=== PATIENT | female | born 1995 | race African-American/Black ===

== ENCOUNTER 2017-10-26 17:52 | Inpatient (IN) ==
[2017-10-26 19:39] LABS: Apearance,Urine CLOUDY (Clear); Bacteria,Urine Occasional /HPF (Few); Bilirubin,Urine Negative (Negative); Blood, Urine Small mg/dL (Negative); Glucose,Urine (UA) >=500 mg/dL (Negative); Granular Casts,Urine 2 /LPF (0-1); Hyaline Casts,Urine 5 /LPF (0-3); Ketones,Urine 20 mg/dL (Negative); Mucus,Urine Few /LPF (Occasional); Nitrite,Urine Negative (Negative); Protein,Urine 100 MG/DL; RBC,Urine 7 /HPF (0-4); Squamous Epithelial Cell,Urine Occasional /HPF (0-10); Urine Color Amber (Yellow); Urine Specific Gravity 1.022 (1.001-1.035); WBC,Urine 20 /HPF (0-6)
[2017-10-26] MEDS ORDERED: ONDANSETRON 4 MG/2 ML VIAL IV STA (20:12)
[2017-10-26] MEDS ORDERED: SODIUM CHLORIDE 0.9% 1,000 ML IV STA (20:12)
[2017-10-26] MEDS ORDERED: INSULIN REGULAR 100 UNIT/ML IV STA (20:13)
[2017-10-26] MEDS ORDERED: cefTRIAXone 1,000 MG in SODIUM CHLORIDE 0.9% 100 ML IV STA (20:13)
[2017-10-26] MEDS ORDERED: cefTRIAXone 1,000 MG VIAL ONE (20:15)
[2017-10-26 20:19] LABS: Basophils % 0.4 % (0.0-0.8); Eosinophils % 0.5 % (0.00-10.9); Hematocrit 30.7 VOL% (35.7-47.0); Hemoglobin 9.8 GM/DL (12.0-16.0); Immature Granulocytes % 0.5 %; Immature Granulocytes Absolute 0.04 #; Lymphocytes # 1.3 10*3/uL (1.4-4.0); Lymphocytes % 15.6 % (21.3-54.2); Mean Corpuscular HGB Conc 31.9 GM/DL (32-36); Mean Corpuscular Hemoglobin 25 PG (27-34); Mean Corpuscular Volume 79.3 FL (87-102); Mean Platelet Volume 10.2 FL (9.6-12.0); Monocytes # 0.6 10*3/uL (0.11-0.8); Monocytes % 6.8 % (1.7-12.7); Neutrophils # 6.1 10*3/uL (1.4-7.4); Neutrophils % 76.2 % (38.7-73.9); Platelet Count 351 T/CUMM (130-400); Red Blood Count 3.87 MC/CUMM (3.8-5.5); Red Cell Distribution Width 13.2 % (9.3-17.3); White Blood Count 8.1 T/CUMM (4-12)
[2017-10-26] MEDS ORDERED: ONDANSETRON 4 MG/2 ML VIAL ONE (20:40)
[2017-10-26] MEDS ORDERED: INSULIN REGULAR 100 UNIT/ML ONE (20:42)
[2017-10-26 20:46] LABS: Alanine Aminotransferase 13 U/L (13-56); Albumin 2.1 G/DL (3.4-5.0); Alkaline Phosphatase 949 U/L (45-117); Amylase 42 U/L (25-115); Aspartate Amino Transferase 12 U/L (0-37); Bilirubin,Total < 0.39 MG/DL (0.2-1.0); Blood Urea Nitrogen 9 MG/DL (7-18); Glucose 349 MG/DL (74-106); Osmolality,Calculated 270.9 MOS/KG (273-304); Potassium 3.9 MMOL/L (3.5-5.1); Sodium 129 MMOL/L (136-145); Total Protein 8.5 G/DL (6.4-8.3)
[2017-10-26 23:59] LABS: Apearance,Urine Slightly Hazy (Clear); Bilirubin,Urine Negative (Negative); Blood, Urine Small mg/dL (Negative); Glucose,Urine (UA) >=500 mg/dL (Negative); Hyaline Casts,Urine 1 /LPF (0-3); Ketones,Urine 80 mg/dL (Negative); Mucus,Urine Occasional /LPF (Occasional); Nitrite,Urine Negative (Negative); Protein,Urine 100 MG/DL; RBC,Urine 13 /HPF (0-4); Squamous Epithelial Cell,Urine Occasional /HPF (0-10); Urine Color Yellow (Yellow); Urine Specific Gravity 1.027 (1.001-1.035); WBC,Urine 44 /HPF (0-6)
[2017-10-26] MEDS ORDERED: DEXTROSE 50% 25 GM/50 ML VIAL IV PRN (23:59)
[2017-10-26] MEDS ORDERED: GLUCAGON 1 MG VIAL IM PRN (23:59)
[2017-10-27] MEDS: ACETAMINOPHEN 325 MG TABLET PO PRN ×2 (00:59→11:19)
[2017-10-27] MEDS: AMPICILLIN INJ 2,000 MG in SODIUM CHLORIDE 0.9% 100 ML IV SCH ×4 (01:02→17:28)
[2017-10-27] MEDS: LACTATED RINGERS 1,000 ML IV SCH ×3 (01:05→22:06)
[2017-10-27] MEDS ORDERED: INSULIN LISPRO 100 UNIT/ML SUBCUT SCH (02:00)
[2017-10-27] MEDS ORDERED: GLUCAGON 1 MG VIAL IM PRN (02:12)
[2017-10-27] MEDS ORDERED: DEXTROSE 50% 25 GM/50 ML VIAL IV PRN (02:12)
[2017-10-27] MEDS: INSULIN REGULAR 100 UNIT/ML SUBCUT SCH ×4 (02:42→19:58)
[2017-10-27 04:31] LABS: Basophils % 0.3 % (0.0-0.8); Eosinophils % 0.5 % (0.00-10.9); Hematocrit 27.3 VOL% (35.7-47.0); Hemoglobin 8.9 GM/DL (12.0-16.0); Immature Granulocytes % 0.7 %; Immature Granulocytes Absolute 0.05 #; Lymphocytes # 1.4 10*3/uL (1.4-4.0); Lymphocytes % 18.7 % (21.3-54.2); Mean Corpuscular HGB Conc 32.6 GM/DL (32-36); Mean Corpuscular Hemoglobin 26 PG (27-34); Mean Corpuscular Volume 78.2 FL (87-102); Mean Platelet Volume 10.5 FL (9.6-12.0); Monocytes # 0.5 10*3/uL (0.11-0.8); Monocytes % 6.9 % (1.7-12.7); Neutrophils # 5.5 10*3/uL (1.4-7.4); Neutrophils % 72.9 % (38.7-73.9); Platelet Count 339 T/CUMM (130-400); Red Blood Count 3.49 MC/CUMM (3.8-5.5); White Blood Count 7.5 T/CUMM (4-12)
[2017-10-27 04:56] LABS: Albumin 1.8 G/DL (3.4-5.0); Bilirubin,Total 0.4 MG/DL (0.2-1.0); Calcium 8.2 MG/DL (8.5-10.1); Osmolality,Calculated 275.5 MOS/KG (273-304); Potassium 3.8 MMOL/L (3.5-5.1); Total Protein 6.6 G/DL (6.4-8.3)
[2017-10-27] MEDS: ONDANSETRON 4 MG/2 ML VIAL IV PRN (11:24)
[2017-10-27] MEDS: DOCUSATE SODIUM 100 MG CAPSULE PO SCH (22:06)
[2017-10-28] MEDS: AMPICILLIN INJ 2,000 MG in SODIUM CHLORIDE 0.9% 100 ML IV SCH ×2 (00:23→06:19)
[2017-10-28] MEDS: INSULIN REGULAR 100 UNIT/ML SUBCUT SCH ×2 (01:53→07:42)
[2017-10-28] MEDS: ACETAMINOPHEN 325 MG TABLET PO PRN (07:01)
[2017-10-28] MEDS: ONDANSETRON 4 MG/2 ML VIAL IV PRN (07:06)
[2017-10-28 07:21] VITALS: BP 114/70
[2017-10-28] MEDS: LACTATED RINGERS 1,000 ML IV SCH ×2 (09:58)
[2017-10-28] MEDS: DOCUSATE SODIUM 100 MG CAPSULE PO SCH (09:59)
== END 2017-10-28 12:45 | disposition home or self-care (01) | DRG 566 ==
LOC: N.ED 17:52 → N.EDINP 22:04 → N.OB 22:29
PROVIDERS: ADMIT Obstetrics & Gynecology; ATTEND Obstetrics & Gynecology

== ENCOUNTER 2017-10-28 14:33 | Inpatient (IN) ==
[2017-10-28 16:15] LABS: Basophils % 0.4 % (0.0-0.8); Eosinophils # 0.1 10*3/uL (0.0-0.87); Eosinophils % 1.3 % (0.00-10.9); Hematocrit 29.3 VOL% (35.7-47.0); Hemoglobin 9.5 GM/DL (12.0-16.0); Immature Granulocytes % 0.4 %; Immature Granulocytes Absolute 0.03 #; Lymphocytes # 1.3 10*3/uL (1.4-4.0); Lymphocytes % 16.7 % (21.3-54.2); Mean Corpuscular HGB Conc 32.4 GM/DL (32-36); Mean Corpuscular Hemoglobin 26 PG (27-34); Mean Corpuscular Volume 80.1 FL (87-102); Mean Platelet Volume 10.3 FL (9.6-12.0); Monocytes # 0.5 10*3/uL (0.11-0.8); Monocytes % 7.2 % (1.7-12.7); Neutrophils # 5.6 10*3/uL (1.4-7.4); Platelet Count 339 T/CUMM (130-400); Red Blood Count 3.66 MC/CUMM (3.8-5.5); Red Cell Distribution Width 13.3 % (9.3-17.3); White Blood Count 7.5 T/CUMM (4-12)
[2017-10-28 16:31] LABS: Calcium 8.7 MG/DL (8.5-10.1); Osmolality,Calculated 273.4 MOS/KG (273-304); Potassium 4.2 MMOL/L (3.5-5.1)
[2017-10-28] MEDS ORDERED: ceFAZolin 1,000 MG in SYRINGE 1 EACH IV SCH (17:00)
[2017-10-28] MEDS ORDERED: ceFAZolin 1,000 MG VIAL ONE (17:07)
[2017-10-28 17:34] LABS: Apearance,Urine CLEAR (Clear); Bacteria,Urine Occasional /HPF (Few); Bilirubin,Urine Negative (Negative); Blood, Urine Negative (Negative); Glucose,Urine (UA) >=500 mg/dL (Negative); Ketones,Urine 5 mg/dL (Negative); Mucus,Urine Occasional /LPF (Occasional); Nitrite,Urine Negative (Negative); Protein,Urine 30 MG/DL; RBC,Urine 2 /HPF (0-4); Squamous Epithelial Cell,Urine Occasional /HPF (0-10); Urine Color Yellow (Yellow); Urine Specific Gravity 1.015 (1.001-1.035); WBC,Urine 3 /HPF (0-6)
[2017-10-28] MEDS ORDERED: BISACODYL 10 MG SUPP RECTAL PRN (17:57)
[2017-10-28] MEDS ORDERED: ACETAMINOPHEN 325 MG TABLET PO PRN (17:57)
[2017-10-28] MEDS ORDERED: GLUCAGON 1 MG VIAL IM PRN ×2 (17:57→18:16)
[2017-10-28] MEDS ORDERED: MAGNESIUM HYDROXIDE SUSP 30 ML UDCUP PO PRN (17:57)
[2017-10-28] MEDS ORDERED: LACTATED RINGERS 1,000 ML IV SCH (17:57)
[2017-10-28] MEDS ORDERED: DEXTROSE 50% 25 GM/50 ML VIAL IV PRN ×3 (17:57→18:18)
[2017-10-28] MEDS ORDERED: INSULIN NPH 100 UNIT/ML SUBCUT ONE (18:30)
[2017-10-28] MEDS ORDERED: INSULIN REGULAR 100 UNIT/ML SUBCUT ONE (18:30)
[2017-10-28] MEDS: DOCUSATE SODIUM 100 MG CAPSULE PO SCH (23:35)
[2017-10-29 06:34] LABS: Basophils % 0.5 % (0.0-0.8); Eosinophils # 0.1 10*3/uL (0.0-0.87); Eosinophils % 1.4 % (0.00-10.9); Hematocrit 26.6 VOL% (35.7-47.0); Hemoglobin 8.6 GM/DL (12.0-16.0); Immature Granulocytes % 0.5 %; Immature Granulocytes Absolute 0.03 #; Lymphocytes # 1.4 10*3/uL (1.4-4.0); Lymphocytes % 21.2 % (21.3-54.2); Mean Corpuscular HGB Conc 32.3 GM/DL (32-36); Mean Corpuscular Hemoglobin 26 PG (27-34); Mean Corpuscular Volume 79.4 FL (87-102); Mean Platelet Volume 10.3 FL (9.6-12.0); Monocytes # 0.6 10*3/uL (0.11-0.8); Monocytes % 9.7 % (1.7-12.7); Neutrophils # 4.3 10*3/uL (1.4-7.4); Neutrophils % 66.7 % (38.7-73.9); Platelet Count 315 T/CUMM (130-400); Red Blood Count 3.35 MC/CUMM (3.8-5.5); Red Cell Distribution Width 13.2 % (9.3-17.3); White Blood Count 6.4 T/CUMM (4-12)
[2017-10-29] MEDS: DOCUSATE SODIUM 100 MG CAPSULE PO SCH ×2 (08:16→22:06)
[2017-10-29] MEDS ORDERED: DEXTROSE 50% 25 GM/50 ML VIAL IV PRN ×5 (08:28→17:12)
[2017-10-29] MEDS ORDERED: GLUCAGON 1 MG VIAL IM PRN ×5 (08:28→17:12)
[2017-10-29] MEDS ORDERED: LIDOCAINE 1% 5 ML VIAL ONE (08:42)
[2017-10-29] MEDS: INSULIN REGULAR 100 UNIT/ML SUBCUT SCH ×5 (09:13→21:53)
[2017-10-29] MEDS ORDERED: PROPOFOL 200 MG/20 ML VIAL IV ONE (10:12)
[2017-10-29] MEDS ORDERED: fentaNYL 100 MCG/2 ML VIAL ONE (10:12)
[2017-10-29] MEDS ORDERED: ONDANSETRON 4 MG/2 ML VIAL ONE (10:12)
[2017-10-29] MEDS ORDERED: ACETAMINOPHEN 1,000 MG/100 ML VIAL IV ONE (10:17)
[2017-10-29] MEDS ORDERED: ACETAMINOPHEN INJ 1,000 MG in PREMIX 1 EACH IV ONE (10:19)
[2017-10-29] MEDS ORDERED: INSULIN NPH 100 UNIT/ML SUBCUT ONE (22:00)
[2017-10-30] MEDS: ONDANSETRON 4 MG/2 ML VIAL IV PRN ×2 (00:11→11:40)
[2017-10-30] MEDS ORDERED: ACETAMINOPHEN 325 MG TABLET PO PRN (00:18)
[2017-10-30] MEDS ORDERED: ACETAMINOPHEN 325 MG TABLET ONE (00:26)
[2017-10-30 06:35] LABS: Basophils % 0.3 % (0.0-0.8); Eosinophils # 0.1 10*3/uL (0.0-0.87); Eosinophils % 1.4 % (0.00-10.9); Hematocrit 24.4 VOL% (35.7-47.0); Hemoglobin 8.1 GM/DL (12.0-16.0); Immature Granulocytes % 0.5 %; Immature Granulocytes Absolute 0.03 #; Lymphocytes # 1.4 10*3/uL (1.4-4.0); Lymphocytes % 22.5 % (21.3-54.2); Mean Corpuscular HGB Conc 33.2 GM/DL (32-36); Mean Corpuscular Hemoglobin 26 PG (27-34); Mean Corpuscular Volume 78.5 FL (87-102); Mean Platelet Volume 10.4 FL (9.6-12.0); Monocytes # 0.5 10*3/uL (0.11-0.8); Monocytes % 8.2 % (1.7-12.7); Neutrophils # 4.2 10*3/uL (1.4-7.4); Neutrophils % 67.1 % (38.7-73.9); Platelet Count 321 T/CUMM (130-400); Red Blood Count 3.11 MC/CUMM (3.8-5.5); Red Cell Distribution Width 13.4 % (9.3-17.3); White Blood Count 6.2 T/CUMM (4-12)
[2017-10-30] MEDS: ACETAMINOPHEN 500 MG TABLET PO PRN (07:00)
[2017-10-30] MEDS ORDERED: INSULIN NPH 100 UNIT/ML SUBCUT SCH ×3 (07:30→18:52)
[2017-10-30] MEDS: INSULIN REGULAR 100 UNIT/ML SUBCUT SCH ×7 (07:49→20:57)
[2017-10-30] MEDS ORDERED: FERROUS SULFATE ER 140 MG TABLET PO SCH (09:00)
[2017-10-30] MEDS: DOCUSATE SODIUM 100 MG CAPSULE PO SCH ×2 (10:09→22:19)
[2017-10-30] MEDS: CALCIUM CARBONATE CHEW 500 MG TABLET PO PRN (16:04)
[2017-10-30] MEDS ORDERED: INSULIN REGULAR 100 UNIT/ML SUBCUT SCH (18:52)
[2017-10-30] MEDS: CLINDAMYCIN INJ 600 MG in PREMIX 1 EACH IV SCH (19:35)
[2017-10-30] MEDS: ENOXAPARIN 40 MG/0.4 ML SYRINGE SUBCUT SCH (19:36)
[2017-10-31] MEDS: CLINDAMYCIN INJ 600 MG in PREMIX 1 EACH IV SCH ×3 (03:31→18:07)
[2017-10-31] MEDS: CALCIUM CARBONATE CHEW 500 MG TABLET PO PRN (03:36)
[2017-10-31] MEDS: ACETAMINOPHEN 500 MG TABLET PO PRN (03:36)
[2017-10-31 04:07] LABS: Basophils % 0.3 % (0.0-0.8); Eosinophils # 0.1 10*3/uL (0.0-0.87); Eosinophils % 1.4 % (0.00-10.9); Hemoglobin 8.2 GM/DL (12.0-16.0); Immature Granulocytes % 0.5 %; Immature Granulocytes Absolute 0.03 #; Lymphocytes # 1.5 10*3/uL (1.4-4.0); Lymphocytes % 24.2 % (21.3-54.2); Mean Corpuscular HGB Conc 31.5 GM/DL (32-36); Mean Corpuscular Hemoglobin 26 PG (27-34); Mean Corpuscular Volume 80.7 FL (87-102); Mean Platelet Volume 10.8 FL (9.6-12.0); Monocytes # 0.6 10*3/uL (0.11-0.8); Neutrophils # 4.1 10*3/uL (1.4-7.4); Neutrophils % 64.6 % (38.7-73.9); Platelet Count 324 T/CUMM (130-400); Red Blood Count 3.22 MC/CUMM (3.8-5.5); Red Cell Distribution Width 13.5 % (9.3-17.3); White Blood Count 6.3 T/CUMM (4-12)
[2017-10-31] MEDS ORDERED: INSULIN REGULAR 100 UNIT/ML SUBCUT SCH ×2 (07:30→16:30)
[2017-10-31] MEDS: DOCUSATE SODIUM 100 MG CAPSULE PO SCH ×2 (08:07→21:31)
[2017-10-31] MEDS: FERROUS SULFATE ER 140 MG TABLET PO SCH ×2 (08:07→21:31)
[2017-10-31] MEDS: INSULIN REGULAR 100 UNIT/ML SUBCUT SCH ×3 (09:49→20:15)
[2017-10-31] MEDS: INSULIN NPH 100 UNIT/ML SUBCUT SCH (16:27)
[2017-10-31] MEDS: ENOXAPARIN 40 MG/0.4 ML SYRINGE SUBCUT SCH (18:07)
[2017-10-31] MEDS ORDERED: INSULIN NPH 100 UNIT/ML SUBCUT SCH (21:16)
[2017-11-01] MEDS: INSULIN REGULAR 100 UNIT/ML SUBCUT SCH ×6 (02:35→20:35)
[2017-11-01] MEDS: CLINDAMYCIN INJ 600 MG in PREMIX 1 EACH IV SCH ×3 (02:38→18:08)
[2017-11-01] MEDS: DOCUSATE SODIUM 100 MG CAPSULE PO SCH ×2 (09:03→22:31)
[2017-11-01] MEDS: FERROUS SULFATE ER 140 MG TABLET PO SCH ×2 (09:04→22:33)
[2017-11-01] MEDS: MULTIVITAMIN (PRENATAL) TABLET PO SCH (10:00)
[2017-11-01] MEDS: INSULIN NPH 100 UNIT/ML SUBCUT SCH (16:35)
[2017-11-01] MEDS: ENOXAPARIN 40 MG/0.4 ML SYRINGE SUBCUT SCH (18:12)
[2017-11-01] MEDS: ceFAZolin 1,000 MG in SYRINGE 1 EACH IV SCH (22:33)
[2017-11-02] MEDS: ceFAZolin 1,000 MG in SYRINGE 1 EACH IV SCH ×3 (06:09→21:39)
[2017-11-02] MEDS: INSULIN REGULAR 100 UNIT/ML SUBCUT SCH ×7 (06:15→20:45)
[2017-11-02] MEDS: INSULIN NPH 100 UNIT/ML SUBCUT SCH ×2 (08:45→17:30)
[2017-11-02] MEDS: MULTIVITAMIN (PRENATAL) TABLET PO SCH (08:51)
[2017-11-02] MEDS: DOCUSATE SODIUM 100 MG CAPSULE PO SCH ×2 (08:51→21:37)
[2017-11-02] MEDS: FERROUS SULFATE ER 140 MG TABLET PO SCH ×2 (08:51→21:37)
[2017-11-02] MEDS: ENOXAPARIN 40 MG/0.4 ML SYRINGE SUBCUT SCH (17:55)
[2017-11-03] MEDS: ACETAMINOPHEN 500 MG TABLET PO PRN (00:33)
[2017-11-03] MEDS: ceFAZolin 1,000 MG in SYRINGE 1 EACH IV SCH ×2 (05:47→13:31)
[2017-11-03] MEDS: INSULIN REGULAR 100 UNIT/ML SUBCUT SCH ×6 (07:26→20:19)
[2017-11-03] MEDS: INSULIN NPH 100 UNIT/ML SUBCUT SCH ×2 (09:03→17:37)
[2017-11-03] MEDS: FERROUS SULFATE ER 140 MG TABLET PO SCH ×2 (09:08→20:19)
[2017-11-03] MEDS: DOCUSATE SODIUM 100 MG CAPSULE PO SCH ×2 (09:08→20:19)
[2017-11-03] MEDS: MULTIVITAMIN (PRENATAL) TABLET PO SCH (09:08)
[2017-11-03] MEDS: ENOXAPARIN 40 MG/0.4 ML SYRINGE SUBCUT SCH (17:38)
[2017-11-03] MEDS: AMOXICILLIN/CLAV 500 MG TABLET PO SCH (20:19)
[2017-11-04 07:06] VITALS: BP 129/77
[2017-11-04] MEDS: INSULIN REGULAR 100 UNIT/ML SUBCUT SCH ×2 (07:22→08:17)
[2017-11-04] MEDS: DOCUSATE SODIUM 100 MG CAPSULE PO SCH (08:14)
[2017-11-04] MEDS: FERROUS SULFATE ER 140 MG TABLET PO SCH (08:14)
[2017-11-04] MEDS: AMOXICILLIN/CLAV 500 MG TABLET PO SCH (08:14)
[2017-11-04] MEDS: MULTIVITAMIN (PRENATAL) TABLET PO SCH (08:14)
[2017-11-04] MEDS: INSULIN NPH 100 UNIT/ML SUBCUT SCH (08:16)
== END 2017-11-04 10:50 | disposition home or self-care (01) | DRG 952 ==
LOC: N.ED 14:33 → N.EDINP 14:33 → N.OB 17:30
PROVIDERS: ADMIT Obstetrics & Gynecology; ATTEND Obstetrics & Gynecology

== ENCOUNTER 2017-12-22 11:16 | Observation (INO) ==
[2017-12-22 12:09] LABS: Apearance,Urine CLEAR (Clear); Bilirubin,Urine Negative (Negative); Blood, Urine Small mg/dL (Negative); Glucose,Urine (UA) >=500 mg/dL (Negative); Ketones,Urine 20 mg/dL (Negative); Nitrite,Urine Negative (Negative); Protein,Urine Negative; RBC,Urine <1 /HPF (0-4); Urine Color Straw (Yellow); Urine Specific Gravity 1.027 (1.001-1.035); Urine Urobilinogen < 2.0 EU/DL (0.2-1.0)
[2017-12-22] MEDS ORDERED: DEXTROSE 50% 25 GM/50 ML VIAL IV PRN (12:18)
[2017-12-22] MEDS ORDERED: GLUCAGON 1 MG VIAL IM PRN (12:18)
[2017-12-22] MEDS ORDERED: INSULIN REGULAR 100 UNIT/ML SUBCUT SCH (12:20)
[2017-12-22 13:06] LABS: Basophils % 0.4 % (0.0-0.8); Eosinophils # 0.1 10*3/uL (0.0-0.87); Eosinophils % 1.2 % (0.00-10.9); Hemoglobin 10.8 GM/DL (12.0-16.0); Immature Granulocytes % 0.4 %; Immature Granulocytes Absolute 0.02 #; Lymphocytes # 1.4 10*3/uL (1.4-4.0); Lymphocytes % 27.8 % (21.3-54.2); Mean Corpuscular HGB Conc 33.8 GM/DL (32-36); Mean Corpuscular Hemoglobin 27 PG (27-34); Mean Corpuscular Volume 78.6 FL (87-102); Mean Platelet Volume 12.5 FL (9.6-12.0); Monocytes # 0.4 10*3/uL (0.11-0.8); Monocytes % 7.3 % (1.7-12.7); Neutrophils # 3.1 10*3/uL (1.4-7.4); Neutrophils % 62.9 % (38.7-73.9); Platelet Count 198 T/CUMM (130-400); Red Blood Count 4.07 MC/CUMM (3.8-5.5); Red Cell Distribution Width 15.1 % (9.3-17.3)
== END 2017-12-22 14:20 | disposition home or self-care (01) ==
LOC: N.LDOUT 11:16 → N.LD 11:16
PROVIDERS: ADMIT Obstetrics & Gynecology; ATTEND Obstetrics & Gynecology

== ENCOUNTER 2018-01-25 23:27 | Inpatient (IN) ==
[2018-01-26] MEDS ORDERED: MEPERIDINE 50 MG/1 ML VIAL IM PRN (00:10)
[2018-01-26] MEDS ORDERED: ONDANSETRON 4 MG/2 ML VIAL IV PRN ×2 (00:10→21:50)
[2018-01-26] MEDS ORDERED: BUTORPHANOL 1 MG/ML VIAL IV PRN (00:10)
[2018-01-26] MEDS ORDERED: LACTATED RINGERS 250 ML IV ONE (00:10)
[2018-01-26] MEDS: LACTATED RINGERS 1,000 ML IV SCH ×2 (01:00→07:30)
[2018-01-26] MEDS: BETAMETH SODIUM PHOS/ACETATE 30 MG/5 ML VIAL IM SCH ×2 (01:06→12:55)
[2018-01-26] MEDS: AMPICILLIN INJ 2,000 MG in SODIUM CHLORIDE 0.9% 100 ML IV SCH ×2 (01:25→12:56)
[2018-01-26 01:35] LABS: Basophils % 0.4 % (0.0-0.8); Eosinophils # 0.1 10*3/uL (0.0-0.87); Eosinophils % 1.5 % (0.00-10.9); Hematocrit 33.8 VOL% (35.7-47.0); Hemoglobin 10.7 GM/DL (12.0-16.0); Immature Granulocytes % 0.4 %; Immature Granulocytes Absolute 0.02 #; Lymphocytes # 1.8 10*3/uL (1.4-4.0); Lymphocytes % 32.8 % (21.3-54.2); Mean Corpuscular HGB Conc 31.7 GM/DL (32-36); Mean Corpuscular Hemoglobin 25 PG (27-34); Mean Platelet Volume 12.7 FL (9.6-12.0); Monocytes # 0.4 10*3/uL (0.11-0.8); Neutrophils # 3.1 10*3/uL (1.4-7.4); Neutrophils % 56.9 % (38.7-73.9); Platelet Count 173 T/CUMM (130-400); Red Blood Count 4.28 MC/CUMM (3.8-5.5); Red Cell Distribution Width 13.2 % (9.3-17.3); White Blood Count 5.5 T/CUMM (4-12)
[2018-01-26 02:02] LABS: Alanine Aminotransferase 17 U/L (13-56); Albumin 2.2 G/DL (3.4-5.0); Alkaline Phosphatase 293 U/L (45-117); Aspartate Amino Transferase 19 U/L (0-37); Bilirubin,Total < 0.39 MG/DL (0.2-1.0); Blood Urea Nitrogen 10 MG/DL (7-18); Calcium 8.6 MG/DL (8.5-10.1); Glucose 356 MG/DL (74-106); Osmolality,Calculated 278.4 MOS/KG (273-304); Potassium 4.5 MMOL/L (3.5-5.1); Sodium 133 MMOL/L (136-145); Total Protein 6.8 G/DL (6.4-8.3)
[2018-01-26 03:18] LABS: HIV Antigen/Antibody Result Nonreactive (Nonreactive); Hepatitis B Surface Ag Quant < 0.10 Index; Hepatitis B Surface Ag Result Negative (Negative)
[2018-01-26] MEDS ORDERED: GLUCAGON 1 MG VIAL IM PRN ×3 (06:17→21:50)
[2018-01-26] MEDS ORDERED: DEXTROSE 50% 25 GM/50 ML VIAL IV PRN ×3 (06:17→21:50)
[2018-01-26] MEDS: INSULIN REGULAR 100 UNIT/ML SUBCUT SCH ×3 (07:30→16:09)
[2018-01-26] MEDS ORDERED: MEPERIDINE 50 MG/1 ML VIAL IV PRN (11:42)
[2018-01-26] MEDS ORDERED: INSULIN REGULAR 100 UNIT/ML SUBCUT SCH (12:00)
[2018-01-26] MEDS ORDERED: CITRIC ACID/SODIUM CITRATE 30 ML UDCUP PO ONE (15:36)
[2018-01-26] MEDS ORDERED: FAMOTIDINE 20 MG/2 ML VIAL IV ONE (15:36)
[2018-01-26] MEDS ORDERED: ceFAZolin 2,000 MG in PREMIX 1 EACH IV ONE (15:37)
[2018-01-26] MEDS ORDERED: BUPIVACAINE SPINAL 0.75% 2 ML AMP SPINAL ONE (16:41)
[2018-01-26] MEDS ORDERED: OXYTOCIN/LR 30 UNIT/1,000 ML BAG IV ONE (17:00)
[2018-01-26] MEDS ORDERED: OXYTOCIN 10 UNIT/ML VIAL IM ONE (17:00)
[2018-01-26] MEDS ORDERED: PHENYLEPHRINE 1 MG/10 ML SYRINGE IV ONE (18:11)
[2018-01-26] MEDS ORDERED: MORPHINE 10 MG/10 ML VIAL ONE (18:12)
[2018-01-26 18:24] LABS: Cord Arterial Blood HCO3 25.8 MMOL/L
[2018-01-26 18:30] LABS: Cord Venous Blood HCO3 24.9 MMOL/L; Cord Venous Blood PCO2 42.9 MMHG; Cord Venous Blood PO2 36.6 MMHG
[2018-01-26 18:39] LABS: Cord Arterial Blood HCO3 24.5 MMOL/L
[2018-01-26 18:41] LABS: Cord Venous Blood HCO3 23.8 MMOL/L; Cord Venous Blood PCO2 44.4 MMHG
[2018-01-26 18:49] LABS: Apearance,Urine CLEAR (Clear); Bilirubin,Urine Negative (Negative); Blood, Urine Negative (Negative); Glucose,Urine (UA) >=500 mg/dL (Negative); Ketones,Urine 20 mg/dL (Negative); Nitrite,Urine Negative (Negative); Protein,Urine Negative; RBC,Urine 3 /HPF (0-4); Urine Color Yellow (Yellow); Urine Specific Gravity 1.014 (1.001-1.035); Urine Urobilinogen < 2.0 EU/DL (0.2-1.0); WBC,Urine 1 /HPF (0-6)
[2018-01-26] MEDS ORDERED: PROMETHAZINE 25 MG/1 ML VIAL IM ONE (20:19)
[2018-01-26] MEDS ORDERED: SIMETHICONE CHEW 80 MG TABLET PO PRN (21:50)
[2018-01-26] MEDS ORDERED: OXYTOCIN/LR 20 UNIT/1,000 ML BAG IV ONE (21:50)
[2018-01-26] MEDS ORDERED: RHO(D) IMMUNE GLOBULIN 300 MCG SYRINGE IM ONE (21:50)
[2018-01-26] MEDS ORDERED: LACTATED RINGERS 1,000 ML IV SCH (21:50)
[2018-01-26] MEDS ORDERED: ACETAMINOPHEN 325 MG TABLET PO PRN (21:50)
[2018-01-27] MEDS: DOCUSATE SODIUM 100 MG CAPSULE PO SCH ×3 (01:26→21:11)
[2018-01-27 02:16] LABS: Basophils % 0.1 % (0.0-0.8); Hematocrit 35.4 VOL% (35.7-47.0); Hemoglobin 11.4 GM/DL (12.0-16.0); Immature Granulocytes % 0.4 %; Immature Granulocytes Absolute 0.06 #; Lymphocytes # 1.5 10*3/uL (1.4-4.0); Lymphocytes % 10.1 % (21.3-54.2); Mean Corpuscular HGB Conc 32.2 GM/DL (32-36); Mean Corpuscular Hemoglobin 25 PG (27-34); Mean Corpuscular Volume 77.5 FL (87-102); Monocytes # 1.2 10*3/uL (0.11-0.8); Monocytes % 8.2 % (1.7-12.7); Neutrophils # 11.9 10*3/uL (1.4-7.4); Neutrophils % 81.2 % (38.7-73.9); Platelet Count 158 T/CUMM (130-400); Red Blood Count 4.57 MC/CUMM (3.8-5.5); Red Cell Distribution Width 13.1 % (9.3-17.3); White Blood Count 14.7 T/CUMM (4-12)
[2018-01-27] MEDS ORDERED: GLUCAGON 1 MG VIAL IM PRN ×2 (03:35→21:20)
[2018-01-27] MEDS ORDERED: DEXTROSE 50% 25 GM/50 ML VIAL IV PRN ×2 (03:35→21:20)
[2018-01-27] MEDS ORDERED: diphenhydrAMINE CAP 25 MG CAPSULE PO PRN (06:59)
[2018-01-27] MEDS ORDERED: diphenhydrAMINE 50 MG/1 ML VIAL IV PRN (07:02)
[2018-01-27] MEDS ORDERED: INSULIN LISPRO 100 UNIT/ML SUBCUT SCH (08:00)
[2018-01-27] MEDS: MULTIVITAMIN (PRENATAL) TABLET PO SCH (08:10)
[2018-01-27] MEDS: INSULIN LISPRO 100 UNIT/ML SUBCUT SCH ×3 (08:13→17:03)
[2018-01-27] MEDS: INSULIN GLARGINE 100 UNIT/ML SUBCUT SCH ×2 (08:13→17:03)
[2018-01-27] MEDS ORDERED: INSULIN GLARGINE 100 UNIT/ML SUBCUT SCH (09:00)
[2018-01-27 10:39] LABS: Basophils % 0.1 % (0.0-0.8); Eosinophils % 0.1 % (0.00-10.9); Hematocrit 32.1 VOL% (35.7-47.0); Hemoglobin 10.6 GM/DL (12.0-16.0); Immature Granulocytes % 0.9 %; Immature Granulocytes Absolute 0.13 #; Lymphocytes # 1.6 10*3/uL (1.4-4.0); Mean Corpuscular Hemoglobin 25 PG (27-34); Mean Corpuscular Volume 76.2 FL (87-102); Monocytes % 7.1 % (1.7-12.7); Neutrophils # 11.7 10*3/uL (1.4-7.4); Neutrophils % 80.8 % (38.7-73.9); Platelet Count 146 T/CUMM (130-400); Red Blood Count 4.21 MC/CUMM (3.8-5.5); Red Cell Distribution Width 13.3 % (9.3-17.3); White Blood Count 14.4 T/CUMM (4-12)
[2018-01-27] MEDS: IBUPROFEN 800 MG TABLET PO PRN (15:40)
[2018-01-27] MEDS ORDERED: INSULIN REGULAR 100 UNIT/ML ONE (21:31)
[2018-01-27] MEDS: INSULIN REGULAR 100 UNIT/ML SUBCUT SCH (21:38)
[2018-01-28] MEDS: DOCUSATE SODIUM 100 MG CAPSULE PO SCH ×2 (08:26→21:31)
[2018-01-28] MEDS: INSULIN REGULAR 100 UNIT/ML SUBCUT SCH ×4 (08:26→21:41)
[2018-01-28] MEDS: MULTIVITAMIN (PRENATAL) TABLET PO SCH (08:26)
[2018-01-28] MEDS: INSULIN LISPRO 100 UNIT/ML SUBCUT SCH ×3 (08:26→21:40)
[2018-01-28] MEDS: INSULIN GLARGINE 100 UNIT/ML SUBCUT SCH ×2 (08:27→17:14)
[2018-01-28] MEDS: IBUPROFEN 800 MG TABLET PO PRN ×2 (09:55→18:15)
[2018-01-28] MEDS: MAGNESIUM HYDROXIDE SUSP 30 ML UDCUP PO PRN ×2 (10:16→21:31)
[2018-01-29] MEDS: INSULIN REGULAR 100 UNIT/ML SUBCUT SCH (07:37)
[2018-01-29 07:42] VITALS: BP 137/73
[2018-01-29] MEDS: IBUPROFEN 800 MG TABLET PO PRN (08:00)
[2018-01-29] MEDS: INSULIN GLARGINE 100 UNIT/ML SUBCUT SCH (08:49)
[2018-01-29] MEDS: INSULIN LISPRO 100 UNIT/ML SUBCUT SCH (08:50)
[2018-01-29] MEDS: DOCUSATE SODIUM 100 MG CAPSULE PO SCH (08:51)
[2018-01-29] MEDS: MULTIVITAMIN (PRENATAL) TABLET PO SCH (09:13)
== END 2018-01-29 12:30 | disposition home or self-care (01) | DRG 540 ==
LOC: N.LDOUT 23:27 → N.LD 23:28 → N.OB 01-26 21:51
PROVIDERS: ADMIT Obstetrics & Gynecology; ATTEND Obstetrics & Gynecology

== ENCOUNTER 2018-11-30 20:23 | Inpatient (IN) ==
[2018-11-30] MEDS ORDERED: MAGNESIUM SULF RIDER 4 GM in PREMIX 1 EACH IV PRN (20:50)
[2018-11-30] MEDS ORDERED: MAGNESIUM SULF RIDER 2 GM in PREMIX 1 EACH IV PRN (20:50)
[2018-11-30] MEDS ORDERED: CEFTAROLINE 600 MG in SODIUM CHLORIDE 0.9% 100 ML IV STA (21:20)
[2018-11-30 21:41] LABS: Basophils # 0.1 10*3/uL (0.0-0.2); Basophils % 0.4 % (0.0-0.8); Eosinophils % 0.2 % (0.00-10.9); Hematocrit 39.3 VOL% (35.7-47.0); Hemoglobin 12.5 GM/DL (12.0-16.0); Immature Granulocytes % 0.4 %; Immature Granulocytes Absolute 0.05 #; Mean Corpuscular HGB Conc 31.8 GM/DL (32-36); Mean Corpuscular Hemoglobin 26 PG (27-34); Mean Corpuscular Volume 81.5 FL (87-102); Monocytes # 0.9 10*3/uL (0.11-0.8); Monocytes % 6.4 % (1.7-12.7); Neutrophils # 10.3 10*3/uL (1.4-7.4); Neutrophils % 77.6 % (38.7-73.9); Platelet Count 285 T/CUMM (130-400); Red Blood Count 4.82 MC/CUMM (3.8-5.5); Red Cell Distribution Width 11.6 % (9.3-17.3); White Blood Count 13.3 T/CUMM (4-12)
[2018-11-30 21:57] LABS: Calcium 8.6 MG/DL (8.5-10.1); Osmolality,Calculated 286.4 MOS/KG (273-304); Potassium 3.9 MMOL/L (3.5-5.1)
[2018-11-30] MEDS ORDERED: INSULIN REGULAR 100 UNIT/ML IV STA (22:13)
[2018-11-30] MEDS ORDERED: SODIUM CHLORIDE 0.9% 1,000 ML IV STA (22:24)
[2018-11-30] MEDS ORDERED: DEXTROSE 50% 25 GM/50 ML VIAL IV PRN ×2 (23:09→23:15)
[2018-11-30] MEDS ORDERED: ACETAMINOPHEN 325 MG TABLET PO PRN (23:09)
[2018-11-30] MEDS ORDERED: GLUCAGON 1 MG VIAL IM PRN ×3 (23:09→23:18)
[2018-11-30] MEDS ORDERED: DEXTROSE 50% 25 GM/50 ML SYRINGE IV PRN (23:18)
[2018-11-30] MEDS: INSULIN GLARGINE 100 UNIT/ML SUBCUT SCH (23:46)
[2018-12-01] LABS: Apearance,Urine CLEAR (Clear); Bacteria,Urine Occasional /HPF (Few); Bilirubin,Urine Negative (Negative); Blood, Urine Moderate mg/dL (Negative); Glucose,Urine (UA) >=500 mg/dL (Negative); Ketones,Urine Negative (Negative); Nitrite,Urine Negative (Negative); Protein,Urine 100 MG/DL; RBC,Urine 3 /HPF (0-4); Urine Color Straw (Yellow); Urine Specific Gravity 1.031 (1.001-1.035); Urine Urobilinogen < 2.0 EU/DL (0.2-1.0); WBC,Urine 1 /HPF (0-6)
[2018-12-01] MEDS: SODIUM CHLORIDE 0.9% 1,000 ML IV SCH ×4 (01:21→22:11)
[2018-12-01] MEDS: MORPHINE 4 MG/1 ML VIAL IV PRN ×4 (01:22→23:33)
[2018-12-01] MEDS ORDERED: SODIUM CHLORIDE 0.9% 1,000 ML IV SCH (01:50)
[2018-12-01 05:39] LABS: Basophils % 0.3 % (0.0-0.8); Eosinophils # 0.1 10*3/uL (0.0-0.87); Eosinophils % 0.5 % (0.00-10.9); Hematocrit 32.7 VOL% (35.7-47.0); Hemoglobin 10.4 GM/DL (12.0-16.0); Immature Granulocytes % 0.5 %; Immature Granulocytes Absolute 0.07 #; Lymphocytes # 2.5 10*3/uL (1.4-4.0); Lymphocytes % 18.8 % (21.3-54.2); Mean Corpuscular HGB Conc 31.8 GM/DL (32-36); Mean Corpuscular Hemoglobin 26 PG (27-34); Mean Corpuscular Volume 81.1 FL (87-102); Mean Platelet Volume 11.8 FL (9.6-12.0); Monocytes # 1.2 10*3/uL (0.11-0.8); Neutrophils # 9.4 10*3/uL (1.4-7.4); Neutrophils % 70.9 % (38.7-73.9); Platelet Count 235 T/CUMM (130-400); Red Blood Count 4.03 MC/CUMM (3.8-5.5); Red Cell Distribution Width 11.5 % (9.3-17.3); White Blood Count 13.3 T/CUMM (4-12)
[2018-12-01 06:10] LABS: Calcium 7.6 MG/DL (8.5-10.1); Osmolality,Calculated 280.2 MOS/KG (273-304); Potassium 3.8 MMOL/L (3.5-5.1)
[2018-12-01] MEDS ORDERED: INSULIN LISPRO 100 UNIT/ML SUBCUT SCH ×2 (07:30)
[2018-12-01] MEDS: INSULIN LISPRO 100 UNIT/ML SUBCUT SCH ×6 (08:12→21:57)
[2018-12-01] MEDS: PANTOPRAZOLE 40 MG TABLET PO SCH (08:13)
[2018-12-01] MEDS: CEFTAROLINE 600 MG in SODIUM CHLORIDE 0.9% 100 ML IV SCH ×2 (09:14→21:50)
[2018-12-01] MEDS: ONDANSETRON 4 MG/2 ML VIAL IV PRN ×2 (11:51→17:17)
[2018-12-01] MEDS ORDERED: LIDOCAINE 1% 20 ML VIAL ONE (12:53)
[2018-12-01] MEDS ORDERED: KETAMINE 500 MG/10 ML VIAL ONE (13:45)
[2018-12-01] MEDS ORDERED: fentaNYL 100 MCG/2 ML VIAL ONE (13:45)
[2018-12-01] MEDS ORDERED: MIDAZOLAM 2 MG/2 ML VIAL ONE (13:45)
[2018-12-01] MEDS: INSULIN GLARGINE 100 UNIT/ML SUBCUT SCH (21:56)
[2018-12-02] MEDS: SODIUM CHLORIDE 0.9% 1,000 ML IV SCH ×6 (00:40→23:17)
[2018-12-02] MEDS: INSULIN LISPRO 100 UNIT/ML SUBCUT SCH ×6 (08:19→21:12)
[2018-12-02] MEDS: PANTOPRAZOLE 40 MG TABLET PO SCH (08:20)
[2018-12-02] MEDS ORDERED: ALBUTEROL 2.5 MG/3 ML NEB RESP TX PRN (09:09)
[2018-12-02] MEDS: CEFTAROLINE 600 MG in SODIUM CHLORIDE 0.9% 100 ML IV SCH ×2 (10:55→21:07)
[2018-12-02] MEDS: MORPHINE 4 MG/1 ML VIAL IV PRN ×2 (13:22→21:25)
[2018-12-02] MEDS: ONDANSETRON 4 MG/2 ML VIAL IV PRN ×2 (13:26→21:23)
[2018-12-02] MEDS: INSULIN NPH 100 UNIT/ML SUBCUT SCH (17:01)
[2018-12-03] MEDS: SODIUM CHLORIDE 0.9% 1,000 ML IV SCH ×2 (04:51→13:33)
[2018-12-03 05:05] LABS: Basophils % 0.3 % (0.0-0.8); Eosinophils # 0.2 10*3/uL (0.0-0.87); Hematocrit 27.7 VOL% (35.7-47.0); Hemoglobin 8.7 GM/DL (12.0-16.0); Immature Granulocytes % 0.3 %; Immature Granulocytes Absolute 0.03 #; Lymphocytes # 2.2 10*3/uL (1.4-4.0); Lymphocytes % 25.6 % (21.3-54.2); Mean Corpuscular HGB Conc 31.4 GM/DL (32-36); Mean Corpuscular Hemoglobin 25 PG (27-34); Mean Corpuscular Volume 80.8 FL (87-102); Mean Platelet Volume 11.7 FL (9.6-12.0); Monocytes # 0.6 10*3/uL (0.11-0.8); Monocytes % 7.3 % (1.7-12.7); Neutrophils # 5.6 10*3/uL (1.4-7.4); Neutrophils % 64.5 % (38.7-73.9); Platelet Count 222 T/CUMM (130-400); Red Blood Count 3.43 MC/CUMM (3.8-5.5); Red Cell Distribution Width 11.9 % (9.3-17.3); White Blood Count 8.7 T/CUMM (4-12)
[2018-12-03 05:17] LABS: Calcium 7.1 MG/DL (8.5-10.1); Osmolality,Calculated 283.4 MOS/KG (273-304); Potassium 3.5 MMOL/L (3.5-5.1)
[2018-12-03 05:46] LABS: Eosinophils 2 % (0-10); Hypochromasia Slight; Lymphocytes 17 % (20-55); Platelet Estimate Adequate; Polychromasia Few; Segmented Neutrophils 80 % (50-85); Total Cells Counted 100
[2018-12-03] MEDS: PANTOPRAZOLE 40 MG TABLET PO SCH (09:12)
[2018-12-03] MEDS: INSULIN NPH 100 UNIT/ML SUBCUT SCH ×2 (09:13→18:40)
[2018-12-03] MEDS: INSULIN LISPRO 100 UNIT/ML SUBCUT SCH ×6 (09:13→21:37)
[2018-12-03] MEDS: MORPHINE 4 MG/1 ML VIAL IV PRN ×2 (09:53→22:41)
[2018-12-03] MEDS: CEFTAROLINE 600 MG in SODIUM CHLORIDE 0.9% 100 ML IV SCH (10:00)
[2018-12-03] MEDS ORDERED: VANCOMYCIN INJ 1,000 MG in SODIUM CHLORIDE 0.9% 250 ML IV ONE ×2 (11:15→11:30)
[2018-12-03] MEDS: ONDANSETRON 4 MG/2 ML VIAL IV PRN (13:26)
[2018-12-03] MEDS: SODIUM HYPOCHLORITE 0.25% IRRIG 473 ML BOTTLE TOP SCH (13:29)
[2018-12-03] MEDS: CHLORHEXIDINE 4% SOLN 118 ML BOTTLE TOP SCH (13:29)
[2018-12-03] MEDS: VANCOMYCIN INJ 1,000 MG in SODIUM CHLORIDE 0.9% 250 ML IV SCH ×2 (13:36→21:14)
[2018-12-04] MEDS: VANCOMYCIN INJ 1,000 MG in SODIUM CHLORIDE 0.9% 250 ML IV SCH ×3 (05:22→22:16)
[2018-12-04] MEDS ORDERED: VANCOMYCIN INJ 1,000 MG in SODIUM CHLORIDE 0.9% 250 ML IV ONE (06:00)
[2018-12-04] MEDS: SODIUM CHLORIDE 0.9% 1,000 ML IV SCH (07:30)
[2018-12-04] MEDS: INSULIN NPH 100 UNIT/ML SUBCUT SCH ×2 (07:30→19:00)
[2018-12-04] MEDS: INSULIN LISPRO 100 UNIT/ML SUBCUT SCH ×6 (08:00→21:21)
[2018-12-04] MEDS ORDERED: LIDOCAINE 1% 20 ML VIAL ONE (08:45)
[2018-12-04] MEDS: CHLORHEXIDINE 4% SOLN 118 ML BOTTLE TOP SCH (09:00)
[2018-12-04] MEDS: SODIUM HYPOCHLORITE 0.25% IRRIG 473 ML BOTTLE TOP SCH (09:00)
[2018-12-04] MEDS ORDERED: fentaNYL 100 MCG/2 ML VIAL ONE (09:16)
[2018-12-04] MEDS ORDERED: MIDAZOLAM 2 MG/2 ML VIAL ONE (09:16)
[2018-12-04] MEDS: ONDANSETRON 4 MG/2 ML VIAL IV PRN (13:45)
[2018-12-04] MEDS: PANTOPRAZOLE 40 MG TABLET PO SCH (17:29)
[2018-12-05] MEDS: MORPHINE 4 MG/1 ML VIAL IV PRN (01:47)
[2018-12-05] MEDS: SODIUM CHLORIDE 0.9% 1,000 ML IV SCH (04:53)
[2018-12-05] MEDS: VANCOMYCIN INJ 1,000 MG in SODIUM CHLORIDE 0.9% 250 ML IV SCH (05:03)
[2018-12-05 05:42] LABS: Basophils % 0.5 % (0.0-0.8); Eosinophils # 0.2 10*3/uL (0.0-0.87); Eosinophils % 2.6 % (0.00-10.9); Hemoglobin 9.1 GM/DL (12.0-16.0); Immature Granulocytes % 0.4 %; Immature Granulocytes Absolute 0.03 #; Lymphocytes # 2.6 10*3/uL (1.4-4.0); Lymphocytes % 31.7 % (21.3-54.2); Mean Corpuscular HGB Conc 31.4 GM/DL (32-36); Mean Corpuscular Hemoglobin 26 PG (27-34); Mean Corpuscular Volume 81.7 FL (87-102); Mean Platelet Volume 11.1 FL (9.6-12.0); Monocytes # 0.6 10*3/uL (0.11-0.8); Monocytes % 7.3 % (1.7-12.7); Neutrophils # 4.7 10*3/uL (1.4-7.4); Neutrophils % 57.5 % (38.7-73.9); Platelet Count 304 T/CUMM (130-400); Red Blood Count 3.55 MC/CUMM (3.8-5.5); Red Cell Distribution Width 12.1 % (9.3-17.3); White Blood Count 8.2 T/CUMM (4-12)
[2018-12-05 06:06] LABS: Calcium 7.4 MG/DL (8.5-10.1); Osmolality,Calculated 281.3 MOS/KG (273-304); Potassium 3.8 MMOL/L (3.5-5.1)
[2018-12-05 06:10] LABS: Eosinophils 3 % (0-10); Lymphocytes 38 % (20-55); Platelet Estimate Normal; Segmented Neutrophils 58 % (50-85); Total Cells Counted 100
[2018-12-05 06:11] LABS: Hypochromasia 1+; Microcytosis 1+; Polychromasia Few
[2018-12-05] MEDS: PANTOPRAZOLE 40 MG TABLET PO SCH (10:09)
[2018-12-05] MEDS: INSULIN NPH 100 UNIT/ML SUBCUT SCH ×2 (10:09→15:17)
[2018-12-05] MEDS: INSULIN LISPRO 100 UNIT/ML SUBCUT SCH ×6 (10:10→21:29)
[2018-12-05] MEDS: AMPICILLIN/SULBACTAM 1,500 MG in SODIUM CHLORIDE 0.9% 100 ML IV SCH ×3 (10:14→20:31)
[2018-12-05] MEDS: SODIUM HYPOCHLORITE 0.25% IRRIG 473 ML BOTTLE TOP SCH (11:50)
[2018-12-05] MEDS: CHLORHEXIDINE 4% SOLN 118 ML BOTTLE TOP SCH (11:50)
[2018-12-06] MEDS: AMPICILLIN/SULBACTAM 1,500 MG in SODIUM CHLORIDE 0.9% 100 ML IV SCH ×2 (03:29→08:25)
[2018-12-06] MEDS: INSULIN LISPRO 100 UNIT/ML SUBCUT SCH ×3 (08:24→12:07)
[2018-12-06] MEDS: INSULIN NPH 100 UNIT/ML SUBCUT SCH (08:24)
[2018-12-06] MEDS: PANTOPRAZOLE 40 MG TABLET PO SCH (08:26)
[2018-12-06] MEDS: CHLORHEXIDINE 4% SOLN 118 ML BOTTLE TOP SCH (08:26)
[2018-12-06] MEDS: SODIUM HYPOCHLORITE 0.25% IRRIG 473 ML BOTTLE TOP SCH (08:26)
[2018-12-06 12:02] VITALS: BP 140/94
== END 2018-12-06 13:25 | disposition home health service (06) | DRG 571 ==
LOC: N.ED 20:23 → SUATTDRO 23:09 → N.EDINP 23:09 → N.3E 12-01 00:09
PROVIDERS: ADMIT Internal Medicine; ATTEND Internal Medicine

== ENCOUNTER 2018-12-22 12:52 | Inpatient (IN) ==
[2018-12-22] MEDS ORDERED: INSULIN REGULAR 100 UNIT/ML SUBCUT STA (14:26)
[2018-12-22] MEDS ORDERED: SODIUM CHLORIDE 0.9% 1,000 ML IV STA (14:26)
[2018-12-22 15:05] LABS: Basophils # 0.1 10*3/uL (0.0-0.2); Basophils % 0.4 % (0.0-0.8); Eosinophils # 0.2 10*3/uL (0.0-0.87); Eosinophils % 1.2 % (0.00-10.9); Hematocrit 35.1 VOL% (35.7-47.0); Hemoglobin 11.1 GM/DL (12.0-16.0); Immature Granulocytes % 0.8 %; Immature Granulocytes Absolute 0.11 #; Lymphocytes # 2.1 10*3/uL (1.4-4.0); Lymphocytes % 14.5 % (21.3-54.2); Mean Corpuscular HGB Conc 31.6 GM/DL (32-36); Mean Corpuscular Hemoglobin 26 PG (27-34); Mean Corpuscular Volume 80.7 FL (87-102); Mean Platelet Volume 11.1 FL (9.6-12.0); Monocytes # 0.9 10*3/uL (0.11-0.8); Monocytes % 6.5 % (1.7-12.7); Neutrophils % 76.6 % (38.7-73.9); Platelet Count 316 T/CUMM (130-400); Red Blood Count 4.35 MC/CUMM (3.8-5.5); Red Cell Distribution Width 11.9 % (9.3-17.3); White Blood Count 14.4 T/CUMM (4-12)
[2018-12-22 15:26] LABS: Alanine Aminotransferase 11 U/L (13-56); Albumin 2.1 G/DL (3.4-5.0); Alkaline Phosphatase 282 U/L (45-117); Aspartate Amino Transferase 8 U/L (0-37); Bilirubin,Total < 0.39 MG/DL (0.2-1.0); Blood Urea Nitrogen 10 MG/DL (7-18); Calcium 8.8 MG/DL (8.5-10.1); Osmolality,Calculated 283.9 MOS/KG (273-304); Potassium 4.1 MMOL/L (3.5-5.1); Sodium 129 MMOL/L (136-145); Total Protein 8.8 G/DL (6.4-8.3)
[2018-12-22 15:27] LABS: Glucose 586 MG/DL (74-106)
[2018-12-22 15:41] LABS: Apearance,Urine CLEAR (Clear); Bilirubin,Urine Negative (Negative); Blood, Urine Moderate mg/dL (Negative); Glucose,Urine (UA) >=500 mg/dL (Negative); Ketones,Urine 20 mg/dL (Negative); Nitrite,Urine Negative (Negative); Protein,Urine 100 MG/DL; RBC,Urine 5 /HPF (0-4); Squamous Epithelial Cell,Urine Occasional /HPF (0-10); Urine Color Yellow (Yellow); Urine Specific Gravity 1.033 (1.001-1.035); Urine Urobilinogen < 2.0 EU/DL (0.2-1.0); WBC,Urine 3 /HPF (0-6)
[2018-12-22] MEDS ORDERED: VANCOMYCIN INJ 1,000 MG in SODIUM CHLORIDE 0.9% 250 ML IV ONE ×2 (15:41→16:00)
[2018-12-22] MEDS ORDERED: ACETAMINOPHEN 325 MG TABLET PO PRN (15:56)
[2018-12-22] MEDS ORDERED: LACTULOSE 20 GM/30 ML UDCUP PO PRN (15:56)
[2018-12-22] MEDS ORDERED: DEXTROSE 50% 25 GM/50 ML SYRINGE IV PRN (15:56)
[2018-12-22] MEDS ORDERED: GLUCAGON 1 MG VIAL IM PRN (15:56)
[2018-12-22] MEDS: SODIUM CHLORIDE 0.9% 1,000 ML IV SCH (16:30)
[2018-12-22] MEDS ORDERED: cefTRIAXone 1,000 MG in SYRINGE 1 EACH IV SCH (18:00)
[2018-12-22] MEDS: INSULIN LISPRO 100 UNIT/ML SUBCUT SCH ×2 (18:28→20:49)
[2018-12-22] MEDS ORDERED: INSULIN GLARGINE 100 UNIT/ML SUBCUT SCH (19:00)
[2018-12-22] MEDS ORDERED: VANCOMYCIN INJ 1,000 MG in SODIUM CHLORIDE 0.9% 250 ML IV SCH (19:00)
[2018-12-22] MEDS ORDERED: INSULIN NPH 100 UNIT/ML SUBCUT SCH (21:00)
[2018-12-23] MEDS: SODIUM CHLORIDE 0.9% 1,000 ML IV SCH ×3 (03:25→22:00)
[2018-12-23 05:12] LABS: Basophils # 0.1 10*3/uL (0.0-0.2); Basophils % 0.4 % (0.0-0.8); Eosinophils # 0.2 10*3/uL (0.0-0.87); Eosinophils % 1.8 % (0.00-10.9); Hemoglobin 9.5 GM/DL (12.0-16.0); Immature Granulocytes % 0.6 %; Immature Granulocytes Absolute 0.08 #; Lymphocytes # 1.7 10*3/uL (1.4-4.0); Lymphocytes % 12.4 % (21.3-54.2); Mean Corpuscular HGB Conc 31.7 GM/DL (32-36); Mean Corpuscular Hemoglobin 25 PG (27-34); Mean Platelet Volume 11.2 FL (9.6-12.0); Monocytes # 1.1 10*3/uL (0.11-0.8); Monocytes % 7.9 % (1.7-12.7); Neutrophils # 10.3 10*3/uL (1.4-7.4); Neutrophils % 76.9 % (38.7-73.9); Platelet Count 275 T/CUMM (130-400); Red Blood Count 3.75 MC/CUMM (3.8-5.5); Red Cell Distribution Width 12.2 % (9.3-17.3); White Blood Count 13.4 T/CUMM (4-12)
[2018-12-23 05:38] LABS: Albumin 1.6 G/DL (3.4-5.0); Bilirubin,Total 0.6 MG/DL (0.2-1.0); Calcium 7.8 MG/DL (8.5-10.1); Potassium 3.8 MMOL/L (3.5-5.1); Total Protein 7.1 G/DL (6.4-8.3)
[2018-12-23] MEDS ORDERED: LIDOCAINE 1% 20 ML VIAL ONE (06:59)
[2018-12-23] MEDS ORDERED: INSULIN REGULAR 100 UNIT/ML SUBCUT SCH (07:30)
[2018-12-23] MEDS ORDERED: PROPOFOL 200 MG/20 ML VIAL IV ONE (08:14)
[2018-12-23] MEDS ORDERED: ONDANSETRON 4 MG/2 ML VIAL ONE (08:15)
[2018-12-23] MEDS ORDERED: SCOPOLAMINE 1.5 MG PATCH TRANSDERM ONE (08:15)
[2018-12-23] MEDS ORDERED: MIDAZOLAM 2 MG/2 ML VIAL ONE (08:15)
[2018-12-23] MEDS ORDERED: SEVOFLURANE 1 UNIT/15 MINUTE INH ONE (08:15)
[2018-12-23] MEDS ORDERED: PHENYLEPHRINE 1 MG/10 ML SYRINGE IV ONE (08:15)
[2018-12-23] MEDS ORDERED: fentaNYL 100 MCG/2 ML VIAL ONE (08:15)
[2018-12-23] MEDS: INSULIN NPH 100 UNIT/ML SUBCUT SCH ×3 (08:34→17:07)
[2018-12-23] MEDS: INSULIN LISPRO 100 UNIT/ML SUBCUT SCH ×5 (08:34→21:29)
[2018-12-23] MEDS ORDERED: INSULIN GLARGINE 100 UNIT/ML SUBCUT SCH ×3 (09:00→21:00)
[2018-12-23] MEDS ORDERED: MAGNESIUM SULF RIDER 4 GM in PREMIX 1 EACH IV ONE (10:00)
[2018-12-23] MEDS: PIPERACILLIN/TAZOBACTAM 3,375 MG in SODIUM CHLORIDE 0.9% 100 ML IV SCH ×2 (10:20→21:30)
[2018-12-23] MEDS: HYDROmorphone 2 MG/1 ML VIAL IV PRN ×2 (10:28→21:28)
[2018-12-23] MEDS: ONDANSETRON 4 MG/2 ML VIAL IV PRN (10:28)
[2018-12-23] MEDS: VANCOMYCIN INJ 1,000 MG in SODIUM CHLORIDE 0.9% 250 ML IV SCH (14:52)
[2018-12-23] MEDS: LEVOFLOXACIN INJ 750 MG in PREMIX 1 EACH IV SCH (16:51)
[2018-12-23] MEDS: ASCORBIC ACID 500 MG TABLET PO SCH (21:29)
[2018-12-24] MEDS: VANCOMYCIN INJ 1,000 MG in SODIUM CHLORIDE 0.9% 250 ML IV SCH ×2 (01:25→15:52)
[2018-12-24 04:34] LABS: Basophils % 0.3 % (0.0-0.8); Eosinophils # 0.3 10*3/uL (0.0-0.87); Eosinophils % 2.7 % (0.00-10.9); Hematocrit 26.6 VOL% (35.7-47.0); Hemoglobin 7.9 GM/DL (12.0-16.0); Immature Granulocytes % 0.8 %; Immature Granulocytes Absolute 0.09 #; Lymphocytes # 2.2 10*3/uL (1.4-4.0); Lymphocytes % 18.5 % (21.3-54.2); Mean Corpuscular HGB Conc 29.7 GM/DL (32-36); Mean Corpuscular Hemoglobin 25 PG (27-34); Mean Corpuscular Volume 82.6 FL (87-102); Mean Platelet Volume 11.3 FL (9.6-12.0); Monocytes # 0.8 10*3/uL (0.11-0.8); Neutrophils # 8.3 10*3/uL (1.4-7.4); Neutrophils % 70.7 % (38.7-73.9); Platelet Count 237 T/CUMM (130-400); Red Blood Count 3.22 MC/CUMM (3.8-5.5); Red Cell Distribution Width 12.2 % (9.3-17.3); White Blood Count 11.8 T/CUMM (4-12)
[2018-12-24] MEDS: PIPERACILLIN/TAZOBACTAM 3,375 MG in SODIUM CHLORIDE 0.9% 100 ML IV SCH ×3 (04:43→20:20)
[2018-12-24 04:55] LABS: Alanine Aminotransferase < 9 U/L (13-56); Albumin 1.4 G/DL (3.4-5.0); Alkaline Phosphatase 170 U/L (45-117); Aspartate Amino Transferase 11 U/L (0-37); Bilirubin,Total < 0.39 MG/DL (0.2-1.0); Blood Urea Nitrogen 6 MG/DL (7-18); Calcium 7.2 MG/DL (8.5-10.1); Glucose 149 MG/DL (74-106); Osmolality,Calculated 273.8 MOS/KG (273-304); Potassium 3.6 MMOL/L (3.5-5.1); Sodium 137 MMOL/L (136-145); Total Protein 6.3 G/DL (6.4-8.3)
[2018-12-24] MEDS ORDERED: SODIUM CHLORIDE 0.9% 1,000 ML IV PRN (07:26)
[2018-12-24] MEDS: ONDANSETRON 4 MG/2 ML VIAL IV PRN ×2 (08:02→15:32)
[2018-12-24] MEDS: INSULIN NPH 100 UNIT/ML SUBCUT SCH ×2 (08:25→17:57)
[2018-12-24] MEDS: HYDROmorphone 2 MG/1 ML VIAL IV PRN ×2 (08:25→15:32)
[2018-12-24] MEDS: ZINC SULFATE 220 MG CAPSULE PO SCH (08:26)
[2018-12-24] MEDS: ASCORBIC ACID 500 MG TABLET PO SCH ×2 (08:27→20:21)
[2018-12-24] MEDS: MULTIVITAMIN (BEROCCA) TABLET PO SCH (08:27)
[2018-12-24] MEDS: INSULIN LISPRO 100 UNIT/ML SUBCUT SCH ×7 (08:34→21:18)
[2018-12-24] MEDS ORDERED: ACETAMINOPHEN 325 MG TABLET PO ONE (09:00)
[2018-12-24] MEDS ORDERED: diphenhydrAMINE CAP 25 MG CAPSULE PO ONE (09:00)
[2018-12-24] MEDS ORDERED: ONDANSETRON 4 MG/2 ML VIAL IV ONE (10:00)
[2018-12-24] MEDS: PROMETHAZINE 25 MG/1 ML VIAL IM PRN ×2 (11:36→16:47)
[2018-12-24] MEDS: SODIUM HYPOCHLORITE 0.25% IRRIG 473 ML BOTTLE TOP SCH (11:53)
[2018-12-24] MEDS: SODIUM CHLORIDE 0.9% 1,000 ML IV SCH (12:32)
[2018-12-24] MEDS ORDERED: FUROSEMIDE 20 MG/2 ML VIAL IV ONE (13:00)
[2018-12-24] MEDS: VANCOMYCIN INJ 1,250 MG in SODIUM CHLORIDE 0.9% 250 ML IV SCH (17:24)
[2018-12-24] MEDS: LEVOFLOXACIN INJ 750 MG in PREMIX 1 EACH IV SCH (20:20)
[2018-12-25] MEDS: ONDANSETRON 4 MG/2 ML VIAL IV PRN ×3 (01:02→18:18)
[2018-12-25] MEDS: HYDROmorphone 2 MG/1 ML VIAL IV PRN ×4 (01:03→18:15)
[2018-12-25] MEDS: VANCOMYCIN INJ 1,250 MG in SODIUM CHLORIDE 0.9% 250 ML IV SCH ×2 (02:54→14:56)
[2018-12-25] MEDS: PROMETHAZINE 25 MG/1 ML VIAL IM PRN ×2 (03:59→20:58)
[2018-12-25] MEDS: PIPERACILLIN/TAZOBACTAM 3,375 MG in SODIUM CHLORIDE 0.9% 100 ML IV SCH ×3 (04:01→20:58)
[2018-12-25 05:30] LABS: Calcium 7.6 MG/DL (8.5-10.1); Osmolality,Calculated 285.1 MOS/KG (273-304); Potassium 3.5 MMOL/L (3.5-5.1)
[2018-12-25 07:33] LABS: Basophils % 0.4 % (0.0-0.8); Eosinophils # 0.3 10*3/uL (0.0-0.87); Eosinophils % 2.6 % (0.00-10.9); Hematocrit 33.6 VOL% (35.7-47.0); Hemoglobin 10.4 GM/DL (12.0-16.0); Immature Granulocytes % 0.3 %; Immature Granulocytes Absolute 0.03 #; Lymphocytes # 2.1 10*3/uL (1.4-4.0); Lymphocytes % 19.2 % (21.3-54.2); Mean Corpuscular Hemoglobin 25 PG (27-34); Mean Platelet Volume 11.6 FL (9.6-12.0); Monocytes # 0.9 10*3/uL (0.11-0.8); Monocytes % 7.7 % (1.7-12.7); Neutrophils # 7.8 10*3/uL (1.4-7.4); Neutrophils % 69.8 % (38.7-73.9); Platelet Count 280 T/CUMM (130-400); Red Cell Distribution Width 13.6 % (9.3-17.3); White Blood Count 11.1 T/CUMM (4-12)
[2018-12-25] MEDS: MULTIVITAMIN (BEROCCA) TABLET PO SCH (08:57)
[2018-12-25] MEDS: ASCORBIC ACID 500 MG TABLET PO SCH ×2 (08:57→20:59)
[2018-12-25] MEDS: ZINC SULFATE 220 MG CAPSULE PO SCH (08:57)
[2018-12-25] MEDS: INSULIN NPH 100 UNIT/ML SUBCUT SCH ×2 (08:59→16:41)
[2018-12-25] MEDS: INSULIN LISPRO 100 UNIT/ML SUBCUT SCH ×7 (09:00→22:38)
[2018-12-25] MEDS: SODIUM CHLORIDE 0.9% 1,000 ML IV SCH ×3 (09:34→20:33)
[2018-12-25] MEDS: SODIUM HYPOCHLORITE 0.25% IRRIG 473 ML BOTTLE TOP SCH (09:53)
[2018-12-25] MEDS: LEVOFLOXACIN INJ 750 MG in PREMIX 1 EACH IV SCH (16:42)
[2018-12-26] MEDS: ONDANSETRON 4 MG/2 ML VIAL IV PRN ×3 (01:10→23:50)
[2018-12-26] MEDS: VANCOMYCIN INJ 1,250 MG in SODIUM CHLORIDE 0.9% 250 ML IV SCH ×2 (02:40→16:00)
[2018-12-26] MEDS: PIPERACILLIN/TAZOBACTAM 3,375 MG in SODIUM CHLORIDE 0.9% 100 ML IV SCH ×3 (05:18→21:36)
[2018-12-26 08:05] LABS: Basophils % 0.3 % (0.0-0.8); Eosinophils # 0.2 10*3/uL (0.0-0.87); Eosinophils % 2.3 % (0.00-10.9); Hematocrit 33.2 VOL% (35.7-47.0); Hemoglobin 10.4 GM/DL (12.0-16.0); Immature Granulocytes % 0.4 %; Immature Granulocytes Absolute 0.04 #; Lymphocytes # 1.6 10*3/uL (1.4-4.0); Lymphocytes % 15.8 % (21.3-54.2); Mean Corpuscular HGB Conc 31.3 GM/DL (32-36); Mean Corpuscular Hemoglobin 26 PG (27-34); Mean Corpuscular Volume 82.2 FL (87-102); Mean Platelet Volume 10.9 FL (9.6-12.0); Monocytes # 0.7 10*3/uL (0.11-0.8); Neutrophils # 7.7 10*3/uL (1.4-7.4); Neutrophils % 74.2 % (38.7-73.9); Platelet Count 316 T/CUMM (130-400); Red Blood Count 4.04 MC/CUMM (3.8-5.5); Red Cell Distribution Width 13.5 % (9.3-17.3); White Blood Count 10.4 T/CUMM (4-12)
[2018-12-26 08:11] LABS: Albumin 1.5 G/DL (3.4-5.0); Bilirubin,Total 0.4 MG/DL (0.2-1.0); Calcium 7.9 MG/DL (8.5-10.1); Osmolality,Calculated 281.1 MOS/KG (273-304); Potassium 3.4 MMOL/L (3.5-5.1); Total Protein 7.1 G/DL (6.4-8.3)
[2018-12-26] MEDS: INSULIN LISPRO 100 UNIT/ML SUBCUT SCH ×7 (08:31→21:21)
[2018-12-26] MEDS: MULTIVITAMIN (BEROCCA) TABLET PO SCH (08:34)
[2018-12-26] MEDS: ASCORBIC ACID 500 MG TABLET PO SCH ×2 (08:34→21:36)
[2018-12-26] MEDS: ZINC SULFATE 220 MG CAPSULE PO SCH (08:34)
[2018-12-26] MEDS: INSULIN NPH 100 UNIT/ML SUBCUT SCH ×2 (08:35→16:27)
[2018-12-26] MEDS: HYDROmorphone 2 MG/1 ML VIAL IV PRN ×3 (08:36→23:49)
[2018-12-26] MEDS: PROMETHAZINE 25 MG/1 ML VIAL IM PRN ×2 (10:07→17:42)
[2018-12-26] MEDS: SODIUM HYPOCHLORITE 0.25% IRRIG 473 ML BOTTLE TOP SCH (10:09)
[2018-12-26] MEDS: SODIUM CHLORIDE 0.9% 1,000 ML IV SCH ×2 (11:59→21:41)
[2018-12-26] MEDS: LEVOFLOXACIN INJ 750 MG in PREMIX 1 EACH IV SCH (16:27)
[2018-12-27] MEDS: VANCOMYCIN INJ 1,250 MG in SODIUM CHLORIDE 0.9% 250 ML IV SCH ×2 (02:55→16:45)
[2018-12-27] MEDS: PIPERACILLIN/TAZOBACTAM 3,375 MG in SODIUM CHLORIDE 0.9% 100 ML IV SCH (05:50)
[2018-12-27] MEDS: ONDANSETRON 4 MG/2 ML VIAL IV PRN ×2 (05:50→18:37)
[2018-12-27] MEDS: INSULIN LISPRO 100 UNIT/ML SUBCUT SCH ×7 (07:30→20:58)
[2018-12-27] MEDS: SODIUM CHLORIDE 0.9% 1,000 ML IV SCH ×2 (07:30→10:33)
[2018-12-27] MEDS: SODIUM HYPOCHLORITE 0.25% IRRIG 473 ML BOTTLE TOP SCH (08:30)
[2018-12-27] MEDS: MULTIVITAMIN (BEROCCA) TABLET PO SCH (10:36)
[2018-12-27] MEDS: ASCORBIC ACID 500 MG TABLET PO SCH ×2 (10:37→20:52)
[2018-12-27] MEDS: ZINC SULFATE 220 MG CAPSULE PO SCH (10:37)
[2018-12-27] MEDS: INSULIN NPH 100 UNIT/ML SUBCUT SCH ×2 (10:42→17:32)
[2018-12-27 11:44] LABS: Basophils # 0.1 10*3/uL (0.0-0.2); Basophils % 0.6 % (0.0-0.8); Eosinophils # 0.2 10*3/uL (0.0-0.87); Eosinophils % 2.1 % (0.00-10.9); Hematocrit 36.9 VOL% (35.7-47.0); Hemoglobin 11.2 GM/DL (12.0-16.0); Immature Granulocytes % 0.6 %; Immature Granulocytes Absolute 0.06 #; Lymphocytes # 1.5 10*3/uL (1.4-4.0); Mean Corpuscular HGB Conc 30.4 GM/DL (32-36); Mean Corpuscular Hemoglobin 25 PG (27-34); Mean Corpuscular Volume 82.4 FL (87-102); Mean Platelet Volume 9.9 FL (9.6-12.0); Monocytes # 0.7 10*3/uL (0.11-0.8); Monocytes % 6.4 % (1.7-12.7); Neutrophils % 76.3 % (38.7-73.9); Platelet Count 365 T/CUMM (130-400); Red Blood Count 4.48 MC/CUMM (3.8-5.5); Red Cell Distribution Width 13.4 % (9.3-17.3); White Blood Count 10.5 T/CUMM (4-12)
[2018-12-27 12:07] LABS: Alanine Aminotransferase 15 U/L (13-56); Albumin 1.6 G/DL (3.4-5.0); Alkaline Phosphatase 366 U/L (45-117); Aspartate Amino Transferase 23 U/L (0-37); Bilirubin,Total < 0.39 MG/DL (0.2-1.0); Blood Urea Nitrogen 7 MG/DL (7-18); Calcium 8.4 MG/DL (8.5-10.1); Glucose 159 MG/DL (74-106); Osmolality,Calculated 281.3 MOS/KG (273-304); Potassium 3.7 MMOL/L (3.5-5.1); Sodium 141 MMOL/L (136-145); Total Protein 7.5 G/DL (6.4-8.3)
[2018-12-27] MEDS ORDERED: LIDOCAINE 1% 20 ML VIAL ONE (13:41)
[2018-12-27] MEDS ORDERED: SCOPOLAMINE 1.5 MG PATCH TRANSDERM ONE ×2 (14:19→14:21)
[2018-12-27] MEDS ORDERED: ONDANSETRON 4 MG/2 ML VIAL IV PRN (15:23)
[2018-12-27] MEDS ORDERED: MEPERIDINE 25 MG/1 ML VIAL IV PRN (15:23)
[2018-12-27] MEDS ORDERED: PROMETHAZINE INJ 25 MG in SODIUM CHLORIDE 0.9% 50 ML IV PRN (15:23)
[2018-12-27] MEDS ORDERED: HYDROmorphone 2 MG/1 ML VIAL IV PRN (15:23)
[2018-12-27] MEDS ORDERED: diphenhydrAMINE 50 MG/1 ML VIAL IV PRN (15:23)
[2018-12-27] MEDS ORDERED: PROPOFOL 200 MG/20 ML VIAL IV ONE (15:25)
[2018-12-27] MEDS ORDERED: MIDAZOLAM 2 MG/2 ML VIAL ONE (15:25)
[2018-12-27] MEDS ORDERED: fentaNYL 100 MCG/2 ML VIAL ONE (15:26)
[2018-12-27] MEDS: LEVOFLOXACIN 750 MG TABLET PO SCH (16:45)
[2018-12-28] MEDS: VANCOMYCIN INJ 1,250 MG in SODIUM CHLORIDE 0.9% 250 ML IV SCH (03:06)
[2018-12-28] MEDS: ONDANSETRON 4 MG/2 ML VIAL IV PRN ×3 (03:12→17:46)
[2018-12-28] MEDS: SODIUM CHLORIDE 0.9% 1,000 ML IV SCH ×3 (03:16→21:09)
[2018-12-28 07:10] LABS: Basophils % 0.4 % (0.0-0.8); Eosinophils # 0.3 10*3/uL (0.0-0.87); Eosinophils % 2.6 % (0.00-10.9); Hematocrit 33.3 VOL% (35.7-47.0); Hemoglobin 10.2 GM/DL (12.0-16.0); Immature Granulocytes % 0.4 %; Immature Granulocytes Absolute 0.05 #; Lymphocytes # 1.8 10*3/uL (1.4-4.0); Lymphocytes % 16.1 % (21.3-54.2); Mean Corpuscular HGB Conc 30.6 GM/DL (32-36); Mean Corpuscular Hemoglobin 25 PG (27-34); Mean Corpuscular Volume 82.4 FL (87-102); Monocytes # 0.8 10*3/uL (0.11-0.8); Monocytes % 6.7 % (1.7-12.7); Neutrophils # 8.4 10*3/uL (1.4-7.4); Neutrophils % 73.8 % (38.7-73.9); Platelet Count 355 T/CUMM (130-400); Red Blood Count 4.04 MC/CUMM (3.8-5.5); Red Cell Distribution Width 13.4 % (9.3-17.3); White Blood Count 11.4 T/CUMM (4-12)
[2018-12-28 07:24] LABS: Alanine Aminotransferase 14 U/L (13-56); Albumin 1.7 G/DL (3.4-5.0); Alkaline Phosphatase 337 U/L (45-117); Aspartate Amino Transferase 21 U/L (0-37); Bilirubin,Total < 0.39 MG/DL (0.2-1.0); Blood Urea Nitrogen 8 MG/DL (7-18); Calcium 7.8 MG/DL (8.5-10.1); Glucose 121 MG/DL (74-106); Osmolality,Calculated 279.3 MOS/KG (273-304); Potassium 3.2 MMOL/L (3.5-5.1); Sodium 141 MMOL/L (136-145); Total Protein 7.2 G/DL (6.4-8.3)
[2018-12-28] MEDS: MULTIVITAMIN (BEROCCA) TABLET PO SCH (08:22)
[2018-12-28] MEDS: ZINC SULFATE 220 MG CAPSULE PO SCH (08:22)
[2018-12-28] MEDS: LEVOFLOXACIN 750 MG TABLET PO SCH (08:23)
[2018-12-28] MEDS: ASCORBIC ACID 500 MG TABLET PO SCH ×2 (08:23→21:05)
[2018-12-28] MEDS: INSULIN LISPRO 100 UNIT/ML SUBCUT SCH ×7 (08:24→21:09)
[2018-12-28] MEDS: INSULIN NPH 100 UNIT/ML SUBCUT SCH ×3 (08:25→21:06)
[2018-12-28] MEDS: SODIUM HYPOCHLORITE 0.25% IRRIG 473 ML BOTTLE TOP SCH (08:30)
[2018-12-29] MEDS: ONDANSETRON 4 MG/2 ML VIAL IV PRN ×2 (04:45→08:36)
[2018-12-29] MEDS: SODIUM CHLORIDE 0.9% 1,000 ML IV SCH (04:50)
[2018-12-29] MEDS: INSULIN LISPRO 100 UNIT/ML SUBCUT SCH ×4 (08:15→12:06)
[2018-12-29] MEDS: HYDROmorphone 2 MG/1 ML VIAL IV PRN (08:36)
[2018-12-29] MEDS: ZINC SULFATE 220 MG CAPSULE PO SCH (08:37)
[2018-12-29] MEDS: ASCORBIC ACID 500 MG TABLET PO SCH (08:37)
[2018-12-29] MEDS: MULTIVITAMIN (BEROCCA) TABLET PO SCH (08:37)
[2018-12-29] MEDS: INSULIN NPH 100 UNIT/ML SUBCUT SCH (08:37)
[2018-12-29] MEDS: LEVOFLOXACIN 750 MG TABLET PO SCH (08:37)
[2018-12-29] MEDS: SODIUM HYPOCHLORITE 0.25% IRRIG 473 ML BOTTLE TOP SCH (08:38)
[2018-12-29 12:12] VITALS: BP 140/96
[2018-12-29] MEDS ORDERED: CLINDAMYCIN 300 MG CAPSULE PO SCH (14:00)
[2018-12-29] MEDS ORDERED: ENOXAPARIN 40 MG/0.4 ML SYRINGE SUBCUT SCH (21:00)
== END 2018-12-29 16:30 | disposition home or self-care (01) | DRG 240 ==
LOC: N.ED 12:52 → SUATTDRO 15:56 → N.EDINP 15:56 → N.2E 17:03
PROVIDERS: ADMIT Internal Medicine; ATTEND Internal Medicine

== ENCOUNTER 2019-02-03 09:23 | Inpatient (IN) ==
[2019-02-03] MEDS ORDERED: ONDANSETRON 4 MG/2 ML VIAL IV STA (09:52)
[2019-02-03] MEDS ORDERED: SODIUM CHLORIDE 0.9% 2,000 ML IV STA (09:52)
[2019-02-03 10:34] LABS: Basophils # 0.1 10*3/uL (0.0-0.2); Basophils % 0.9 % (0.0-0.8); Eosinophils # 0.1 10*3/uL (0.0-0.87); Eosinophils % 1.6 % (0.00-10.9); Hematocrit 40.5 VOL% (35.7-47.0); Hemoglobin 12.6 GM/DL (12.0-16.0); Immature Granulocytes % 0.3 %; Immature Granulocytes Absolute 0.02 #; Lymphocytes # 1.8 10*3/uL (1.4-4.0); Lymphocytes % 28.5 % (21.3-54.2); Mean Corpuscular HGB Conc 31.1 GM/DL (32-36); Mean Corpuscular Volume 78.9 FL (87-102); Mean Platelet Volume 12.6 FL (9.6-12.0); Monocytes % 5.6 % (1.7-12.7); Neutrophils % 63.1 % (38.7-73.9); Platelet Count 258 T/CUMM (130-400); Red Blood Count 5.13 MC/CUMM (3.8-5.5); Red Cell Distribution Width 13.3 % (9.3-17.3); White Blood Count 6.4 T/CUMM (4-12)
[2019-02-03 10:45] LABS: Pt O2 Delivery Device Room Air
[2019-02-03 10:46] LABS: ABG Base Excess 1.3 MMOL/L (-2.5-2.5); ABG HCO3 25.6 MMOL/L (20-26); ABG Oxygen Saturation 98.4 % (95-100); ABG PCO2 41.4 MM HG (35-48); ABG PH 7.408 (7.35-7.45); ABG TCO2 23.2 MMOL/L (23-27)
[2019-02-03 10:54] LABS: Calcium 9.3 MG/DL (8.5-10.1); Osmolality,Calculated 289.9 MOS/KG (273-304)
[2019-02-03] MEDS ORDERED: INSULIN REGULAR 100 UNIT/ML IV ONE (10:58)
[2019-02-03 11:29] LABS: Apearance,Urine CLEAR (Clear); Bilirubin,Urine Negative (Negative); Blood, Urine Moderate mg/dL (Negative); Glucose,Urine (UA) >=500 mg/dL (Negative); Ketones,Urine 5 mg/dL (Negative); Nitrite,Urine Negative (Negative); Protein,Urine 30 MG/DL; RBC,Urine 5 /HPF (0-4); Urine Color Straw (Yellow); Urine Specific Gravity 1.022 (1.001-1.035); Urine Urobilinogen < 2.0 EU/DL (0.2-1.0); WBC,Urine <1 /HPF (0-6)
[2019-02-03] MEDS ORDERED: ACETAMINOPHEN 500 MG TABLET PO STA ×2 (11:58→12:25)
[2019-02-03] MEDS ORDERED: GLUCAGON 1 MG VIAL IM PRN (15:07)
[2019-02-03] MEDS ORDERED: ACETAMINOPHEN 325 MG TABLET PO PRN (15:07)
[2019-02-03] MEDS ORDERED: DEXTROSE 50% 25 GM/50 ML VIAL IV PRN (15:07)
[2019-02-03] MEDS: SODIUM CHLORIDE 0.9% 1,000 ML IV SCH (17:16)
[2019-02-03] MEDS: INSULIN REGULAR 100 UNIT/ML SUBCUT SCH (17:16)
[2019-02-03] MEDS: ONDANSETRON 4 MG/2 ML VIAL IV PRN (18:15)
[2019-02-03] MEDS: MORPHINE 4 MG/1 ML VIAL IV PRN (18:15)
[2019-02-03] MEDS: PIPERACILLIN/TAZOBACTAM 3,375 MG in SODIUM CHLORIDE 0.9% 100 ML IV SCH (18:15)
[2019-02-03] MEDS: INSULIN LISPRO 100 UNIT/ML SUBCUT SCH (20:55)
[2019-02-03] MEDS: INSULIN NPH 100 UNIT/ML SUBCUT SCH (20:58)
[2019-02-03] MEDS ORDERED: VANCOMYCIN INJ 1,000 MG in SODIUM CHLORIDE 0.9% 250 ML IV SCH (22:00)
[2019-02-04] MEDS: INSULIN LISPRO 100 UNIT/ML SUBCUT SCH ×7 (00:37→23:48)
[2019-02-04] MEDS: PIPERACILLIN/TAZOBACTAM 3,375 MG in SODIUM CHLORIDE 0.9% 100 ML IV SCH (02:53)
[2019-02-04] MEDS: ONDANSETRON 4 MG/2 ML VIAL IV PRN ×4 (05:04→21:58)
[2019-02-04] MEDS: MORPHINE 4 MG/1 ML VIAL IV PRN ×4 (05:06→21:59)
[2019-02-04 05:55] LABS: Basophils # 0.1 10*3/uL (0.0-0.2); Basophils % 0.9 % (0.0-0.8); Eosinophils # 0.2 10*3/uL (0.0-0.87); Eosinophils % 1.9 % (0.00-10.9); Hematocrit 34.5 VOL% (35.7-47.0); Hemoglobin 10.8 GM/DL (12.0-16.0); Immature Granulocytes % 0.1 %; Immature Granulocytes Absolute 0.01 #; Lymphocytes # 3.1 10*3/uL (1.4-4.0); Lymphocytes % 38.9 % (21.3-54.2); Mean Corpuscular HGB Conc 31.3 GM/DL (32-36); Mean Corpuscular Volume 79.9 FL (87-102); Monocytes % 7.9 % (1.7-12.7); Neutrophils % 50.3 % (38.7-73.9); Platelet Count 250 T/CUMM (130-400); Red Blood Count 4.32 MC/CUMM (3.8-5.5); Red Cell Distribution Width 13.3 % (9.3-17.3); White Blood Count 7.9 T/CUMM (4-12)
[2019-02-04 06:15] LABS: Albumin 2.3 G/DL (3.4-5.0); Bilirubin,Total 0.5 MG/DL (0.2-1.0); Calcium 8.4 MG/DL (8.5-10.1); Osmolality,Calculated 276.8 MOS/KG (273-304); Risk Ratio 4.9; Total Protein 7.2 G/DL (6.4-8.3)
[2019-02-04] MEDS ORDERED: DEXTROSE 50% 25 GM/50 ML VIAL IV PRN (08:23)
[2019-02-04] MEDS ORDERED: GLUCAGON 1 MG VIAL IM PRN (08:23)
[2019-02-04] MEDS: SODIUM CHLORIDE 0.9% 1,000 ML IV SCH ×4 (10:23→23:54)
[2019-02-04] MEDS: INSULIN NPH 100 UNIT/ML SUBCUT SCH ×2 (10:25→21:16)
[2019-02-04] MEDS: INSULIN REGULAR 100 UNIT/ML SUBCUT SCH ×2 (10:25→16:28)
[2019-02-04] MEDS: PANTOPRAZOLE 40 MG VIAL IV SCH (10:26)
[2019-02-05] MEDS: ONDANSETRON 4 MG/2 ML VIAL IV PRN ×5 (03:22→23:27)
[2019-02-05] MEDS: MORPHINE 4 MG/1 ML VIAL IV PRN ×4 (03:35→23:28)
[2019-02-05 05:32] LABS: Basophils # 0.1 10*3/uL (0.0-0.2); Basophils % 0.8 % (0.0-0.8); Eosinophils # 0.1 10*3/uL (0.0-0.87); Hematocrit 33.7 VOL% (35.7-47.0); Hemoglobin 10.3 GM/DL (12.0-16.0); Immature Granulocytes % 0.3 %; Immature Granulocytes Absolute 0.02 #; Lymphocytes # 2.6 10*3/uL (1.4-4.0); Lymphocytes % 36.7 % (21.3-54.2); Mean Corpuscular HGB Conc 30.6 GM/DL (32-36); Mean Corpuscular Volume 80.8 FL (87-102); Mean Platelet Volume 12.5 FL (9.6-12.0); Monocytes % 6.5 % (1.7-12.7); Neutrophils % 53.7 % (38.7-73.9); Platelet Count 198 T/CUMM (130-400); Red Blood Count 4.17 MC/CUMM (3.8-5.5); Red Cell Distribution Width 13.5 % (9.3-17.3); White Blood Count 7.1 T/CUMM (4-12)
[2019-02-05] MEDS ORDERED: MINERAL OIL (TOPICAL) 25 ML BOTTLE TOP ONE (06:35)
[2019-02-05] MEDS ORDERED: LIDOCAINE 1%/EPI INJ 20 ML VIAL ONE ×2 (06:35→06:36)
[2019-02-05] MEDS ORDERED: BACITRACIN OINT 0.9 GM PACK TOP ONE (06:35)
[2019-02-05] MEDS ORDERED: ceFAZolin 1,000 MG in SYRINGE 1 EACH IV ONE (07:00)
[2019-02-05] MEDS ORDERED: ONDANSETRON 4 MG/2 ML VIAL ONE ×2 (07:13→08:23)
[2019-02-05] MEDS ORDERED: METOCLOPRAMIDE 10 MG/2 ML VIAL ONE (07:15)
[2019-02-05] MEDS ORDERED: HYDROmorphone 2 MG/1 ML VIAL IV PRN (07:18)
[2019-02-05] MEDS ORDERED: diphenhydrAMINE 50 MG/1 ML VIAL IV PRN (07:18)
[2019-02-05] MEDS ORDERED: MEPERIDINE 25 MG/1 ML VIAL IV PRN (07:18)
[2019-02-05] MEDS ORDERED: PROMETHAZINE INJ 25 MG in SODIUM CHLORIDE 0.9% 50 ML IV PRN (07:18)
[2019-02-05] MEDS: SODIUM CHLORIDE 0.9% 1,000 ML IV SCH (07:57)
[2019-02-05] MEDS: INSULIN LISPRO 100 UNIT/ML SUBCUT SCH ×4 (07:57→20:43)
[2019-02-05] MEDS: INSULIN REGULAR 100 UNIT/ML SUBCUT SCH ×2 (07:58→16:29)
[2019-02-05] MEDS ORDERED: PROPOFOL 200 MG/20 ML VIAL IV ONE (08:22)
[2019-02-05] MEDS ORDERED: MIDAZOLAM 2 MG/2 ML VIAL ONE (08:23)
[2019-02-05] MEDS ORDERED: GLYCOPYRROLATE 0.4 MG/2 ML VIAL ONE (08:23)
[2019-02-05] MEDS ORDERED: fentaNYL 100 MCG/2 ML VIAL ONE (08:23)
[2019-02-05] MEDS: PANTOPRAZOLE 40 MG VIAL IV SCH (12:03)
[2019-02-05] MEDS: INSULIN NPH 100 UNIT/ML SUBCUT SCH ×2 (12:05→20:43)
[2019-02-06] MEDS: INSULIN REGULAR 100 UNIT/ML SUBCUT SCH ×2 (07:16→17:27)
[2019-02-06] MEDS: INSULIN LISPRO 100 UNIT/ML SUBCUT SCH ×3 (10:36→17:27)
[2019-02-06] MEDS ORDERED: FLUCONAZOLE INJ 200 MG in PREMIX 1 EACH IV ONE (12:48)
[2019-02-06] MEDS: INSULIN NPH 100 UNIT/ML SUBCUT SCH (13:44)
[2019-02-06] MEDS: PANTOPRAZOLE 40 MG VIAL IV SCH (13:46)
[2019-02-06 17:56] VITALS: BP 139/79
== END 2019-02-06 17:40 | disposition home or self-care (01) | DRG 26 ==
LOC: N.ED 09:23 → N.EDINP 12:14 → N.5E 15:39
PROVIDERS: ADMIT Internal Medicine; ATTEND Internal Medicine

== ENCOUNTER 2019-02-23 21:15 | Inpatient (IN) ==
[2019-02-23] MEDS ORDERED: VANCOMYCIN INJ 1,000 MG in SODIUM CHLORIDE 0.9% 250 ML IV STA (21:46)
[2019-02-23] MEDS ORDERED: ONDANSETRON 4 MG/2 ML VIAL IV STA (21:46)
[2019-02-23] MEDS ORDERED: SODIUM CHLORIDE 0.9% 1,000 ML IV STA (21:46)
[2019-02-23] MEDS ORDERED: fentaNYL 100 MCG/2 ML VIAL IV STA (21:55)
[2019-02-23 22:17] LABS: Basophils # 0.1 10*3/uL (0.0-0.2); Basophils % 0.6 % (0.0-0.8); Eosinophils # 0.1 10*3/uL (0.0-0.87); Hematocrit 39.3 VOL% (35.7-47.0); Hemoglobin 12.3 GM/DL (12.0-16.0); Immature Granulocytes % 0.4 %; Immature Granulocytes Absolute 0.04 #; Lymphocytes % 29.9 % (21.3-54.2); Mean Corpuscular HGB Conc 31.3 GM/DL (32-36); Mean Corpuscular Volume 79.2 FL (87-102); Mean Platelet Volume 11.6 FL (9.6-12.0); Monocytes % 5.4 % (1.7-12.7); Neutrophils % 62.7 % (38.7-73.9); Platelet Count 336 T/CUMM (130-400); Red Blood Count 4.96 MC/CUMM (3.8-5.5); Red Cell Distribution Width 13.9 % (9.3-17.3); White Blood Count 10.1 T/CUMM (4-12)
[2019-02-23 22:24] LABS: Apearance,Urine CLEAR (Clear); Bilirubin,Urine Negative (Negative); Blood, Urine Negative (Negative); Glucose,Urine (UA) >=500 mg/dL (Negative); Ketones,Urine 5 mg/dL (Negative); Nitrite,Urine Negative (Negative); Protein,Urine 100 MG/DL; RBC,Urine 1 /HPF (0-4); Squamous Epithelial Cell,Urine Occasional /HPF (0-10); Urine Color Straw (Yellow); Urine Specific Gravity 1.025 (1.001-1.035); Urine Urobilinogen < 2.0 EU/DL (0.2-1.0); WBC,Urine 1 /HPF (0-6)
[2019-02-23 22:30] LABS: Barbiturates Screen,Urine Positive (Negative); Benzodiazepines Screen,Urine Negative (Negative); Cannabinoid Screen,Urine Negative (Negative); Opiate Screen,Urine Negative (Negative); Phencyclidine Screen,Urine Negative (Negative)
[2019-02-23 22:41] LABS: Alanine Aminotransferase 22 U/L (13-56); Albumin 3.2 G/DL (3.4-5.0); Alkaline Phosphatase 305 U/L (45-117); Amylase 35 U/L (25-115); Aspartate Amino Transferase 14 U/L (0-37); Bilirubin,Total < 0.39 MG/DL (0.2-1.0); Blood Urea Nitrogen 13 MG/DL (7-18); Calcium 9.8 MG/DL (8.5-10.1); Osmolality,Calculated 280.1 MOS/KG (273-304); Total Protein 9.2 G/DL (6.4-8.3)
[2019-02-23] MEDS ORDERED: INSULIN REGULAR 100 UNIT/ML IV STA (22:48)
[2019-02-23 22:50] LABS: Glucose 526 MG/DL (74-106)
[2019-02-23 23:21] LABS: Sedimentation Rate-Westergren 30 MM/HR (0-20)
[2019-02-23] MEDS ORDERED: DEXTROSE 50% 25 GM/50 ML VIAL IV PRN (23:57)
[2019-02-23] MEDS ORDERED: GLUCAGON 1 MG VIAL IM PRN (23:57)
[2019-02-23] MEDS ORDERED: NICOTINE 21 MG/24 HR PATCH TRANSDERM PRN (23:57)
[2019-02-24] MEDS ORDERED: DEXTROSE 50% 25 GM/50 ML SYRINGE IV PRN ×2 (00:09→13:41)
[2019-02-24] MEDS: MORPHINE 4 MG/1 ML VIAL IV PRN ×3 (01:35→21:32)
[2019-02-24] MEDS ORDERED: ALBUTEROL/IPRATROPIUM 3 ML NEB RESP TX ONE (01:41)
[2019-02-24 01:52] LABS: Basophils # 0.1 10*3/uL (0.0-0.2); Basophils % 0.5 % (0.0-0.8); Eosinophils # 0.1 10*3/uL (0.0-0.87); Eosinophils % 0.5 % (0.00-10.9); Hematocrit 35.7 VOL% (35.7-47.0); Hemoglobin 11.1 GM/DL (12.0-16.0); Immature Granulocytes % 0.4 %; Immature Granulocytes Absolute 0.05 #; Lymphocytes # 4.3 10*3/uL (1.4-4.0); Lymphocytes % 33.5 % (21.3-54.2); Mean Corpuscular HGB Conc 31.1 GM/DL (32-36); Mean Corpuscular Volume 80.2 FL (87-102); Monocytes % 6.4 % (1.7-12.7); Neutrophils % 58.7 % (38.7-73.9); Platelet Count 316 T/CUMM (130-400); Red Blood Count 4.45 MC/CUMM (3.8-5.5); Red Cell Distribution Width 13.8 % (9.3-17.3); White Blood Count 12.8 T/CUMM (4-12)
[2019-02-24] MEDS: SODIUM CHLORIDE 0.9% 1,000 ML IV SCH ×3 (01:57→21:30)
[2019-02-24] MEDS: CLINDAMYCIN INJ 600 MG in PREMIX 1 EACH IV SCH ×2 (01:58→09:11)
[2019-02-24] MEDS ORDERED: INSULIN REGULAR 100 UNIT/ML SUBCUT SCH ×3 (07:30→21:00)
[2019-02-24] MEDS: INSULIN GLARGINE 100 UNIT/ML SUBCUT SCH (08:34)
[2019-02-24] MEDS: INSULIN REGULAR 100 UNIT/ML SUBCUT SCH ×6 (08:34→21:28)
[2019-02-24] MEDS ORDERED: INSULIN NPH 100 UNIT/ML SUBCUT SCH ×2 (09:00→21:00)
[2019-02-24] MEDS: ONDANSETRON 4 MG/2 ML VIAL IV PRN ×2 (11:46→21:35)
[2019-02-24] MEDS: VANCOMYCIN INJ 1,000 MG in SODIUM CHLORIDE 0.9% 250 ML IV SCH ×2 (12:11→21:25)
[2019-02-24] MEDS: CIPROFLOXACIN INJ 400 MG in PREMIX 1 EACH IV SCH ×2 (12:11→23:30)
[2019-02-24] MEDS: ACETAMINOPHEN 325 MG TABLET PO PRN (14:49)
[2019-02-24] MEDS ORDERED: MORPHINE 4 MG/1 ML VIAL IV PRN (15:40)
[2019-02-24] MEDS ORDERED: ASPIRIN CHEW 81 MG TABLET PO ONE (15:40)
[2019-02-24] MEDS ORDERED: ALUM/MAG/SIMETH/LIDO VISC 1:1 30 ML BOTTLE PO ONE (15:44)
[2019-02-24] MEDS ORDERED: KETOROLAC 30 MG/1 ML VIAL IV ONE (15:50)
[2019-02-24] MEDS: INSULIN LISPRO 100 UNIT/ML SUBCUT SCH (17:31)
[2019-02-25] MEDS: ONDANSETRON 4 MG/2 ML VIAL IV PRN ×2 (02:15→08:44)
[2019-02-25] MEDS: MORPHINE 4 MG/1 ML VIAL IV PRN ×2 (02:15→08:44)
[2019-02-25] MEDS: INSULIN REGULAR 100 UNIT/ML SUBCUT SCH ×5 (03:34→14:31)
[2019-02-25] MEDS: SODIUM CHLORIDE 0.9% 1,000 ML IV SCH ×2 (05:31→14:32)
[2019-02-25 05:58] LABS: Basophils % 0.5 % (0.0-0.8); Eosinophils # 0.1 10*3/uL (0.0-0.87); Eosinophils % 1.4 % (0.00-10.9); Hematocrit 33.9 VOL% (35.7-47.0); Hemoglobin 10.3 GM/DL (12.0-16.0); Immature Granulocytes % 0.5 %; Immature Granulocytes Absolute 0.04 #; Lymphocytes # 2.8 10*3/uL (1.4-4.0); Lymphocytes % 31.4 % (21.3-54.2); Mean Corpuscular HGB Conc 30.4 GM/DL (32-36); Mean Corpuscular Volume 82.5 FL (87-102); Mean Platelet Volume 11.7 FL (9.6-12.0); Monocytes % 7.4 % (1.7-12.7); Neutrophils % 58.8 % (38.7-73.9); Platelet Count 283 T/CUMM (130-400); Red Blood Count 4.11 MC/CUMM (3.8-5.5); Red Cell Distribution Width 14.2 % (9.3-17.3); White Blood Count 8.8 T/CUMM (4-12)
[2019-02-25 06:20] LABS: Osmolality,Calculated 277.5 MOS/KG (273-304)
[2019-02-25] MEDS: INSULIN LISPRO 100 UNIT/ML SUBCUT SCH (08:34)
[2019-02-25] MEDS: VANCOMYCIN INJ 1,000 MG in SODIUM CHLORIDE 0.9% 250 ML IV SCH (08:51)
[2019-02-25] MEDS: INSULIN GLARGINE 100 UNIT/ML SUBCUT SCH (08:51)
[2019-02-25] MEDS: CIPROFLOXACIN INJ 400 MG in PREMIX 1 EACH IV SCH (10:40)
[2019-02-25] MEDS ORDERED: PROMETHAZINE 25 MG/1 ML VIAL IM ONE (12:17)
[2019-02-25] MEDS ORDERED: METOCLOPRAMIDE 10 MG TABLET PO ONE (12:17)
[2019-02-25] MEDS ORDERED: LACTATED RINGERS 1,000 ML IV ONE (12:18)
[2019-02-25] MEDS: ACETAMINOPHEN 325 MG TABLET PO PRN (14:15)
[2019-02-25 16:49] VITALS: BP 126/76
== END 2019-02-25 17:38 | disposition home or self-care (01) | DRG 420 ==
LOC: N.ED 21:15 → N.EDINP 23:57 → N.3E 02-24 00:44
PROVIDERS: ADMIT Emergency Medicine; ATTEND Emergency Medicine

== ENCOUNTER 2019-03-02 22:25 | Inpatient (IN) ==
[2019-03-02] MEDS ORDERED: SODIUM CHLORIDE 0.9% 1,000 ML IV STA (23:04)
[2019-03-02] MEDS ORDERED: diphenhydrAMINE 50 MG/1 ML VIAL IV STA (23:14)
[2019-03-02] MEDS ORDERED: METOCLOPRAMIDE 10 MG/2 ML VIAL IV STA (23:14)
[2019-03-02 23:21] LABS: Basophils # 0.1 10*3/uL (0.0-0.2); Basophils % 0.8 % (0.0-0.8); Eosinophils % 0.4 % (0.00-10.9); Hematocrit 41.5 VOL% (35.7-47.0); Immature Granulocytes % 0.4 %; Immature Granulocytes Absolute 0.04 #; Lymphocytes # 3.7 10*3/uL (1.4-4.0); Lymphocytes % 35.1 % (21.3-54.2); Mean Corpuscular HGB Conc 31.3 GM/DL (32-36); Mean Platelet Volume 11.2 FL (9.6-12.0); Monocytes % 7.3 % (1.7-12.7); Platelet Count 366 T/CUMM (130-400); Red Blood Count 5.19 MC/CUMM (3.8-5.5); Red Cell Distribution Width 14.1 % (9.3-17.3); White Blood Count 10.6 T/CUMM (4-12)
[2019-03-02 23:29] LABS: Apearance,Urine CLEAR (Clear); Bilirubin,Urine Negative (Negative); Blood, Urine Negative (Negative); Glucose,Urine (UA) >=500 mg/dL (Negative); Ketones,Urine Negative (Negative); Nitrite,Urine Negative (Negative); Protein,Urine 100 MG/DL; RBC,Urine 1 /HPF (0-4); Urine Color Straw (Yellow); Urine Specific Gravity 1.022 (1.001-1.035); Urine Urobilinogen < 2.0 EU/DL (0.2-1.0)
[2019-03-03] MEDS ORDERED: SODIUM CHLORIDE 0.9% 1,000 ML IV STA (00:38)
[2019-03-03] MEDS ORDERED: INSULIN REGULAR 100 UNIT/ML IV STA (00:38)
[2019-03-03 00:41] LABS: Alanine Aminotransferase 22 U/L (13-56); Alkaline Phosphatase 290 U/L (45-117); Aspartate Amino Transferase 18 U/L (0-37); Calcium 9.4 MG/DL (8.5-10.1); Glucose 487 MG/DL (74-106); Total Protein 9.4 G/DL (6.4-8.3)
[2019-03-03 00:42] LABS: Albumin 3.4 G/DL (3.4-5.0); Bilirubin,Total < 0.39 MG/DL (0.2-1.0); Blood Urea Nitrogen 17 MG/DL (7-18); Osmolality,Calculated 281.9 MOS/KG (273-304)
[2019-03-03] MEDS ORDERED: MORPHINE 4 MG/1 ML VIAL IV STA (00:58)
[2019-03-03] MEDS ORDERED: INSULIN REGULAR DRIP 100 ML IV SCH (01:00)
[2019-03-03] MEDS ORDERED: ONDANSETRON 4 MG/2 ML VIAL IV STA (01:20)
[2019-03-03] MEDS ORDERED: SUMAtriptan 6 MG/0.5 ML VIAL SUBCUT STA (01:56)
[2019-03-03] MEDS ORDERED: ALUM/MAG/SIMETH/LIDO VISC 1:1 30 ML BOTTLE PO STA (01:57)
[2019-03-03] MEDS ORDERED: PROMETHAZINE INJ 25 MG, diphenhydrAMINE INJ 50 MG in SODIUM CHLORIDE 0.9% 1,000 ML IV SCH (02:15)
[2019-03-03] MEDS ORDERED: ZALEPLON 5 MG CAPSULE PO PRN (02:28)
[2019-03-03] MEDS ORDERED: GLUCAGON 1 MG VIAL IM PRN (02:28)
[2019-03-03] MEDS ORDERED: DEXTROSE 50% 25 GM/50 ML VIAL IV PRN (02:28)
[2019-03-03] MEDS ORDERED: ONDANSETRON 4 MG/2 ML VIAL IV PRN (02:28)
[2019-03-03] MEDS: ENOXAPARIN 40 MG/0.4 ML SYRINGE SUBCUT SCH (02:50)
[2019-03-03] MEDS: SODIUM CHLORIDE 0.9% 1,000 ML IV SCH ×4 (04:05→23:00)
[2019-03-03] MEDS: INSULIN LISPRO 100 UNIT/ML SUBCUT SCH ×5 (06:36→22:04)
[2019-03-03 06:54] LABS: Basophils # 0.1 10*3/uL (0.0-0.2); Basophils % 0.7 % (0.0-0.8); Eosinophils # 0.1 10*3/uL (0.0-0.87); Eosinophils % 0.9 % (0.00-10.9); Hematocrit 33.7 VOL% (35.7-47.0); Hemoglobin 10.5 GM/DL (12.0-16.0); Immature Granulocytes % 0.5 %; Immature Granulocytes Absolute 0.04 #; Lymphocytes # 3.4 10*3/uL (1.4-4.0); Lymphocytes % 38.4 % (21.3-54.2); Mean Corpuscular HGB Conc 31.2 GM/DL (32-36); Mean Corpuscular Volume 79.9 FL (87-102); Mean Platelet Volume 10.8 FL (9.6-12.0); Monocytes % 8.4 % (1.7-12.7); Neutrophils % 51.1 % (38.7-73.9); Platelet Count 289 T/CUMM (130-400); Red Blood Count 4.22 MC/CUMM (3.8-5.5); Red Cell Distribution Width 14.1 % (9.3-17.3); White Blood Count 8.8 T/CUMM (4-12)
[2019-03-03 07:05] LABS: Calcium 8.4 MG/DL (8.5-10.1); Osmolality,Calculated 281.2 MOS/KG (273-304)
[2019-03-03] MEDS ORDERED: INSULIN NPH 100 UNIT/ML SUBCUT SCH ×2 (07:30→16:30)
[2019-03-03] MEDS ORDERED: INSULIN REGULAR 100 UNIT/ML SUBCUT SCH (07:30)
[2019-03-03] MEDS ORDERED: PROMETHAZINE 25 MG/1 ML VIAL IM ONE (08:52)
[2019-03-03] MEDS ORDERED: KETOROLAC 30 MG/1 ML VIAL IV ONE (08:52)
[2019-03-03] MEDS ORDERED: MEPERIDINE 25 MG/1 ML VIAL IV ONE (08:52)
[2019-03-03] MEDS ORDERED: MAGNESIUM SULF RIDER 2 GM in PREMIX 1 EACH IV ONE (10:36)
[2019-03-03] MEDS: INSULIN REGULAR 100 UNIT/ML SUBCUT SCH ×2 (11:36→16:55)
[2019-03-03] MEDS: INSULIN NPH 100 UNIT/ML SUBCUT SCH (16:56)
[2019-03-03] MEDS: ACETAMINOPHEN 325 MG TABLET PO PRN (20:06)
[2019-03-03] MEDS ORDERED: MEPERIDINE 25 MG/1 ML VIAL IM ONE (21:17)
[2019-03-03] MEDS ORDERED: KETOROLAC 30 MG/1 ML VIAL IM ONE (21:17)
[2019-03-03] MEDS: PROMETHAZINE 25 MG/1 ML VIAL IM PRN (21:47)
[2019-03-04] MEDS: ENOXAPARIN 40 MG/0.4 ML SYRINGE SUBCUT SCH (02:54)
[2019-03-04] MEDS: INSULIN LISPRO 100 UNIT/ML SUBCUT SCH ×5 (02:54→20:00)
[2019-03-04 05:24] LABS: Basophils % 0.5 % (0.0-0.8); Eosinophils # 0.1 10*3/uL (0.0-0.87); Eosinophils % 1.8 % (0.00-10.9); Hematocrit 29.3 VOL% (35.7-47.0); Immature Granulocytes % 0.5 %; Immature Granulocytes Absolute 0.04 #; Lymphocytes # 2.9 10*3/uL (1.4-4.0); Lymphocytes % 39.4 % (21.3-54.2); Mean Corpuscular HGB Conc 30.7 GM/DL (32-36); Mean Corpuscular Volume 83.2 FL (87-102); Mean Platelet Volume 11.3 FL (9.6-12.0); Monocytes % 8.8 % (1.7-12.7); Platelet Count 257 T/CUMM (130-400); Red Blood Count 3.52 MC/CUMM (3.8-5.5); Red Cell Distribution Width 14.5 % (9.3-17.3); White Blood Count 7.4 T/CUMM (4-12)
[2019-03-04 05:47] LABS: Calcium 7.5 MG/DL (8.5-10.1); Osmolality,Calculated 286.8 MOS/KG (273-304)
[2019-03-04] MEDS: ACETAMINOPHEN 325 MG TABLET PO PRN (07:46)
[2019-03-04] MEDS: INSULIN REGULAR 100 UNIT/ML SUBCUT SCH ×3 (08:58→16:58)
[2019-03-04] MEDS: INSULIN NPH 100 UNIT/ML SUBCUT SCH ×2 (08:58→16:59)
[2019-03-04] MEDS: IBUPROFEN 600 MG TABLET PO PRN (13:04)
[2019-03-04] MEDS: SODIUM CHLORIDE 0.9% 1,000 ML IV SCH ×3 (13:07→20:01)
[2019-03-04] MEDS: PROMETHAZINE 25 MG/1 ML VIAL IM PRN (14:42)
[2019-03-05] MEDS: INSULIN LISPRO 100 UNIT/ML SUBCUT SCH ×4 (00:50→11:27)
[2019-03-05] MEDS: SODIUM CHLORIDE 0.9% 1,000 ML IV SCH (03:05)
[2019-03-05] MEDS: ENOXAPARIN 40 MG/0.4 ML SYRINGE SUBCUT SCH (03:57)
[2019-03-05 04:26] LABS: Basophils % 0.5 % (0.0-0.8); Eosinophils # 0.1 10*3/uL (0.0-0.87); Eosinophils % 1.6 % (0.00-10.9); Hematocrit 29.7 VOL% (35.7-47.0); Hemoglobin 8.8 GM/DL (12.0-16.0); Immature Granulocytes % 0.4 %; Immature Granulocytes Absolute 0.03 #; Lymphocytes % 38.6 % (21.3-54.2); Mean Corpuscular HGB Conc 29.6 GM/DL (32-36); Mean Corpuscular Volume 83.7 FL (87-102); Mean Platelet Volume 11.3 FL (9.6-12.0); Monocytes % 6.7 % (1.7-12.7); Neutrophils % 52.2 % (38.7-73.9); Platelet Count 256 T/CUMM (130-400); Red Blood Count 3.55 MC/CUMM (3.8-5.5); Red Cell Distribution Width 14.5 % (9.3-17.3); White Blood Count 7.6 T/CUMM (4-12)
[2019-03-05 04:54] LABS: Calcium 7.6 MG/DL (8.5-10.1)
[2019-03-05] MEDS: INSULIN REGULAR 100 UNIT/ML SUBCUT SCH ×2 (08:48→12:00)
[2019-03-05] MEDS: INSULIN NPH 100 UNIT/ML SUBCUT SCH (08:49)
[2019-03-05 11:57] VITALS: BP 122/70
[2019-03-05] MEDS ORDERED: DEXTROSE 50% 25 GM/50 ML VIAL IV PRN (12:02)
[2019-03-05] MEDS ORDERED: GLUCAGON 1 MG VIAL IM PRN (12:02)
[2019-03-05] MEDS: IBUPROFEN 600 MG TABLET PO PRN (12:27)
[2019-03-05] MEDS: PROMETHAZINE 25 MG/1 ML VIAL IM PRN (12:27)
== END 2019-03-05 15:02 | disposition home or self-care (01) | DRG 420 ==
LOC: N.ED 22:25 → N.EDINP 22:25 → SUATTDRO 03-03 01:58 → N.2E 03-03 02:15
PROVIDERS: ADMIT Internal Medicine; ATTEND Internal Medicine

== ENCOUNTER 2019-09-22 11:31 | Observation (INO) ==
[2019-09-22] MEDS ORDERED: SODIUM CHLORIDE 0.9% 1,000 ML IV STA (12:01)
[2019-09-22] MEDS ORDERED: ONDANSETRON 4 MG/2 ML VIAL IV STA (12:01)
[2019-09-22 12:18] LABS: Basophils % 0.5 % (0.0-0.8); Eosinophils # 0.1 10*3/uL (0.0-0.87); Eosinophils % 3.7 % (0.00-10.9); Hematocrit 37.9 VOL% (35.7-47.0); Hemoglobin 12.3 GM/DL (12.0-16.0); Immature Granulocytes % 0.3 %; Immature Granulocytes Absolute 0.01 #; Lymphocytes # 2.3 10*3/uL (1.4-4.0); Lymphocytes % 61.3 % (21.3-54.2); Mean Corpuscular HGB Conc 32.5 GM/DL (32-36); Mean Platelet Volume 11.7 FL (9.6-12.0); Monocytes % 8.8 % (1.7-12.7); Neutrophils % 25.4 % (38.7-73.9); Platelet Count 172 T/CUMM (130-400); Red Blood Count 4.74 MC/CUMM (3.8-5.5); Red Cell Distribution Width 11.9 % (9.3-17.3); White Blood Count 3.8 T/CUMM (4-12)
[2019-09-22 12:35] LABS: Albumin 2.7 G/DL (3.4-5.0); Bilirubin,Total 0.4 MG/DL (0.2-1.0); Calcium 8.3 MG/DL (8.5-10.1); Osmolality,Calculated 289.1 MOS/KG (273-304); Total Protein 7.5 G/DL (6.4-8.3)
[2019-09-22 12:42] LABS: Anisocytosis Slight; Band Neutrophils 5 % (0-10); Eosinophils 3 % (0-10); Lymphocytes 62 % (20-55); Platelet Estimate Normal; Segmented Neutrophils 24 % (50-85); Total Cells Counted 100
[2019-09-22] MEDS ORDERED: INSULIN LISPRO 100 UNIT/ML SUBCUT STA (12:44)
[2019-09-22 12:45] LABS: Apearance,Urine CLEAR (Clear); Bacteria,Urine Occasional /HPF (Few); Bilirubin,Urine Negative (Negative); Blood, Urine Small mg/dL (Negative); Glucose,Urine (UA) >=500 mg/dL (Negative); Ketones,Urine 5 mg/dL (Negative); Mucus,Urine Occasional /LPF (Occasional); Nitrite,Urine Negative (Negative); Protein,Urine 100 MG/DL; RBC,Urine 6 /HPF (0-4); Squamous Epithelial Cell,Urine Occasional /HPF (0-10); Urine Color Yellow (Yellow); Urine Specific Gravity 1.026 (1.001-1.035); Urine Urobilinogen < 2.0 EU/DL (0.2-1.0); WBC,Urine 1 /HPF (0-6)
[2019-09-22] MEDS ORDERED: HYDROmorphone 2 MG/1 ML VIAL IV STA (14:07)
[2019-09-22] MEDS ORDERED: ONDANSETRON 4 MG/2 ML VIAL IV PRN (15:23)
[2019-09-22] MEDS ORDERED: BISACODYL 5 MG TABLET PO PRN (15:23)
[2019-09-22] MEDS ORDERED: DOCUSATE SODIUM 100 MG CAPSULE PO PRN (15:23)
[2019-09-22] MEDS ORDERED: GLUCAGON 1 MG VIAL IM PRN (17:02)
[2019-09-22] MEDS ORDERED: DEXTROSE 50% 25 GM/50 ML VIAL IV PRN (17:02)
[2019-09-22] MEDS: INSULIN REGULAR 100 UNIT/ML SUBCUT SCH ×2 (17:21→21:26)
[2019-09-22] MEDS: INSULIN NPH 100 UNIT/ML SUBCUT SCH (17:34)
[2019-09-22] MEDS: SODIUM CHLORIDE 0.9% 1,000 ML IV SCH (17:35)
[2019-09-22] MEDS: ACETAMINOPHEN 325 MG TABLET PO PRN (21:33)
[2019-09-23] MEDS: SODIUM CHLORIDE 0.9% 1,000 ML IV SCH ×3 (02:15→23:01)
[2019-09-23 05:48] LABS: Basophils % 0.3 % (0.0-0.8); Eosinophils # 0.1 10*3/uL (0.0-0.87); Hematocrit 30.6 VOL% (35.7-47.0); Hemoglobin 9.7 GM/DL (12.0-16.0); Lymphocytes # 2.3 10*3/uL (1.4-4.0); Lymphocytes % 56.7 % (21.3-54.2); Mean Corpuscular HGB Conc 31.7 GM/DL (32-36); Mean Platelet Volume 12.1 FL (9.6-12.0); Monocytes % 8.1 % (1.7-12.7); Neutrophils % 31.9 % (38.7-73.9); Platelet Count 155 T/CUMM (130-400); Red Blood Count 3.73 MC/CUMM (3.8-5.5)
[2019-09-23 06:20] LABS: Alanine Aminotransferase 18 U/L (13-56); Albumin 2.1 G/DL (3.4-5.0); Alkaline Phosphatase 175 U/L (45-117); Aspartate Amino Transferase 20 U/L (0-37); Bilirubin,Total < 0.39 MG/DL (0.2-1.0); Blood Urea Nitrogen 15 MG/DL (7-18); Calcium 7.7 MG/DL (8.5-10.1); Estimated Glom Filtration Rate 128 ML/MIN; Glucose 233 MG/DL (74-106); Osmolality,Calculated 286.4 MOS/KG (273-304); Total Protein 5.8 G/DL (6.4-8.3)
[2019-09-23 06:39] LABS: Eosinophils 6 % (0-10); Hypochromasia 1+; Lymphocytes 56 % (20-55); Microcytosis 1+; Platelet Estimate Normal; Segmented Neutrophils 36 % (50-85); Total Cells Counted 100
[2019-09-23] MEDS ORDERED: KETOROLAC 30 MG/1 ML VIAL IV ONE (08:02)
[2019-09-23] MEDS: INSULIN NPH 100 UNIT/ML SUBCUT SCH ×2 (08:24→17:02)
[2019-09-23] MEDS: INSULIN REGULAR 100 UNIT/ML SUBCUT SCH ×4 (08:25→21:25)
[2019-09-23] MEDS: ACETAMINOPHEN 325 MG TABLET PO PRN ×2 (15:32→21:16)
[2019-09-24 05:45] LABS: Basophils % 0.2 % (0.0-0.8); Eosinophils # 0.1 10*3/uL (0.0-0.87); Hematocrit 30.4 VOL% (35.7-47.0); Hemoglobin 9.6 GM/DL (12.0-16.0); Immature Granulocytes % 0.5 %; Immature Granulocytes Absolute 0.02 #; Lymphocytes # 2.2 10*3/uL (1.4-4.0); Lymphocytes % 54.6 % (21.3-54.2); Mean Corpuscular HGB Conc 31.6 GM/DL (32-36); Mean Corpuscular Volume 82.4 FL (87-102); Monocytes % 5.4 % (1.7-12.7); Neutrophils % 36.3 % (38.7-73.9); Platelet Count 148 T/CUMM (130-400); Red Blood Count 3.69 MC/CUMM (3.8-5.5); White Blood Count 4.1 T/CUMM (4-12)
[2019-09-24 06:01] LABS: Alanine Aminotransferase 20 U/L (13-56); Alkaline Phosphatase 176 U/L (45-117); Aspartate Amino Transferase 25 U/L (0-37); Bilirubin,Total < 0.39 MG/DL (0.2-1.0); Blood Urea Nitrogen 7 MG/DL (7-18); Calcium 6.9 MG/DL (8.5-10.1); Estimated Glom Filtration Rate 150 ML/MIN; Glucose 209 MG/DL (74-106); Osmolality,Calculated 289.8 MOS/KG (273-304); Total Protein 5.5 G/DL (6.4-8.3)
[2019-09-24 06:15] LABS: Acanthocytes Few; Band Neutrophils 3 % (0-10); Eosinophils 3 % (0-10); Lymphocytes 55 % (20-55); Platelet Estimate Adequate; Segmented Neutrophils 34 % (50-85); Total Cells Counted 100
[2019-09-24] MEDS: INSULIN NPH 100 UNIT/ML SUBCUT SCH ×2 (09:21→16:08)
[2019-09-24] MEDS: INSULIN REGULAR 100 UNIT/ML SUBCUT SCH ×4 (09:21→21:41)
[2019-09-24] MEDS: SODIUM CHLORIDE 0.45% 1,000 ML IV SCH (12:20)
[2019-09-24] MEDS: METOCLOPRAMIDE 10 MG TABLET PO SCH ×2 (12:28→16:08)
[2019-09-24] MEDS: ACETAMINOPHEN 325 MG TABLET PO PRN (16:31)
[2019-09-25 05:19] LABS: Basophils % 0.4 % (0.0-0.8); Eosinophils # 0.1 10*3/uL (0.0-0.87); Eosinophils % 1.6 % (0.00-10.9); Hematocrit 30.9 VOL% (35.7-47.0); Hemoglobin 9.8 GM/DL (12.0-16.0); Immature Granulocytes % 0.2 %; Immature Granulocytes Absolute 0.01 #; Lymphocytes # 2.2 10*3/uL (1.4-4.0); Lymphocytes % 45.2 % (21.3-54.2); Mean Corpuscular HGB Conc 31.7 GM/DL (32-36); Mean Corpuscular Volume 81.3 FL (87-102); Mean Platelet Volume 11.8 FL (9.6-12.0); Monocytes % 6.3 % (1.7-12.7); Neutrophils % 46.3 % (38.7-73.9); Platelet Count 174 T/CUMM (130-400); White Blood Count 4.9 T/CUMM (4-12)
[2019-09-25 05:43] LABS: Alanine Aminotransferase 21 U/L (13-56); Alkaline Phosphatase 198 U/L (45-117); Aspartate Amino Transferase 24 U/L (0-37); Bilirubin,Total < 0.39 MG/DL (0.2-1.0); Blood Urea Nitrogen 12 MG/DL (7-18); Calcium 7.8 MG/DL (8.5-10.1); Estimated Glom Filtration Rate 150 ML/MIN; Glucose 164 MG/DL (74-106); Osmolality,Calculated 282.4 MOS/KG (273-304); Total Protein 5.7 G/DL (6.4-8.3)
[2019-09-25 07:38] VITALS: BP 148/85
[2019-09-25] MEDS: METOCLOPRAMIDE 10 MG TABLET PO SCH ×2 (08:44→11:46)
[2019-09-25] MEDS: INSULIN REGULAR 100 UNIT/ML SUBCUT SCH ×2 (08:44→11:46)
[2019-09-25] MEDS: INSULIN NPH 100 UNIT/ML SUBCUT SCH (08:44)
[2019-09-25] MEDS: SODIUM CHLORIDE 0.45% 1,000 ML IV SCH (11:14)
[2019-09-25] MEDS ORDERED: INSULIN LISPRO 100 UNIT/ML SUBCUT SCH (12:00)
== END 2019-09-25 12:48 | disposition home or self-care (01) ==
LOC: N.ED 11:31 → INTOOBSV 15:23 → N.EDINP 15:23 → SUATTDRO 15:23 → N.5E 16:15
PROVIDERS: ADMIT Internal Medicine Cardiovascular Disease; ATTEND Internal Medicine Nephrology

== ENCOUNTER 2019-12-02 14:37 | Inpatient (IN) ==
[2019-12-02 16:08] LABS: Basophils # 0.1 10*3/uL (0.0-0.2); Basophils % 0.7 % (0.0-0.8); Eosinophils # 0.1 10*3/uL (0.0-0.87); Eosinophils % 1.2 % (0.00-10.9); Hematocrit 34.7 VOL% (35.7-47.0); Hemoglobin 11.1 GM/DL (12.0-16.0); Immature Granulocytes % 0.3 %; Immature Granulocytes Absolute 0.02 #; Lymphocytes # 2.1 10*3/uL (1.4-4.0); Lymphocytes % 31.4 % (21.3-54.2); Mean Corpuscular Volume 80.5 FL (87-102); Mean Platelet Volume 12.2 FL (9.6-12.0); Monocytes % 5.2 % (1.7-12.7); Neutrophils % 61.2 % (38.7-73.9); Platelet Count 254 T/CUMM (130-400); Red Blood Count 4.31 MC/CUMM (3.8-5.5); Red Cell Distribution Width 11.8 % (9.3-17.3); White Blood Count 6.8 T/CUMM (4-12)
[2019-12-02 16:29] LABS: Albumin 2.5 G/DL (3.4-5.0); Bilirubin,Total 0.4 MG/DL (0.2-1.0); Calcium 8.4 MG/DL (8.5-10.1); Osmolality,Calculated 285.5 MOS/KG (273-304); Total Protein 7.1 G/DL (6.4-8.3)
[2019-12-02] MEDS ORDERED: METOCLOPRAMIDE 10 MG/2 ML VIAL IV STA (17:09)
[2019-12-02] MEDS ORDERED: SODIUM CHLORIDE 0.9% 2,000 ML IV STA (17:09)
[2019-12-02] MEDS ORDERED: INSULIN REGULAR 100 UNIT/ML IV ONE (17:09)
[2019-12-02] MEDS ORDERED: ONDANSETRON 4 MG/2 ML VIAL IV STA (17:09)
[2019-12-02 18:01] LABS: Apearance,Urine CLEAR (Clear); Bilirubin,Urine Negative (Negative); Blood, Urine Moderate mg/dL (Negative); Glucose,Urine (UA) >=500 mg/dL (Negative); Ketones,Urine Negative (Negative); Nitrite,Urine Negative (Negative); Protein,Urine 100 MG/DL; RBC,Urine 77 /HPF (0-4); Squamous Epithelial Cell,Urine Occasional /HPF (0-10); Urine Color Colorless (Yellow); Urine Specific Gravity 1.026 (1.001-1.035); Urine Urobilinogen < 2.0 EU/DL (0.2-1.0); WBC,Urine 1 /HPF (0-6)
[2019-12-02] MEDS ORDERED: DEXTROSE 10% 250 ML BAG IV PRN (18:14)
[2019-12-02] MEDS ORDERED: GLUCAGON 1 MG VIAL IM PRN ×2 (18:14→19:21)
[2019-12-02] MEDS ORDERED: ONDANSETRON 4 MG/2 ML VIAL IV PRN (19:21)
[2019-12-02] MEDS ORDERED: DEXTROSE 50% 25 GM/50 ML VIAL IV PRN (19:21)
[2019-12-02] MEDS: SODIUM CHLORIDE 0.9% 1,000 ML IV SCH (19:56)
[2019-12-02] MEDS ORDERED: ENOXAPARIN 40 MG/0.4 ML SYRINGE SUBCUT SCH (21:00)
[2019-12-02] MEDS: INSULIN REGULAR 100 UNIT/ML SUBCUT SCH (22:33)
[2019-12-03] MEDS: SODIUM CHLORIDE 0.9% 1,000 ML IV SCH ×2 (04:03→11:48)
[2019-12-03 06:25] LABS: Basophils # 0.1 10*3/uL (0.0-0.2); Basophils % 0.7 % (0.0-0.8); Eosinophils # 0.2 10*3/uL (0.0-0.87); Eosinophils % 2.1 % (0.00-10.9); Hematocrit 31.7 VOL% (35.7-47.0); Hemoglobin 10.2 GM/DL (12.0-16.0); Immature Granulocytes % 0.1 %; Immature Granulocytes Absolute 0.01 #; Lymphocytes # 2.9 10*3/uL (1.4-4.0); Lymphocytes % 41.1 % (21.3-54.2); Mean Corpuscular HGB Conc 32.2 GM/DL (32-36); Mean Corpuscular Volume 80.9 FL (87-102); Mean Platelet Volume 11.9 FL (9.6-12.0); Monocytes % 7.9 % (1.7-12.7); Neutrophils % 48.1 % (38.7-73.9); Platelet Count 235 T/CUMM (130-400); Red Blood Count 3.92 MC/CUMM (3.8-5.5); Red Cell Distribution Width 11.9 % (9.3-17.3)
[2019-12-03 07:06] LABS: Bilirubin,Total 0.4 MG/DL (0.2-1.0); Calcium 7.9 MG/DL (8.5-10.1); Osmolality,Calculated 280.5 MOS/KG (273-304)
[2019-12-03 07:53] VITALS: BP 134/87
[2019-12-03] MEDS ORDERED: ACETAMINOPHEN 325 MG TABLET PO PRN (09:24)
[2019-12-03] MEDS: INSULIN REGULAR 100 UNIT/ML SUBCUT SCH ×2 (09:24→12:00)
== END 2019-12-03 12:38 | disposition home or self-care (01) | DRG 638 ==
LOC: N.ED 14:37 → N.EDINP 18:14 → N.5E 18:36
PROVIDERS: ADMIT Internal Medicine; ATTEND Internal Medicine

== ENCOUNTER 2020-03-04 16:20 | Observation (INO) ==
[2020-03-04] MEDS ORDERED: SODIUM CHLORIDE 0.9% 500 ML IV STA (16:46)
[2020-03-04 17:28] LABS: Basophils # 0.1 10*3/uL (0.0-0.2); Basophils % 0.8 % (0.0-0.8); Eosinophils # 0.1 10*3/uL (0.0-0.87); Eosinophils % 1.3 % (0.00-10.9); Hematocrit 34.7 VOL% (35.7-47.0); Hemoglobin 10.9 GM/DL (12.0-16.0); Immature Granulocytes % 0.3 %; Immature Granulocytes Absolute 0.02 #; Lymphocytes # 2.1 10*3/uL (1.4-4.0); Lymphocytes % 27.7 % (21.3-54.2); Mean Corpuscular HGB Conc 31.4 GM/DL (32-36); Mean Corpuscular Volume 81.5 FL (87-102); Mean Platelet Volume 12.3 FL (9.6-12.0); Monocytes % 5.6 % (1.7-12.7); Neutrophils % 64.3 % (38.7-73.9); Platelet Count 236 T/CUMM (130-400); Red Blood Count 4.26 MC/CUMM (3.8-5.5); Red Cell Distribution Width 12.3 % (9.3-17.3); White Blood Count 7.7 T/CUMM (4-12)
[2020-03-04] MEDS ORDERED: INSULIN REGULAR 100 UNIT/ML IV STA (17:37)
[2020-03-04 17:49] LABS: Apearance,Urine CLEAR (Clear); Bilirubin,Urine Negative (Negative); Blood, Urine Small mg/dL (Negative); Glucose,Urine (UA) >=500 mg/dL (Negative); Ketones,Urine Negative (Negative); Nitrite,Urine Negative (Negative); Protein,Urine 100 MG/DL; RBC,Urine 3 /HPF (0-4); Squamous Epithelial Cell,Urine Occasional /HPF (0-10); Urine Color Straw (Yellow); Urine Specific Gravity 1.023 (1.001-1.035); Urine Urobilinogen < 2.0 EU/DL (0.2-1.0); WBC,Urine 1 /HPF (0-6)
[2020-03-04 18:40] LABS: Eosinophils 1 % (0-10); Lymphocytes 30 % (20-55); Platelet Estimate Adequate; Segmented Neutrophils 62 % (50-85); Total Cells Counted 100
[2020-03-04 18:42] LABS: Alanine Aminotransferase 30 U/L (13-56); Albumin 2.2 G/DL (3.4-5.0); Alkaline Phosphatase 311 U/L (45-117); Aspartate Amino Transferase 33 U/L (0-37); Bilirubin,Direct < 0.100 MG/DL (0.0-0.20); Bilirubin,Indirect 0.3 MG/DL (0.0-1.0); Bilirubin,Total < 0.39 MG/DL (0.2-1.0); Blood Urea Nitrogen 26 MG/DL (7-18); Calcium 8.4 MG/DL (8.5-10.1); Estimated Glom Filtration Rate 68 ML/MIN; Osmolality,Calculated 289.5 MOS/KG (273-304); Total Protein 7.1 G/DL (6.4-8.3)
[2020-03-04 18:44] LABS: Glucose 718 MG/DL (74-106)
[2020-03-04] MEDS ORDERED: SODIUM CHLORIDE 0.9% 1,000 ML IV STA (19:45)
[2020-03-04] MEDS ORDERED: hydrALAZINE 20 MG/1 ML VIAL IV STA (20:14)
[2020-03-04] MEDS ORDERED: INSULIN REGULAR 100 UNIT/ML SUBCUT STA (21:17)
[2020-03-04 23:03] LABS: Calcium 8.2 MG/DL (8.5-10.1); Osmolality,Calculated 281.5 MOS/KG (273-304)
[2020-03-04] MEDS ORDERED: DEXTROSE 10% 250 ML BAG IV PRN (23:56)
[2020-03-04] MEDS ORDERED: DEXTROSE 50% 25 GM/50 ML SYRINGE IV PRN (23:56)
[2020-03-04] MEDS ORDERED: GLUCAGON 1 MG VIAL IM PRN (23:56)
[2020-03-04] MEDS ORDERED: ONDANSETRON 4 MG/2 ML VIAL IV PRN (23:56)
[2020-03-05] MEDS ORDERED: ENOXAPARIN 40 MG/0.4 ML SYRINGE SUBCUT SCH
[2020-03-05] MEDS: SODIUM CHLORIDE 0.9% 1,000 ML IV SCH ×2 (00:47→08:19)
[2020-03-05] MEDS ORDERED: INSULIN GLARGINE 100 UNIT/ML SUBCUT SCH (00:53)
[2020-03-05] MEDS ORDERED: hydrALAZINE 25 MG TABLET PO PRN (00:55)
[2020-03-05 05:26] LABS: Basophils # 0.1 10*3/uL (0.0-0.2); Basophils % 0.7 % (0.0-0.8); Eosinophils # 0.1 10*3/uL (0.0-0.87); Eosinophils % 1.9 % (0.00-10.9); Hematocrit 31.6 VOL% (35.7-47.0); Hemoglobin 9.7 GM/DL (12.0-16.0); Immature Granulocytes % 0.3 %; Immature Granulocytes Absolute 0.02 #; Lymphocytes # 2.8 10*3/uL (1.4-4.0); Lymphocytes % 41.2 % (21.3-54.2); Mean Corpuscular HGB Conc 30.7 GM/DL (32-36); Mean Corpuscular Volume 82.7 FL (87-102); Mean Platelet Volume 11.9 FL (9.6-12.0); Monocytes % 6.7 % (1.7-12.7); Neutrophils % 49.2 % (38.7-73.9); Platelet Count 198 T/CUMM (130-400); Red Blood Count 3.82 MC/CUMM (3.8-5.5); Red Cell Distribution Width 12.2 % (9.3-17.3); White Blood Count 6.8 T/CUMM (4-12)
[2020-03-05 05:44] LABS: Albumin 1.6 G/DL (3.4-5.0); Bilirubin,Total 0.6 MG/DL (0.2-1.0); Calcium 7.8 MG/DL (8.5-10.1); Osmolality,Calculated 277.1 MOS/KG (273-304); Total Protein 5.7 G/DL (6.4-8.3)
[2020-03-05] MEDS: INSULIN REGULAR 100 UNIT/ML SUBCUT SCH ×2 (08:18→11:44)
[2020-03-05 09:32] LABS: Folate 6.5 NG/ML (5.4-24.0); Vitamin B12 763 PG/ML (211-911)
[2020-03-05 11:19] LABS: Basophils # 0.1 10*3/uL (0.0-0.2); Basophils % 0.9 % (0.0-0.8); Eosinophils # 0.2 10*3/uL (0.0-0.87); Eosinophils % 2.7 % (0.00-10.9); Hematocrit 32.3 VOL% (35.7-47.0); Hemoglobin 10.1 GM/DL (12.0-16.0); Immature Granulocytes % 0.4 %; Immature Granulocytes Absolute 0.02 #; Lymphocytes # 2.3 10*3/uL (1.4-4.0); Lymphocytes % 40.6 % (21.3-54.2); Mean Corpuscular HGB Conc 31.3 GM/DL (32-36); Mean Corpuscular Volume 82.6 FL (87-102); Mean Platelet Volume 11.1 FL (9.6-12.0); Monocytes % 6.3 % (1.7-12.7); Neutrophils % 49.1 % (38.7-73.9); Platelet Count 204 T/CUMM (130-400); Red Blood Count 3.91 MC/CUMM (3.8-5.5); Red Cell Distribution Width 12.4 % (9.3-17.3); White Blood Count 5.6 T/CUMM (4-12)
[2020-03-05 11:43] VITALS: BP 111/73
[2020-03-05 12:22] LABS: Sedimentation Rate-Westergren 115 MM/HR (0-20)
[2020-03-06 09:11] LABS: Hemoglobin A1 (Alkaline) 97.8 % (96.5-98.5); Hemoglobin A2 (Alkaline) 2.2 % (1.5-3.5)
== END 2020-03-05 12:30 | disposition home or self-care (01) ==
LOC: N.EDINP 16:20 → N.ED 16:20 → N.EDINP 23:35 → N.3E 03-05 00:09
PROVIDERS: ADMIT Internal Medicine; ATTEND Internal Medicine

== ENCOUNTER 2020-08-26 19:26 | Inpatient (IN) ==
[2020-08-26] MEDS ORDERED: SODIUM CHLORIDE 0.9% 1,000 ML IV STA (19:48)
[2020-08-26] MEDS ORDERED: ONDANSETRON 4 MG/2 ML VIAL IV STA (19:48)
[2020-08-26 19:51] LABS: Basophils # 0.1 10*3/uL (0.0-0.2); Basophils % 0.8 % (0.0-0.8); Eosinophils # 0.1 10*3/uL (0.0-0.87); Eosinophils % 2.3 % (0.00-10.9); Hemoglobin 9.1 GM/DL (12.0-16.0); Immature Granulocytes % 0.2 %; Immature Granulocytes Absolute 0.01 #; Lymphocytes % 33.1 % (21.3-54.2); Mean Corpuscular HGB Conc 33.7 GM/DL (32-36); Mean Corpuscular Volume 76.9 FL (87-102); Mean Platelet Volume 11.2 FL (9.6-12.0); Monocytes % 7.2 % (1.7-12.7); Neutrophils % 56.4 % (38.7-73.9); Platelet Count 256 T/CUMM (130-400); Red Blood Count 3.51 MC/CUMM (3.8-5.5); Red Cell Distribution Width 13.3 % (9.3-17.3); White Blood Count 6.1 T/CUMM (4-12)
[2020-08-26] MEDS ORDERED: INSULIN REGULAR 100 UNIT/ML SUBCUT STA ×2 (19:53→21:33)
[2020-08-26] MEDS ORDERED: METOCLOPRAMIDE 10 MG/2 ML VIAL IV STA (19:53)
[2020-08-26] MEDS ORDERED: hydrALAZINE 20 MG/1 ML VIAL IV STA (19:53)
[2020-08-26 20:10] LABS: Alanine Aminotransferase 16 U/L (13-56); Albumin 1.5 G/DL (3.4-5.0); Alkaline Phosphatase 197 U/L (45-117); Aspartate Amino Transferase 24 U/L (0-37); Bilirubin,Total < 0.39 MG/DL (0.2-1.0); Blood Urea Nitrogen 18 MG/DL (7-18); Calcium 7.6 MG/DL (8.5-10.1); Estimated Glom Filtration Rate 51 ML/MIN; Osmolality,Calculated 296.2 MOS/KG (273-304); Total Protein 6.2 G/DL (6.4-8.3)
[2020-08-26 20:11] LABS: Glucose 583 MG/DL (74-106)
[2020-08-26 20:13] LABS: Bilirubin,Urine Negative (Negative); Blood, Urine Small mg/dL (Negative); Glucose,Urine (UA) >=500 mg/dL (Negative); Hyaline Casts,Urine 1 /LPF (0-3); Ketones,Urine Negative (Negative); Mucus,Urine Occasional /LPF (Occasional); Nitrite,Urine Negative (Negative); Protein,Urine 100 MG/DL; RBC,Urine 3 /HPF (0-4); Squamous Epithelial Cell,Urine Occasional /HPF (0-10); Urine Appearance CLEAR (Clear); Urine Color Straw (Yellow); Urine Specific Gravity 1.015 (1.001-1.035); Urine Urobilinogen < 2.0 EU/DL (0.2-1.0); WBC,Urine 2 /HPF (0-6)
[2020-08-26] MEDS ORDERED: POTASSIUM CHLORIDE RIDER 20 MEQ in PREMIX 1 EACH IV STA (20:18)
[2020-08-26] MEDS ORDERED: KETOROLAC 30 MG/1 ML VIAL IV STA (20:18)
[2020-08-26] MEDS ORDERED: ALUM/MAG/SIMETH/LIDO VISC 1:1 30 ML BOTTLE PO STA (20:18)
[2020-08-26] MEDS ORDERED: POTASSIUM CHLORIDE RIDER 100 ML IV ONE ×2 (20:20→20:52)
[2020-08-26] MEDS ORDERED: HYDROmorphone 2 MG/1 ML VIAL IV ONE (21:11)
[2020-08-26] MEDS ORDERED: HYDROmorphone 2 MG/1 ML VIAL ONE (21:12)
[2020-08-27] MEDS ORDERED: DOCUSATE SODIUM 100 MG CAPSULE PO PRN (00:50)
[2020-08-27] MEDS ORDERED: hydrALAZINE 20 MG/1 ML VIAL IV PRN (00:50)
[2020-08-27] MEDS ORDERED: DEXTROSE 50% 25 GM/50 ML VIAL IV PRN ×2 (00:50→16:57)
[2020-08-27] MEDS ORDERED: GLUCAGON 1 MG VIAL IM PRN ×2 (00:50→16:57)
[2020-08-27] MEDS ORDERED: MAGNESIUM SULF RIDER 4 GM in PREMIX 1 EACH IV PRN (00:54)
[2020-08-27] MEDS ORDERED: MAGNESIUM SULF RIDER 2 GM in PREMIX 1 EACH IV PRN (00:54)
[2020-08-27] MEDS ORDERED: PROMETHAZINE 25 MG/1 ML VIAL IM PRN (00:55)
[2020-08-27] MEDS: ACETAMINOPHEN 325 MG TABLET PO PRN ×2 (01:32→21:53)
[2020-08-27] MEDS: SODIUM CHLORIDE 0.9% 1,000 ML IV SCH ×2 (01:32→12:38)
[2020-08-27] MEDS: ONDANSETRON 4 MG/2 ML VIAL IV PRN (01:33)
[2020-08-27] MEDS: POTASSIUM CHLORIDE RIDER 10 MEQ in PREMIX 1 EACH IV PRN ×5 (03:32→09:43)
[2020-08-27 06:19] LABS: Basophils % 0.6 % (0.0-0.8); Eosinophils # 0.1 10*3/uL (0.0-0.87); Eosinophils % 1.3 % (0.00-10.9); Hemoglobin 8.6 GM/DL (12.0-16.0); Immature Granulocytes % 0.3 %; Immature Granulocytes Absolute 0.02 #; Lymphocytes # 1.8 10*3/uL (1.4-4.0); Lymphocytes % 28.6 % (21.3-54.2); Mean Corpuscular HGB Conc 33.1 GM/DL (32-36); Mean Corpuscular Volume 77.6 FL (87-102); Mean Platelet Volume 11.2 FL (9.6-12.0); Monocytes % 10.3 % (1.7-12.7); Neutrophils % 58.9 % (38.7-73.9); Platelet Count 234 T/CUMM (130-400); Red Blood Count 3.35 MC/CUMM (3.8-5.5); Red Cell Distribution Width 13.2 % (9.3-17.3); White Blood Count 6.3 T/CUMM (4-12)
[2020-08-27 06:44] LABS: % Iron Saturation 14.5 % (18-50); Ferritin 209.7 ng/ml (8-252)
[2020-08-27 06:46] LABS: Albumin 1.3 G/DL (3.4-5.0); Bilirubin,Total 0.4 MG/DL (0.2-1.0); Calcium 7.1 MG/DL (8.5-10.1); Osmolality,Calculated 278.7 MOS/KG (273-304); Total Protein 5.5 G/DL (6.4-8.3)
[2020-08-27] MEDS: ENOXAPARIN 40 MG/0.4 ML SYRINGE SUBCUT SCH (08:55)
[2020-08-27] MEDS: BISACODYL 5 MG TABLET PO SCH (08:55)
[2020-08-27] MEDS: INSULIN REGULAR 100 UNIT/ML SUBCUT SCH ×4 (08:59→20:58)
[2020-08-27] MEDS: amLODIPine 5 MG TABLET PO SCH (12:42)
[2020-08-27] MEDS: SODIUM CHLOR 0.45% KCL 20 MEQ 20 MEQ/1,000 ML BAG IV SCH (15:17)
[2020-08-27] MEDS: METOCLOPRAMIDE 10 MG/2 ML VIAL IV SCH ×2 (15:17→20:59)
[2020-08-27 16:36] LABS: Calcium 6.9 MG/DL (8.5-10.1)
[2020-08-28] MEDS: METOCLOPRAMIDE 10 MG/2 ML VIAL IV SCH ×4 (02:50→21:10)
[2020-08-28 05:20] LABS: Basophils % 0.8 % (0.0-0.8); Eosinophils # 0.1 10*3/uL (0.0-0.87); Eosinophils % 1.5 % (0.00-10.9); Hematocrit 25.2 VOL% (35.7-47.0); Hemoglobin 8.2 GM/DL (12.0-16.0); Immature Granulocytes % 0.2 %; Immature Granulocytes Absolute 0.01 #; Lymphocytes # 1.7 10*3/uL (1.4-4.0); Lymphocytes % 33.3 % (21.3-54.2); Mean Corpuscular HGB Conc 32.5 GM/DL (32-36); Mean Corpuscular Volume 78.8 FL (87-102); Mean Platelet Volume 11.5 FL (9.6-12.0); Monocytes % 7.5 % (1.7-12.7); Neutrophils % 56.7 % (38.7-73.9); Platelet Count 249 T/CUMM (130-400); Red Cell Distribution Width 13.6 % (9.3-17.3); White Blood Count 5.2 T/CUMM (4-12)
[2020-08-28 05:34] LABS: Calcium 6.9 MG/DL (8.5-10.1); Osmolality,Calculated 286.3 MOS/KG (273-304)
[2020-08-28] MEDS: SODIUM CHLOR 0.45% KCL 20 MEQ 20 MEQ/1,000 ML BAG IV SCH ×2 (07:49→09:39)
[2020-08-28] MEDS: amLODIPine 5 MG TABLET PO SCH (08:50)
[2020-08-28] MEDS: ENOXAPARIN 40 MG/0.4 ML SYRINGE SUBCUT SCH (08:50)
[2020-08-28] MEDS: BISACODYL 5 MG TABLET PO SCH (08:50)
[2020-08-28] MEDS: INSULIN REGULAR 100 UNIT/ML SUBCUT SCH ×4 (08:51→21:10)
[2020-08-28] MEDS: INSULIN GLARGINE 100 UNIT/ML SUBCUT SCH (08:51)
[2020-08-28] MEDS ORDERED: GLUCAGON 1 MG VIAL IM PRN (09:29)
[2020-08-28] MEDS ORDERED: DEXTROSE 50% 25 GM/50 ML VIAL IV PRN (09:29)
[2020-08-28] MEDS: ACETAMINOPHEN 325 MG TABLET PO PRN (09:39)
[2020-08-28] MEDS: ONDANSETRON 4 MG/2 ML VIAL IV PRN (09:39)
[2020-08-28] MEDS: PANTOPRAZOLE 40 MG TABLET PO SCH (13:58)
[2020-08-28] MEDS ORDERED: amLODIPine 5 MG TABLET PO ONE (14:12)
[2020-08-28] MEDS: carvediloL 6.25 MG TABLET PO SCH ×2 (14:52→21:10)
[2020-08-28] MEDS: lisinopriL 10 MG TABLET PO SCH (14:52)
[2020-08-28] MEDS: POTASSIUM CHLORIDE 20 MEQ/15 ML UDCUP PO SCH ×3 (15:05→21:10)
[2020-08-28] MEDS ORDERED: METHOCARBAMOL 500 MG TABLET PO PRN (15:17)
[2020-08-28] MEDS: FERROUS SULFATE 325 MG TABLET PO SCH (21:10)
[2020-08-29] MEDS: METOCLOPRAMIDE 10 MG/2 ML VIAL IV SCH ×4 (01:48→21:17)
[2020-08-29] MEDS: SODIUM CHLOR 0.45% KCL 20 MEQ 20 MEQ/1,000 ML BAG IV SCH (03:58)
[2020-08-29 05:42] LABS: Basophils % 0.7 % (0.0-0.8); Eosinophils # 0.1 10*3/uL (0.0-0.87); Eosinophils % 2.2 % (0.00-10.9); Hematocrit 27.9 VOL% (35.7-47.0); Hemoglobin 9.1 GM/DL (12.0-16.0); Immature Granulocytes % 0.4 %; Immature Granulocytes Absolute 0.02 #; Lymphocytes # 1.4 10*3/uL (1.4-4.0); Lymphocytes % 25.6 % (21.3-54.2); Mean Corpuscular HGB Conc 32.6 GM/DL (32-36); Mean Corpuscular Volume 79.9 FL (87-102); Mean Platelet Volume 11.1 FL (9.6-12.0); Monocytes % 5.3 % (1.7-12.7); Neutrophils % 65.8 % (38.7-73.9); Platelet Count 299 T/CUMM (130-400); Red Blood Count 3.49 MC/CUMM (3.8-5.5); Red Cell Distribution Width 13.7 % (9.3-17.3); White Blood Count 5.5 T/CUMM (4-12)
[2020-08-29 06:27] LABS: Parathyroid Hormone Intact 305.6 PG/ML (18.4-80.1)
[2020-08-29 06:28] LABS: Alanine Aminotransferase 17 U/L (13-56); Albumin 1.4 G/DL (3.4-5.0); Alkaline Phosphatase 194 U/L (45-117); Aspartate Amino Transferase 24 U/L (0-37); Bilirubin,Total < 0.39 MG/DL (0.2-1.0); Blood Urea Nitrogen 16 MG/DL (7-18); Calcium 7.1 MG/DL (8.5-10.1); Calcium 7.2 MG/DL (8.5-10.1); Estimated Glom Filtration Rate 54 ML/MIN; Glucose 193 MG/DL (74-106); Osmolality,Calculated 286.4 MOS/KG (273-304); Total Protein 5.9 G/DL (6.4-8.3)
[2020-08-29] MEDS ORDERED: cefOXitin 2,000 MG in SYRINGE 1 EACH IV ONE (07:16)
[2020-08-29] MEDS ORDERED: hydrALAZINE 20 MG/1 ML VIAL ONE (07:36)
[2020-08-29] MEDS ORDERED: LIDOCAINE 2% 5 ML VIAL ONE ×2 (08:16→10:07)
[2020-08-29] MEDS ORDERED: propofoL 200 MG/20 ML VIAL IV ONE ×2 (08:16→10:07)
[2020-08-29] MEDS: LACTATED RINGERS 1,000 ML IV SCH (08:33)
[2020-08-29 09:41] LABS: Hemoglobin A1 (Alkaline) 97.8 % (96.5-98.5); Hemoglobin A2 (Alkaline) 2.2 % (1.5-3.5)
[2020-08-29] MEDS: INSULIN REGULAR 100 UNIT/ML SUBCUT SCH ×4 (09:42→21:53)
[2020-08-29] MEDS ORDERED: fentaNYL 100 MCG/2 ML VIAL ONE (10:04)
[2020-08-29] MEDS ORDERED: MIDAZOLAM 2 MG/2 ML VIAL ONE (10:05)
[2020-08-29] MEDS ORDERED: ROCURONIUM 50 MG/5 ML VIAL IV ONE (10:07)
[2020-08-29] MEDS ORDERED: SUCCINYLCHOLINE 200 MG/10 ML VIAL ONE (10:07)
[2020-08-29] MEDS ORDERED: BUPIVACAINE MPF 0.25% 30 ML VIAL ONE (10:58)
[2020-08-29] MEDS ORDERED: TISSUE ADHESIVE 1 EACH APPLICATOR TOP ONE ×2 (10:59→12:10)
[2020-08-29] MEDS ORDERED: LIDOCAINE 1%/EPI INJ 20 ML VIAL ONE (10:59)
[2020-08-29] MEDS ORDERED: ceFAZolin 1,000 MG VIAL ONE ×2 (11:07)
[2020-08-29] MEDS ORDERED: PHENYLEPHRINE 10 MG/1 ML VIAL IV ONE (11:14)
[2020-08-29] MEDS ORDERED: ePHEDrine 50 MG/ML VIAL ONE (11:27)
[2020-08-29] MEDS ORDERED: DEXAMETHASONE 4 MG/1 ML VIAL ONE (11:39)
[2020-08-29] MEDS ORDERED: ONDANSETRON 4 MG/2 ML VIAL ONE (11:43)
[2020-08-29] MEDS ORDERED: LACTATED RINGERS 1,000 ML IV ONE (12:02)
[2020-08-29] MEDS ORDERED: SEVOFLURANE 1 UNIT/15 MINUTE INH ONE (12:08)
[2020-08-29] MEDS ORDERED: ONDANSETRON 4 MG/2 ML VIAL IV PRN (12:27)
[2020-08-29] MEDS ORDERED: HYDROmorphone 2 MG/1 ML VIAL ONE (12:30)
[2020-08-29] MEDS: HYDROmorphone 2 MG/1 ML VIAL IV PRN ×2 (12:35→12:40)
[2020-08-29] MEDS: INSULIN GLARGINE 100 UNIT/ML SUBCUT SCH ×2 (13:02→14:09)
[2020-08-29] MEDS: carvediloL 6.25 MG TABLET PO SCH (13:50)
[2020-08-29] MEDS: amLODIPine 10 MG TABLET PO SCH (14:08)
[2020-08-29] MEDS: FERROUS SULFATE 325 MG TABLET PO SCH ×2 (14:08→21:18)
[2020-08-29] MEDS: lisinopriL 10 MG TABLET PO SCH (14:08)
[2020-08-29] MEDS: PANTOPRAZOLE 40 MG TABLET PO SCH (14:08)
[2020-08-29] MEDS: BISACODYL 5 MG TABLET PO SCH (14:08)
[2020-08-29] MEDS: POTASSIUM CHLORIDE 20 MEQ TABLET PO SCH (14:09)
[2020-08-29] MEDS: POTASSIUM CHLORIDE 20 MEQ/15 ML UDCUP PO SCH ×3 (14:09→21:18)
[2020-08-29] MEDS: ONDANSETRON 4 MG/2 ML VIAL IV PRN (15:10)
[2020-08-29] MEDS: MORPHINE 4 MG/1 ML VIAL IV PRN (17:22)
[2020-08-29 19:02] LABS: Protein/Creatinine Ratio,Urine 10.9 RATIO
[2020-08-29] MEDS: carvediloL 12.5 MG TABLET PO SCH (21:18)
[2020-08-30] MEDS: METOCLOPRAMIDE 10 MG/2 ML VIAL IV SCH ×3 (02:11→13:01)
[2020-08-30] MEDS: SODIUM CHLOR 0.45% KCL 20 MEQ 20 MEQ/1,000 ML BAG IV SCH ×2 (04:05→04:06)
[2020-08-30] MEDS: MORPHINE 4 MG/1 ML VIAL IV PRN ×2 (05:05→12:56)
[2020-08-30 05:47] LABS: Basophils # 0.1 10*3/uL (0.0-0.2); Basophils % 0.5 % (0.0-0.8); Eosinophils # 0.1 10*3/uL (0.0-0.87); Hematocrit 25.2 VOL% (35.7-47.0); Immature Granulocytes % 0.4 %; Immature Granulocytes Absolute 0.04 #; Lymphocytes % 29.8 % (21.3-54.2); Mean Corpuscular HGB Conc 31.7 GM/DL (32-36); Mean Corpuscular Volume 81.6 FL (87-102); Mean Platelet Volume 10.8 FL (9.6-12.0); Monocytes % 8.8 % (1.7-12.7); Neutrophils % 59.5 % (38.7-73.9); Platelet Count 295 T/CUMM (130-400); Red Blood Count 3.09 MC/CUMM (3.8-5.5); Red Cell Distribution Width 14.2 % (9.3-17.3)
[2020-08-30 06:43] LABS: Calcium 6.9 MG/DL (8.5-10.1); Osmolality,Calculated 278.5 MOS/KG (273-304)
[2020-08-30] MEDS ORDERED: CHOLECALCIFEROL 1,000 UNIT TABLET PO SCH (09:00)
[2020-08-30] MEDS: INSULIN REGULAR 100 UNIT/ML SUBCUT SCH ×2 (09:03→13:01)
[2020-08-30] MEDS: LACTATED RINGERS 1,000 ML IV SCH (09:04)
[2020-08-30] MEDS: carvediloL 12.5 MG TABLET PO SCH (09:05)
[2020-08-30] MEDS: BISACODYL 5 MG TABLET PO SCH (09:05)
[2020-08-30] MEDS: FERROUS SULFATE 325 MG TABLET PO SCH (09:05)
[2020-08-30] MEDS: POTASSIUM CHLORIDE 20 MEQ/15 ML UDCUP PO SCH (09:06)
[2020-08-30] MEDS: PANTOPRAZOLE 40 MG TABLET PO SCH (09:06)
[2020-08-30] MEDS: lisinopriL 10 MG TABLET PO SCH (09:06)
[2020-08-30] MEDS: POTASSIUM CHLORIDE 20 MEQ TABLET PO SCH (09:06)
[2020-08-30] MEDS: amLODIPine 10 MG TABLET PO SCH (09:06)
[2020-08-30] MEDS: ENOXAPARIN 40 MG/0.4 ML SYRINGE SUBCUT SCH (09:12)
[2020-08-30] MEDS: INSULIN GLARGINE 100 UNIT/ML SUBCUT SCH (09:13)
[2020-08-30 12:40] VITALS: BP 131/88
[2020-08-30] MEDS ORDERED: METOCLOPRAMIDE 10 MG TABLET PO SCH (16:30)
[2020-08-31 15:56] LABS: Renin Activity < 0.6 ng/mL/h
== END 2020-08-30 15:21 | DRG 418 ==
LOC: N.EDINP 19:26 → N.ED 19:26 → SUATTDRO 23:08 → N.TELES 23:29
PROVIDERS: ADMIT Hospitalist; ATTEND Family Medicine
PROC: LAPCHOL (2020-08-29 10:53)

== ENCOUNTER 2020-10-19 12:42 | Inpatient (IN) ==
[2020-10-19 13:27] LABS: Basophils % 0.4 % (0.0-0.8); Eosinophils # 0.2 10*3/uL (0.0-0.87); Eosinophils % 1.7 % (0.00-10.9); Hemoglobin 13.1 GM/DL (12.0-16.0); Immature Granulocytes % 0.4 %; Immature Granulocytes Absolute 0.04 #; Lymphocytes # 1.6 10*3/uL (1.4-4.0); Lymphocytes % 17.1 % (21.3-54.2); Mean Corpuscular HGB Conc 31.2 GM/DL (32-36); Mean Corpuscular Volume 82.8 FL (87-102); Mean Platelet Volume 10.2 FL (9.6-12.0); Neutrophils % 74.4 % (38.7-73.9); Platelet Count 356 T/CUMM (130-400); Red Blood Count 5.07 MC/CUMM (3.8-5.5); Red Cell Distribution Width 15.1 % (9.3-17.3); White Blood Count 9.2 T/CUMM (4-12)
[2020-10-19] MEDS ORDERED: LACTATED RINGERS 1,000 ML IV ONE (13:39)
[2020-10-19 13:44] LABS: Bacteria,Urine Occasional /HPF (Few); Bilirubin,Urine Negative (Negative); Blood, Urine Small mg/dL (Negative); Glucose,Urine (UA) >=500 mg/dL (Negative); Hyaline Casts,Urine 2 /LPF (0-3); Ketones,Urine Negative (Negative); Nitrite,Urine Negative (Negative); Protein,Urine >=500 MG/DL; RBC,Urine 2 /HPF (0-4); Squamous Epithelial Cell,Urine Occasional /HPF (0-10); Urine Appearance CLOUDY (Clear); Urine Color Yellow (Yellow); Urine Specific Gravity 1.016 (1.001-1.035); Urine Urobilinogen < 2.0 EU/DL (0.2-1.0); WBC,Urine 4 /HPF (0-6)
[2020-10-19 13:47] LABS: Alanine Aminotransferase 23 U/L (13-56); Albumin 1.6 G/DL (3.4-5.0); Alkaline Phosphatase 368 U/L (45-117); Aspartate Amino Transferase 32 U/L (0-37); Bilirubin,Total < 0.39 MG/DL (0.2-1.0); Blood Urea Nitrogen 52 MG/DL (7-18); Calcium 7.1 MG/DL (8.5-10.1); Carbon Dioxide 17 MMOL/L (21-32); Estimated Glom Filtration Rate 13 ML/MIN; Glucose 199 MG/DL (74-106); Potassium 3.9 MMOL/L (3.5-5.1); Sodium 136 MMOL/L (136-145); Total Protein 7.5 G/DL (6.4-8.3)
[2020-10-19] MEDS ORDERED: hydrALAZINE 20 MG/1 ML VIAL IV STA (13:49)
[2020-10-19] MEDS ORDERED: ONDANSETRON 4 MG/2 ML VIAL IV ONE (13:51)
[2020-10-19] MEDS ORDERED: HYDROmorphone 2 MG/1 ML VIAL IV STA (13:51)
[2020-10-19] MEDS ORDERED: GLUCAGON 1 MG VIAL IM PRN ×2 (15:26)
[2020-10-19] MEDS ORDERED: DEXTROSE 50% 25 GM/50 ML VIAL IV PRN ×2 (15:26)
[2020-10-19] MEDS: PANTOPRAZOLE 40 MG VIAL IV SCH (16:45)
[2020-10-19] MEDS: FUROSEMIDE 40 MG/4 ML VIAL IV SCH (16:57)
[2020-10-19] MEDS: INSULIN REGULAR 100 UNIT/ML SUBCUT SCH (17:00)
[2020-10-19] MEDS: hydrALAZINE 20 MG/1 ML VIAL IV PRN (18:06)
[2020-10-19 18:50] LABS: Microalbum/Creat Ratio Random 9358.7 RATIO (0-30)
[2020-10-19] MEDS: ENOXAPARIN 30 MG/0.3 ML SYRINGE SUBCUT SCH (19:22)
[2020-10-19] MEDS: METOCLOPRAMIDE 10 MG/2 ML VIAL IV SCH (19:22)
[2020-10-19] MEDS ORDERED: KETOROLAC 15 MG/1 ML VIAL IV PRN (19:32)
[2020-10-19] MEDS: ONDANSETRON 4 MG/2 ML VIAL IV PRN (19:48)
[2020-10-19] MEDS ORDERED: PROMETHAZINE INJ 25 MG in SODIUM CHLORIDE 0.9% 50 ML IV PRN (21:45)
[2020-10-19] MEDS: PROMETHAZINE 25 MG/1 ML VIAL IM PRN (22:39)
[2020-10-19] MEDS: MORPHINE 4 MG/1 ML VIAL IV PRN (22:40)
[2020-10-20] MEDS: METOCLOPRAMIDE 10 MG/2 ML VIAL IV SCH ×5 (01:15→23:44)
[2020-10-20 05:57] LABS: Basophils # 0.1 10*3/uL (0.0-0.2); Basophils % 0.7 % (0.0-0.8); Eosinophils # 0.1 10*3/uL (0.0-0.87); Eosinophils % 1.4 % (0.00-10.9); Hematocrit 32.1 VOL% (35.7-47.0); Immature Granulocytes % 0.3 %; Immature Granulocytes Absolute 0.03 #; Lymphocytes # 1.9 10*3/uL (1.4-4.0); Lymphocytes % 21.1 % (21.3-54.2); Mean Corpuscular HGB Conc 30.8 GM/DL (32-36); Mean Corpuscular Volume 83.8 FL (87-102); Mean Platelet Volume 10.7 FL (9.6-12.0); Monocytes % 6.2 % (1.7-12.7); Neutrophils % 70.3 % (38.7-73.9); Platelet Count 366 T/CUMM (130-400); Red Cell Distribution Width 15.1 % (9.3-17.3); White Blood Count 8.8 T/CUMM (4-12)
[2020-10-20 05:58] LABS: Albumin 1.3 G/DL (3.4-5.0); Bilirubin,Total 0.5 MG/DL (0.2-1.0); Calcium 6.9 MG/DL (8.5-10.1); Osmolality,Calculated 295.4 MOS/KG (273-304); Potassium 3.9 MMOL/L (3.5-5.1); Total Protein 5.8 G/DL (6.4-8.3)
[2020-10-20 05:59] LABS: Hemoglobin 9.9 GM/DL (12.0-16.0); Red Blood Count 3.83 MC/CUMM (3.8-5.5)
[2020-10-20] MEDS: INSULIN REGULAR 100 UNIT/ML SUBCUT SCH ×2 (07:24→16:45)
[2020-10-20] MEDS ORDERED: INSULIN GLARGINE 100 UNIT/ML SUBCUT SCH (09:00)
[2020-10-20] MEDS: amLODIPine 5 MG TABLET PO SCH (09:29)
[2020-10-20] MEDS: PANTOPRAZOLE 40 MG VIAL IV SCH (09:29)
[2020-10-20] MEDS: FUROSEMIDE 40 MG/4 ML VIAL IV SCH (09:36)
[2020-10-20] MEDS: MORPHINE 4 MG/1 ML VIAL IV PRN ×2 (10:01→19:35)
[2020-10-20] MEDS: SODIUM CHLORIDE 0.9% 1,000 ML IV SCH ×2 (12:31→19:37)
[2020-10-20] MEDS: ENOXAPARIN 30 MG/0.3 ML SYRINGE SUBCUT SCH (18:15)
[2020-10-20] MEDS: ONDANSETRON 4 MG/2 ML VIAL IV PRN (19:36)
[2020-10-21] MEDS: MORPHINE 4 MG/1 ML VIAL IV PRN ×2 (03:21→11:57)
[2020-10-21] MEDS: SODIUM CHLORIDE 0.9% 1,000 ML IV SCH (03:48)
[2020-10-21] MEDS: METOCLOPRAMIDE 10 MG/2 ML VIAL IV SCH ×4 (06:00→23:50)
[2020-10-21 06:08] LABS: Basophils # 0.1 10*3/uL (0.0-0.2); Basophils % 0.7 % (0.0-0.8); Eosinophils # 0.2 10*3/uL (0.0-0.87); Eosinophils % 2.5 % (0.00-10.9); Hematocrit 30.4 VOL% (35.7-47.0); Hemoglobin 9.6 GM/DL (12.0-16.0); Immature Granulocytes % 0.4 %; Immature Granulocytes Absolute 0.04 #; Lymphocytes # 2.2 10*3/uL (1.4-4.0); Lymphocytes % 24.5 % (21.3-54.2); Mean Corpuscular HGB Conc 31.6 GM/DL (32-36); Neutrophils % 62.9 % (38.7-73.9); Platelet Count 361 T/CUMM (130-400); Red Blood Count 3.62 MC/CUMM (3.8-5.5); Red Cell Distribution Width 15.1 % (9.3-17.3); White Blood Count 9.1 T/CUMM (4-12)
[2020-10-21 06:36] LABS: Calcium 6.6 MG/DL (8.5-10.1); Osmolality,Calculated 293.4 MOS/KG (273-304); Potassium 4.1 MMOL/L (3.5-5.1)
[2020-10-21] MEDS: INSULIN REGULAR 100 UNIT/ML SUBCUT SCH ×2 (07:53→17:18)
[2020-10-21] MEDS: amLODIPine 5 MG TABLET PO SCH (09:24)
[2020-10-21] MEDS: PANTOPRAZOLE 40 MG VIAL IV SCH (09:24)
[2020-10-21] MEDS ORDERED: ALBUMIN 25% 50 GM in PREMIX 1 EACH IV ONE (12:00)
[2020-10-21] MEDS: SODIUM CHLORIDE 0.45% 1,000 ML IV SCH ×2 (12:04→23:10)
[2020-10-21] MEDS: ONDANSETRON 4 MG/2 ML VIAL IV PRN ×2 (17:16→21:37)
[2020-10-21] MEDS: ENOXAPARIN 30 MG/0.3 ML SYRINGE SUBCUT SCH (17:21)
[2020-10-21] MEDS: hydrALAZINE 20 MG/1 ML VIAL IV PRN (21:23)
[2020-10-22] MEDS: ONDANSETRON 4 MG/2 ML VIAL IV PRN ×3 (01:10→10:08)
[2020-10-22] MEDS: PROMETHAZINE 25 MG/1 ML VIAL IM PRN ×4 (02:42→21:21)
[2020-10-22] MEDS: METOCLOPRAMIDE 10 MG/2 ML VIAL IV SCH ×3 (05:30→17:43)
[2020-10-22] MEDS: hydrALAZINE 20 MG/1 ML VIAL IV PRN (05:31)
[2020-10-22 06:22] LABS: Osmolality,Calculated 295.3 MOS/KG (273-304); Potassium 3.8 MMOL/L (3.5-5.1)
[2020-10-22] MEDS: SODIUM CHLORIDE 0.45% 1,000 ML IV SCH (07:42)
[2020-10-22] MEDS: PANTOPRAZOLE 40 MG VIAL IV SCH ×2 (10:07→21:21)
[2020-10-22] MEDS: INSULIN REGULAR 100 UNIT/ML SUBCUT SCH ×2 (10:16→15:36)
[2020-10-22] MEDS: amLODIPine 5 MG TABLET PO SCH ×2 (10:17→10:20)
[2020-10-22] MEDS ORDERED: PROCHLORPERAZINE 5 MG TABLET PO PRN (12:32)
[2020-10-22] MEDS: ENOXAPARIN 30 MG/0.3 ML SYRINGE SUBCUT SCH (17:43)
[2020-10-23] MEDS: METOCLOPRAMIDE 10 MG/2 ML VIAL IV SCH ×4 (00:49→17:50)
[2020-10-23] MEDS: hydrALAZINE 20 MG/1 ML VIAL IV PRN (04:29)
[2020-10-23] MEDS: PROMETHAZINE 25 MG/1 ML VIAL IM PRN ×2 (04:29→23:33)
[2020-10-23] MEDS: SODIUM CHLORIDE 0.45% 1,000 ML IV SCH ×2 (04:33→19:08)
[2020-10-23 05:51] LABS: Osmolality,Calculated 289.5 MOS/KG (273-304); Potassium 3.7 MMOL/L (3.5-5.1)
[2020-10-23 05:53] LABS: Alanine Aminotransferase 13 U/L (13-56); Albumin 1.7 G/DL (3.4-5.0); Alkaline Phosphatase 282 U/L (45-117); Aspartate Amino Transferase 14 U/L (0-37); Bilirubin,Direct < 0.100 MG/DL (0.0-0.20); Bilirubin,Indirect 0.3 MG/DL (0.0-1.0)
[2020-10-23] MEDS ORDERED: FLUCONAZOLE 150 MG TABLET PO ONE (08:00)
[2020-10-23] MEDS: INSULIN REGULAR 100 UNIT/ML SUBCUT SCH ×2 (10:33→16:55)
[2020-10-23] MEDS: amLODIPine 5 MG TABLET PO SCH (10:34)
[2020-10-23] MEDS: PANTOPRAZOLE 40 MG VIAL IV SCH ×2 (10:35→21:02)
[2020-10-23] MEDS: ENOXAPARIN 30 MG/0.3 ML SYRINGE SUBCUT SCH (17:49)
[2020-10-24] MEDS: METOCLOPRAMIDE 10 MG/2 ML VIAL IV SCH ×2 (02:14→05:51)
[2020-10-24 05:39] LABS: Basophils # 0.1 10*3/uL (0.0-0.2); Basophils % 0.7 % (0.0-0.8); Eosinophils # 0.3 10*3/uL (0.0-0.87); Hematocrit 35.1 VOL% (35.7-47.0); Hemoglobin 10.9 GM/DL (12.0-16.0); Immature Granulocytes % 0.3 %; Immature Granulocytes Absolute 0.03 #; Lymphocytes # 2.3 10*3/uL (1.4-4.0); Lymphocytes % 25.1 % (21.3-54.2); Mean Corpuscular HGB Conc 31.1 GM/DL (32-36); Mean Platelet Volume 9.8 FL (9.6-12.0); Monocytes % 8.2 % (1.7-12.7); Neutrophils % 62.7 % (38.7-73.9); Platelet Count 420 T/CUMM (130-400); Red Blood Count 4.23 MC/CUMM (3.8-5.5); Red Cell Distribution Width 14.7 % (9.3-17.3)
[2020-10-24] MEDS: PROMETHAZINE 25 MG/1 ML VIAL IM PRN ×3 (05:50→21:13)
[2020-10-24] MEDS: POLYETHYLENE GLYCOL POWDER 17 GM PACK PO SCH ×3 (10:09→21:12)
[2020-10-24] MEDS: amLODIPine 5 MG TABLET PO SCH (10:10)
[2020-10-24] MEDS: ACETAMINOPHEN 500 MG TABLET PO PRN ×2 (10:10→21:12)
[2020-10-24] MEDS: PANTOPRAZOLE 40 MG TABLET PO SCH ×2 (10:11→17:54)
[2020-10-24] MEDS ORDERED: METOCLOPRAMIDE 10 MG/10 ML UDCUP PO SCH (11:30)
[2020-10-24 13:02] LABS: Calcium 7.5 MG/DL (8.5-10.1); Osmolality,Calculated 286.7 MOS/KG (273-304); Potassium 3.6 MMOL/L (3.5-5.1)
[2020-10-24] MEDS ORDERED: DEXTROSE 50% 25 GM/50 ML VIAL IV PRN (16:15)
[2020-10-24] MEDS: ENOXAPARIN 30 MG/0.3 ML SYRINGE SUBCUT SCH (17:55)
[2020-10-24] MEDS: INSULIN REGULAR 100 UNIT/ML SUBCUT SCH ×2 (17:56→20:26)
[2020-10-24] MEDS: ERYTHROMYCIN INJ 250 MG in SODIUM CHLORIDE 0.9% 100 ML IV SCH ×2 (17:56→21:11)
[2020-10-24] MEDS: hydrALAZINE 20 MG/1 ML VIAL IV PRN (18:01)
[2020-10-25] MEDS: ERYTHROMYCIN INJ 250 MG in SODIUM CHLORIDE 0.9% 100 ML IV SCH ×4 (03:29→21:10)
[2020-10-25] MEDS: PROMETHAZINE 25 MG/1 ML VIAL IM PRN ×3 (04:42→21:09)
[2020-10-25 06:01] LABS: Calcium 7.3 MG/DL (8.5-10.1); Osmolality,Calculated 289.4 MOS/KG (273-304); Potassium 3.5 MMOL/L (3.5-5.1)
[2020-10-25 06:35] LABS: Hepatitis B Core IgM Quant 0.13 Index; Hepatitis B Surface Ag Quant 0.52 Index; Hepatitis B Surface Ag Result Non-Reactive (NonReactive); Hepatitis C Virus Ab Quant < 0.02 Index; Hepatitis C Virus Ab Result Non-Reactive (NonReactive)
[2020-10-25] MEDS: PANTOPRAZOLE 40 MG TABLET PO SCH ×2 (10:06→17:25)
[2020-10-25] MEDS: amLODIPine 5 MG TABLET PO SCH (10:06)
[2020-10-25] MEDS: POLYETHYLENE GLYCOL POWDER 17 GM PACK PO SCH ×3 (10:07→21:10)
[2020-10-25] MEDS: hydrALAZINE 20 MG/1 ML VIAL IV PRN (12:42)
[2020-10-25] MEDS ORDERED: traMADol 50 MG TABLET PO ONE (15:05)
[2020-10-25] MEDS: INSULIN REGULAR 100 UNIT/ML SUBCUT SCH ×2 (16:29→17:24)
[2020-10-25] MEDS: ENOXAPARIN 30 MG/0.3 ML SYRINGE SUBCUT SCH (17:33)
[2020-10-26] MEDS: ACETAMINOPHEN 500 MG TABLET PO PRN ×2 (02:22→16:58)
[2020-10-26] MEDS: ERYTHROMYCIN INJ 250 MG in SODIUM CHLORIDE 0.9% 100 ML IV SCH ×4 (03:52→21:04)
[2020-10-26 05:43] LABS: Basophils # 0.1 10*3/uL (0.0-0.2); Basophils % 0.7 % (0.0-0.8); Eosinophils # 0.2 10*3/uL (0.0-0.87); Eosinophils % 3.3 % (0.00-10.9); Hemoglobin 9.4 GM/DL (12.0-16.0); Immature Granulocytes % 0.3 %; Immature Granulocytes Absolute 0.02 #; Lymphocytes # 1.9 10*3/uL (1.4-4.0); Lymphocytes % 26.7 % (21.3-54.2); Mean Corpuscular HGB Conc 32.4 GM/DL (32-36); Mean Platelet Volume 9.9 FL (9.6-12.0); Monocytes % 8.1 % (1.7-12.7); Neutrophils % 60.9 % (38.7-73.9); Platelet Count 330 T/CUMM (130-400); Red Blood Count 3.58 MC/CUMM (3.8-5.5); Red Cell Distribution Width 14.7 % (9.3-17.3); White Blood Count 7.3 T/CUMM (4-12)
[2020-10-26] MEDS: amLODIPine 5 MG TABLET PO SCH (09:02)
[2020-10-26] MEDS: PROMETHAZINE 25 MG/1 ML VIAL IM PRN (09:02)
[2020-10-26] MEDS: hydrALAZINE 20 MG/1 ML VIAL IV PRN (09:02)
[2020-10-26] MEDS: INSULIN REGULAR 100 UNIT/ML SUBCUT SCH ×2 (09:03→17:02)
[2020-10-26] MEDS: PANTOPRAZOLE 40 MG TABLET PO SCH ×2 (09:03→16:58)
[2020-10-26] MEDS: POLYETHYLENE GLYCOL POWDER 17 GM PACK PO SCH ×2 (09:12→21:07)
[2020-10-26] MEDS: PROMETHAZINE 25 MG TABLET PO PRN ×2 (13:47→21:06)
[2020-10-26] MEDS: carvediloL 6.25 MG TABLET PO SCH ×2 (13:47→21:06)
[2020-10-26] MEDS: ENOXAPARIN 30 MG/0.3 ML SYRINGE SUBCUT SCH (17:01)
[2020-10-26] MEDS: traMADol 50 MG TABLET PO PRN (21:06)
[2020-10-26] MEDS: SODIUM CHLORIDE 0.45% 1,000 ML IV SCH (21:11)
[2020-10-27] MEDS: traMADol 50 MG TABLET PO PRN ×4 (01:15→20:38)
[2020-10-27] MEDS: ERYTHROMYCIN INJ 250 MG in SODIUM CHLORIDE 0.9% 100 ML IV SCH ×4 (04:30→22:56)
[2020-10-27] MEDS: PROMETHAZINE 25 MG TABLET PO PRN ×3 (06:58→20:38)
[2020-10-27 08:36] LABS: Calcium 7.5 MG/DL (8.5-10.1); Osmolality,Calculated 286.7 MOS/KG (273-304); Potassium 3.3 MMOL/L (3.5-5.1)
[2020-10-27] MEDS: PANTOPRAZOLE 40 MG TABLET PO SCH ×2 (09:08→16:45)
[2020-10-27] MEDS: carvediloL 6.25 MG TABLET PO SCH ×2 (09:08→20:38)
[2020-10-27] MEDS: POLYETHYLENE GLYCOL POWDER 17 GM PACK PO SCH ×2 (09:09→20:40)
[2020-10-27] MEDS: amLODIPine 5 MG TABLET PO SCH (09:09)
[2020-10-27 09:15] LABS: Basophils # 0.1 10*3/uL (0.0-0.2); Basophils % 0.6 % (0.0-0.8); Eosinophils # 0.3 10*3/uL (0.0-0.87); Eosinophils % 3.6 % (0.00-10.9); Hematocrit 31.3 VOL% (35.7-47.0); Hemoglobin 9.8 GM/DL (12.0-16.0); Immature Granulocytes % 0.5 %; Immature Granulocytes Absolute 0.04 #; Lymphocytes # 1.7 10*3/uL (1.4-4.0); Lymphocytes % 21.4 % (21.3-54.2); Mean Corpuscular HGB Conc 31.3 GM/DL (32-36); Mean Corpuscular Volume 82.8 FL (87-102); Mean Platelet Volume 9.9 FL (9.6-12.0); Monocytes % 10.1 % (1.7-12.7); Neutrophils % 63.8 % (38.7-73.9); Platelet Count 355 T/CUMM (130-400); Red Blood Count 3.78 MC/CUMM (3.8-5.5); Red Cell Distribution Width 14.7 % (9.3-17.3)
[2020-10-27] MEDS: INSULIN REGULAR 100 UNIT/ML SUBCUT SCH ×2 (10:02→16:44)
[2020-10-27] MEDS: POTASSIUM CHLORIDE RIDER 10 MEQ in PREMIX 1 EACH IV SCH ×3 (16:44→20:44)
[2020-10-27] MEDS: ENOXAPARIN 30 MG/0.3 ML SYRINGE SUBCUT SCH (17:55)
[2020-10-27] MEDS: SODIUM CHLORIDE 0.45% 1,000 ML IV SCH (20:40)
[2020-10-28] MEDS ORDERED: POTASSIUM CHLORIDE RIDER 10 MEQ in PREMIX 1 EACH IV SCH (00:30)
[2020-10-28] MEDS: ERYTHROMYCIN INJ 250 MG in SODIUM CHLORIDE 0.9% 100 ML IV SCH ×4 (04:20→21:51)
[2020-10-28] MEDS: PROMETHAZINE 25 MG TABLET PO PRN ×2 (05:01→19:45)
[2020-10-28] MEDS: hydrALAZINE 20 MG/1 ML VIAL IV PRN (05:02)
[2020-10-28] MEDS: traMADol 50 MG TABLET PO PRN ×3 (05:02→21:52)
[2020-10-28] MEDS: PANTOPRAZOLE 40 MG TABLET PO SCH ×2 (08:25→18:30)
[2020-10-28] MEDS: POLYETHYLENE GLYCOL POWDER 17 GM PACK PO SCH ×2 (08:25→22:41)
[2020-10-28] MEDS: amLODIPine 5 MG TABLET PO SCH (08:30)
[2020-10-28] MEDS: carvediloL 6.25 MG TABLET PO SCH ×2 (08:30→21:52)
[2020-10-28] MEDS: INSULIN REGULAR 100 UNIT/ML SUBCUT SCH ×2 (08:33→16:47)
[2020-10-28] MEDS: amLODIPine 10 MG TABLET PO SCH (16:47)
[2020-10-28] MEDS: FUROSEMIDE 40 MG/4 ML VIAL IV SCH (16:47)
[2020-10-28] MEDS: ENOXAPARIN 30 MG/0.3 ML SYRINGE SUBCUT SCH (18:31)
[2020-10-28] MEDS: POTASSIUM CHLORIDE 20 MEQ TABLET PO SCH (21:52)
[2020-10-29] MEDS: PROMETHAZINE 25 MG TABLET PO PRN ×2 (00:30→04:11)
[2020-10-29] MEDS: SODIUM CHLORIDE 0.45% 1,000 ML IV SCH (00:31)
[2020-10-29] MEDS: traMADol 50 MG TABLET PO PRN ×3 (02:09→20:59)
[2020-10-29 03:50] LABS: ABG Base Excess -8.5 MMOL/L (-2.5-2.5); ABG HCO3 16.5 MMOL/L (20-26); ABG Oxygen Saturation 96.2 % (95-100); ABG PCO2 31.4 MM HG (35-48); ABG PH 7.338 (7.35-7.45); ABG PO2 93.5 MM HG (80-95); ABG TCO2 17.4 MMOL/L (23-27)
[2020-10-29] MEDS: ERYTHROMYCIN INJ 250 MG in SODIUM CHLORIDE 0.9% 100 ML IV SCH ×4 (04:12→23:27)
[2020-10-29 05:24] LABS: Basophils # 0.1 10*3/uL (0.0-0.2); Basophils % 0.9 % (0.0-0.8); Eosinophils # 0.2 10*3/uL (0.0-0.87); Hematocrit 29.5 VOL% (35.7-47.0); Hemoglobin 9.6 GM/DL (12.0-16.0); Immature Granulocytes % 0.6 %; Immature Granulocytes Absolute 0.03 #; Lymphocytes # 0.9 10*3/uL (1.4-4.0); Lymphocytes % 17.1 % (21.3-54.2); Mean Corpuscular HGB Conc 32.5 GM/DL (32-36); Mean Corpuscular Volume 81.5 FL (87-102); Mean Platelet Volume 10.3 FL (9.6-12.0); Neutrophils % 65.4 % (38.7-73.9); Platelet Count 294 T/CUMM (130-400); Red Blood Count 3.62 MC/CUMM (3.8-5.5); Red Cell Distribution Width 14.6 % (9.3-17.3); White Blood Count 5.3 T/CUMM (4-12)
[2020-10-29 05:58] LABS: Calcium 7.3 MG/DL (8.5-10.1); Osmolality,Calculated 284.5 MOS/KG (273-304); Potassium 3.7 MMOL/L (3.5-5.1)
[2020-10-29 06:00] LABS: Uric Acid 3.9 MG/DL (2.6-6.0)
[2020-10-29] MEDS: FUROSEMIDE 40 MG/4 ML VIAL IV SCH (09:32)
[2020-10-29] MEDS: INSULIN REGULAR 100 UNIT/ML SUBCUT SCH ×2 (10:52→18:06)
[2020-10-29] MEDS: amLODIPine 10 MG TABLET PO SCH (13:50)
[2020-10-29] MEDS: PANTOPRAZOLE 40 MG TABLET PO SCH ×2 (13:50→18:08)
[2020-10-29] MEDS: POTASSIUM CHLORIDE 20 MEQ TABLET PO SCH ×2 (13:50→21:00)
[2020-10-29] MEDS: POLYETHYLENE GLYCOL POWDER 17 GM PACK PO SCH (13:50)
[2020-10-29] MEDS: carvediloL 6.25 MG TABLET PO SCH ×2 (13:50→21:00)
[2020-10-29] MEDS: POTASSIUM CHLORIDE RIDER 10 MEQ in PREMIX 1 EACH IV SCH (14:07)
[2020-10-29] MEDS: PROMETHAZINE INJ 25 MG in SODIUM CHLORIDE 0.9% 50 ML IV SCH (18:07)
[2020-10-29] MEDS: hydrALAZINE 20 MG/1 ML VIAL IV PRN (19:29)
[2020-10-30 01:36] LABS: Basophils % 0.6 % (0.0-0.8); Eosinophils # 0.1 10*3/uL (0.0-0.87); Eosinophils % 1.9 % (0.00-10.9); Hematocrit 30.4 VOL% (35.7-47.0); Hemoglobin 9.8 GM/DL (12.0-16.0); Immature Granulocytes % 0.6 %; Immature Granulocytes Absolute 0.03 #; Lymphocytes # 0.8 10*3/uL (1.4-4.0); Lymphocytes % 15.4 % (21.3-54.2); Mean Corpuscular HGB Conc 32.2 GM/DL (32-36); Mean Corpuscular Volume 81.9 FL (87-102); Mean Platelet Volume 10.1 FL (9.6-12.0); Neutrophils % 68.5 % (38.7-73.9); Platelet Count 240 T/CUMM (130-400); Red Blood Count 3.71 MC/CUMM (3.8-5.5); Red Cell Distribution Width 14.7 % (9.3-17.3); White Blood Count 5.4 T/CUMM (4-12)
[2020-10-30 01:37] LABS: PT Patient Result 10.6 SECS (9.8-11.9); Partial Thromboplastin Time 31.3 SECS (23.9-33.8)
[2020-10-30 01:51] LABS: Alanine Aminotransferase 13 U/L (13-56); Albumin 1.2 G/DL (3.4-5.0); Alkaline Phosphatase 328 U/L (45-117); Aspartate Amino Transferase 18 U/L (0-37); Bilirubin,Total < 0.39 MG/DL (0.2-1.0); Blood Urea Nitrogen 27 MG/DL (7-18); Calcium 7.3 MG/DL (8.5-10.1); Carbon Dioxide 16 MMOL/L (21-32); Estimated Glom Filtration Rate 24 ML/MIN; Glucose 115 MG/DL (74-106); Osmolality,Calculated 280.7 MOS/KG (273-304); Potassium 3.9 MMOL/L (3.5-5.1); Sodium 138 MMOL/L (136-145); Total Protein 5.9 G/DL (6.4-8.3)
[2020-10-30 01:53] LABS: Alanine Aminotransferase 13 U/L (13-56); Albumin 1.3 G/DL (3.4-5.0); Alkaline Phosphatase 327 U/L (45-117); Aspartate Amino Transferase 17 U/L (0-37); Bilirubin,Direct < 0.050 MG/DL (0.0-0.20)
[2020-10-30] MEDS: traMADol 50 MG TABLET PO PRN ×3 (02:04→22:56)
[2020-10-30] MEDS: PROMETHAZINE INJ 25 MG in SODIUM CHLORIDE 0.9% 50 ML IV SCH ×3 (02:04→13:23)
[2020-10-30] MEDS: cefTRIAXone 2,000 MG in SYRINGE 1 EACH IV SCH (02:12)
[2020-10-30] MEDS: ACETAMINOPHEN 500 MG TABLET PO PRN ×2 (02:21→21:17)
[2020-10-30] MEDS: POLYETHYLENE GLYCOL POWDER 17 GM PACK PO SCH ×3 (02:31→22:43)
[2020-10-30 03:29] LABS: Protein/Creatinine Ratio,Urine 11.9 RATIO
[2020-10-30 03:37] LABS: Bilirubin,Urine Negative (Negative); Blood, Urine Small mg/dL (Negative); Glucose,Urine (UA) >=500 mg/dL (Negative); Granular Casts,Urine 2 /LPF (0-1); Hyaline Casts,Urine 2 /LPF (0-3); Ketones,Urine 5 mg/dL (Negative); Nitrite,Urine Negative (Negative); Protein,Urine >=500 MG/DL; RBC,Urine 5 /HPF (0-4); Squamous Epithelial Cell,Urine Occasional /HPF (0-10); Urine Appearance Slightly Hazy (Clear); Urine Color Yellow (Yellow); Urine Specific Gravity 1.013 (1.001-1.035); Urine Urobilinogen < 2.0 EU/DL (0.2-1.0); WBC,Urine 2 /HPF (0-6)
[2020-10-30] MEDS: ERYTHROMYCIN INJ 250 MG in SODIUM CHLORIDE 0.9% 100 ML IV SCH ×4 (05:03→22:56)
[2020-10-30] MEDS: INSULIN REGULAR 100 UNIT/ML SUBCUT SCH ×2 (08:58→16:24)
[2020-10-30] MEDS: amLODIPine 10 MG TABLET PO SCH (08:59)
[2020-10-30] MEDS: PANTOPRAZOLE 40 MG TABLET PO SCH ×2 (08:59→17:10)
[2020-10-30] MEDS: carvediloL 6.25 MG TABLET PO SCH ×2 (09:00→21:17)
[2020-10-30] MEDS: FUROSEMIDE 40 MG/4 ML VIAL IV SCH (09:00)
[2020-10-30] MEDS: POTASSIUM CHLORIDE 20 MEQ TABLET PO SCH ×2 (09:00→21:17)
[2020-10-30] MEDS ORDERED: MORPHINE 4 MG/1 ML VIAL IV ONE (13:37)
[2020-10-31] MEDS: traMADol 50 MG TABLET PO PRN ×4 (05:19→21:54)
[2020-10-31] MEDS: ERYTHROMYCIN INJ 250 MG in SODIUM CHLORIDE 0.9% 100 ML IV SCH ×3 (05:20→18:23)
[2020-10-31 05:41] LABS: Basophils % 0.6 % (0.0-0.8); Eosinophils # 0.1 10*3/uL (0.0-0.87); Eosinophils % 1.2 % (0.00-10.9); Hematocrit 33.1 VOL% (35.7-47.0); Hemoglobin 10.2 GM/DL (12.0-16.0); Immature Granulocytes % 0.6 %; Immature Granulocytes Absolute 0.04 #; Lymphocytes # 1.3 10*3/uL (1.4-4.0); Mean Corpuscular HGB Conc 30.8 GM/DL (32-36); Mean Corpuscular Volume 84.9 FL (87-102); Mean Platelet Volume 10.8 FL (9.6-12.0); Monocytes % 9.5 % (1.7-12.7); Neutrophils % 69.1 % (38.7-73.9); Platelet Count 262 T/CUMM (130-400); Red Cell Distribution Width 14.6 % (9.3-17.3); White Blood Count 6.8 T/CUMM (4-12)
[2020-10-31 05:45] LABS: Alanine Aminotransferase 15 U/L (13-56); Albumin 1.3 G/DL (3.4-5.0); Alkaline Phosphatase 374 U/L (45-117); Aspartate Amino Transferase 27 U/L (0-37); Bilirubin,Total < 0.39 MG/DL (0.2-1.0); Blood Urea Nitrogen 28 MG/DL (7-18); Calcium 7.8 MG/DL (8.5-10.1); Carbon Dioxide 12 MMOL/L (21-32); Estimated Glom Filtration Rate 24 ML/MIN; Glucose 108 MG/DL (74-106); Osmolality,Calculated 281.7 MOS/KG (273-304); Sodium 138 MMOL/L (136-145); Total Protein 6.1 G/DL (6.4-8.3)
[2020-10-31] MEDS: cefTRIAXone 2,000 MG in SYRINGE 1 EACH IV SCH (07:11)
[2020-10-31] MEDS: INSULIN REGULAR 100 UNIT/ML SUBCUT SCH ×2 (07:23→16:59)
[2020-10-31] MEDS: carvediloL 6.25 MG TABLET PO SCH ×2 (08:44→21:53)
[2020-10-31] MEDS: metOLazone 5 MG TABLET PO SCH (08:44)
[2020-10-31] MEDS: amLODIPine 10 MG TABLET PO SCH (08:44)
[2020-10-31] MEDS: FUROSEMIDE 40 MG/4 ML VIAL IV SCH ×2 (08:44→17:30)
[2020-10-31] MEDS: POTASSIUM CHLORIDE 20 MEQ TABLET PO SCH ×2 (08:44→21:54)
[2020-10-31] MEDS: PANTOPRAZOLE 40 MG TABLET PO SCH ×2 (08:44→17:34)
[2020-10-31] MEDS: POLYETHYLENE GLYCOL POWDER 17 GM PACK PO SCH ×2 (08:45→23:09)
[2020-10-31] MEDS: SODIUM CHLORIDE 0.45% 1,000 ML IV SCH (10:00)
[2020-10-31] MEDS: BENZONATATE 100 MG CAPSULE PO PRN (14:54)
[2020-10-31] MEDS ORDERED: ALBUMIN 25% 50 GM in PREMIX 1 EACH IV ONE (15:00)
[2020-10-31] MEDS: ENOXAPARIN 30 MG/0.3 ML SYRINGE SUBCUT SCH (17:31)
[2020-10-31] MEDS ORDERED: PROMETHAZINE INJ 25 MG in SODIUM CHLORIDE 0.9% 50 ML IV ONE (21:41)
[2020-11-01] MEDS: cefTRIAXone 2,000 MG in SYRINGE 1 EACH IV SCH (01:14)
[2020-11-01] MEDS: BENZONATATE 100 MG CAPSULE PO PRN ×3 (01:27→20:39)
[2020-11-01] MEDS: ACETAMINOPHEN 500 MG TABLET PO PRN ×2 (01:27→15:35)
[2020-11-01] MEDS: ERYTHROMYCIN INJ 250 MG in SODIUM CHLORIDE 0.9% 100 ML IV SCH ×5 (01:47→22:53)
[2020-11-01] MEDS: traMADol 50 MG TABLET PO PRN ×3 (04:27→23:56)
[2020-11-01 05:42] LABS: Basophils % 0.4 % (0.0-0.8); Eosinophils % 0.3 % (0.00-10.9); Hematocrit 30.6 VOL% (35.7-47.0); Hemoglobin 9.7 GM/DL (12.0-16.0); Immature Granulocytes % 0.4 %; Immature Granulocytes Absolute 0.03 #; Lymphocytes # 1.5 10*3/uL (1.4-4.0); Lymphocytes % 20.1 % (21.3-54.2); Mean Corpuscular HGB Conc 31.7 GM/DL (32-36); Mean Platelet Volume 10.1 FL (9.6-12.0); Monocytes % 6.9 % (1.7-12.7); Neutrophils % 71.9 % (38.7-73.9); Platelet Count 207 T/CUMM (130-400); Red Blood Count 3.73 MC/CUMM (3.8-5.5); Red Cell Distribution Width 14.5 % (9.3-17.3); White Blood Count 7.2 T/CUMM (4-12)
[2020-11-01 06:02] LABS: Albumin 1.6 G/DL (3.4-5.0); Bilirubin,Total 0.4 MG/DL (0.2-1.0); Calcium 7.5 MG/DL (8.5-10.1); Osmolality,Calculated 283.7 MOS/KG (273-304); Potassium 3.7 MMOL/L (3.5-5.1); Total Protein 5.7 G/DL (6.4-8.3)
[2020-11-01] MEDS: metOLazone 5 MG TABLET PO SCH (09:15)
[2020-11-01] MEDS: carvediloL 6.25 MG TABLET PO SCH ×2 (09:15→20:39)
[2020-11-01] MEDS: amLODIPine 10 MG TABLET PO SCH (09:15)
[2020-11-01] MEDS: INSULIN REGULAR 100 UNIT/ML SUBCUT SCH ×2 (09:52→17:04)
[2020-11-01] MEDS: FUROSEMIDE 40 MG/4 ML VIAL IV SCH ×2 (09:52→15:35)
[2020-11-01] MEDS: PHENOL 1.4% THROAT SPRAY 177 ML BOTTLE PO PRN (12:22)
[2020-11-01] MEDS: PROMETHAZINE INJ 25 MG in SODIUM CHLORIDE 0.9% 50 ML IV PRN (12:22)
[2020-11-01] MEDS: POLYETHYLENE GLYCOL POWDER 17 GM PACK PO SCH (13:35)
[2020-11-01] MEDS: POTASSIUM CHLORIDE 20 MEQ TABLET PO SCH ×2 (13:35→20:39)
[2020-11-01] MEDS: PANTOPRAZOLE 40 MG TABLET PO SCH ×2 (13:35→15:35)
[2020-11-01] MEDS ORDERED: HYDROmorphone 2 MG/1 ML VIAL IV ONE ×2 (14:54)
[2020-11-01 17:52] LABS: Bacteria,Urine Few /HPF (Few); Bilirubin,Urine Negative (Negative); Blood, Urine Moderate mg/dL (Negative); Glucose,Urine (UA) 150 mg/dL (Negative); Ketones,Urine 20 mg/dL (Negative); Mucus,Urine Occasional /LPF (Occasional); Nitrite,Urine Negative (Negative); Protein,Urine >=500 MG/DL; RBC,Urine 2 /HPF (0-4); Squamous Epithelial Cell,Urine Occasional /HPF (0-10); Urine Appearance Slightly Hazy (Clear); Urine Color Yellow (Yellow); Urine Specific Gravity 1.009 (1.001-1.035); Urine Urobilinogen < 2.0 EU/DL (0.2-1.0); WBC,Urine 2 /HPF (0-6)
[2020-11-01] MEDS: ALBUTEROL/IPRATROPIUM 3 ML NEB RESP TX PRN (20:27)
[2020-11-02] MEDS: ALBUTEROL/IPRATROPIUM 3 ML NEB RESP TX PRN ×2 (01:00→09:30)
[2020-11-02] MEDS: PROMETHAZINE INJ 25 MG in SODIUM CHLORIDE 0.9% 50 ML IV PRN (01:12)
[2020-11-02] MEDS: cefTRIAXone 2,000 MG in SYRINGE 1 EACH IV SCH (01:12)
[2020-11-02] MEDS: PHENOL 1.4% THROAT SPRAY 177 ML BOTTLE PO PRN (02:00)
[2020-11-02] MEDS: traMADol 50 MG TABLET PO PRN ×4 (03:52→23:17)
[2020-11-02] MEDS: BENZONATATE 100 MG CAPSULE PO PRN ×2 (05:00→21:31)
[2020-11-02] MEDS: ERYTHROMYCIN INJ 250 MG in SODIUM CHLORIDE 0.9% 100 ML IV SCH ×4 (05:00→23:17)
[2020-11-02] MEDS: ACETAMINOPHEN 500 MG TABLET PO PRN (05:11)
[2020-11-02] MEDS ORDERED: ceFAZolin 1,000 MG in SYRINGE 1 EACH IV ONE (06:30)
[2020-11-02 07:01] LABS: Basophils % 0.4 % (0.0-0.8); Eosinophils % 0.4 % (0.00-10.9); Hemoglobin 10.1 GM/DL (12.0-16.0); Immature Granulocytes % 0.4 %; Immature Granulocytes Absolute 0.03 #; Lymphocytes # 1.2 10*3/uL (1.4-4.0); Lymphocytes % 15.9 % (21.3-54.2); Mean Corpuscular HGB Conc 32.6 GM/DL (32-36); Mean Corpuscular Volume 80.9 FL (87-102); Mean Platelet Volume 10.6 FL (9.6-12.0); Monocytes % 3.7 % (1.7-12.7); Neutrophils % 79.2 % (38.7-73.9); Platelet Count 188 T/CUMM (130-400); Red Blood Count 3.83 MC/CUMM (3.8-5.5); Red Cell Distribution Width 14.6 % (9.3-17.3); White Blood Count 7.8 T/CUMM (4-12)
[2020-11-02 07:27] LABS: Alanine Aminotransferase 12 U/L (13-56); Albumin 1.5 G/DL (3.4-5.0); Alkaline Phosphatase 272 U/L (45-117); Aspartate Amino Transferase 30 U/L (0-37); Bilirubin,Total < 0.39 MG/DL (0.2-1.0); Blood Urea Nitrogen 30 MG/DL (7-18); Calcium 7.2 MG/DL (8.5-10.1); Carbon Dioxide 15 MMOL/L (21-32); Estimated Glom Filtration Rate 21 ML/MIN; Glucose 197 MG/DL (74-106); Osmolality,Calculated 289.4 MOS/KG (273-304); Potassium 3.7 MMOL/L (3.5-5.1); Sodium 140 MMOL/L (136-145); Total Protein 5.9 G/DL (6.4-8.3)
[2020-11-02] MEDS: PANTOPRAZOLE 40 MG TABLET PO SCH ×4 (07:30→18:06)
[2020-11-02] MEDS: INSULIN REGULAR 100 UNIT/ML SUBCUT SCH ×2 (07:30→16:24)
[2020-11-02] MEDS: POTASSIUM CHLORIDE 20 MEQ TABLET PO SCH ×2 (09:00→21:31)
[2020-11-02] MEDS: carvediloL 6.25 MG TABLET PO SCH ×2 (10:35→21:31)
[2020-11-02] MEDS: amLODIPine 10 MG TABLET PO SCH (10:35)
[2020-11-02] MEDS: FUROSEMIDE 40 MG/4 ML VIAL IV SCH ×2 (10:37→16:24)
[2020-11-02] MEDS ORDERED: BUPIVACAINE MPF 0.25% 30 ML VIAL ONE (11:29)
[2020-11-02] MEDS ORDERED: LIDOCAINE 1%/EPI INJ 20 ML VIAL ONE (11:30)
[2020-11-02] MEDS ORDERED: HEPARIN 5,000 UNIT/1 ML VIAL ONE (11:30)
[2020-11-02] MEDS ORDERED: MIDAZOLAM 2 MG/2 ML VIAL ONE ×2 (11:48→12:14)
[2020-11-02] MEDS ORDERED: fentaNYL 100 MCG/2 ML VIAL ONE (11:49)
[2020-11-02] MEDS ORDERED: SODIUM CHLORIDE 0.9% 250 ML IV SCH (12:00)
[2020-11-02] MEDS ORDERED: ONDANSETRON 4 MG/2 ML VIAL ONE ×2 (12:29→12:56)
[2020-11-02] MEDS ORDERED: propofoL 200 MG/20 ML VIAL IV ONE (12:29)
[2020-11-02] MEDS ORDERED: LIDOCAINE 2% 5 ML VIAL ONE (12:29)
[2020-11-02] MEDS ORDERED: ACETAMINOPHEN 1,000 MG/100 ML VIAL IV ONE (12:54)
[2020-11-02] MEDS ORDERED: ACETAMINOPHEN INJ 1,000 MG in PREMIX 1 EACH IV ONE (13:00)
[2020-11-02] MEDS ORDERED: ONDANSETRON 4 MG/2 ML VIAL IV ONE (13:01)
[2020-11-02] MEDS: metOLazone 5 MG TABLET PO SCH (15:33)
[2020-11-03] MEDS: cefTRIAXone 2,000 MG in SYRINGE 1 EACH IV SCH (00:28)
[2020-11-03] MEDS: ACETAMINOPHEN 500 MG TABLET PO PRN ×3 (03:59→19:44)
[2020-11-03] MEDS: traMADol 50 MG TABLET PO PRN (03:59)
[2020-11-03] MEDS: ERYTHROMYCIN INJ 250 MG in SODIUM CHLORIDE 0.9% 100 ML IV SCH ×4 (05:16→21:37)
[2020-11-03] MEDS: FUROSEMIDE 40 MG/4 ML VIAL IV SCH ×2 (08:06→16:53)
[2020-11-03] MEDS: metOLazone 5 MG TABLET PO SCH (08:06)
[2020-11-03] MEDS: amLODIPine 10 MG TABLET PO SCH (08:06)
[2020-11-03] MEDS: POTASSIUM CHLORIDE 20 MEQ TABLET PO SCH ×2 (08:06→21:37)
[2020-11-03] MEDS: INSULIN REGULAR 100 UNIT/ML SUBCUT SCH ×2 (08:07→16:54)
[2020-11-03] MEDS: carvediloL 6.25 MG TABLET PO SCH ×2 (08:07→21:37)
[2020-11-03] MEDS: PANTOPRAZOLE 40 MG TABLET PO SCH ×2 (08:07→16:54)
[2020-11-03] MEDS: DEXAMETHASONE 4 MG/1 ML VIAL IV SCH (12:15)
[2020-11-03] MEDS ORDERED: SODIUM CHLORIDE 0.9% 1,000 ML IV PRN (12:32)
[2020-11-03] MEDS: SCOPOLAMINE 1.5 MG PATCH TRANSDERM SCH (17:31)
[2020-11-03] MEDS: guaiFENesin/DM ER 600-30 MG TABLET PO SCH (21:37)
[2020-11-03] MEDS: MICONAZOLE 2% VAG CREAM 45 GM TUBE VAG SCH (21:37)
[2020-11-03] MEDS: BENZONATATE 100 MG CAPSULE PO PRN (21:38)
[2020-11-04] MEDS: DEXAMETHASONE 4 MG/1 ML VIAL IV SCH ×3 (00:43→23:26)
[2020-11-04] MEDS: cefTRIAXone 2,000 MG in SYRINGE 1 EACH IV SCH (00:46)
[2020-11-04] MEDS: ERYTHROMYCIN INJ 250 MG in SODIUM CHLORIDE 0.9% 100 ML IV SCH ×4 (04:38→23:28)
[2020-11-04 05:52] LABS: Basophils % 0.2 % (0.0-0.8); Hematocrit 30.1 VOL% (35.7-47.0); Hemoglobin 9.8 GM/DL (12.0-16.0); Immature Granulocytes % 0.7 %; Immature Granulocytes Absolute 0.06 #; Lymphocytes # 0.8 10*3/uL (1.4-4.0); Lymphocytes % 10.1 % (21.3-54.2); Mean Corpuscular HGB Conc 32.6 GM/DL (32-36); Mean Corpuscular Volume 80.7 FL (87-102); Mean Platelet Volume 12.7 FL (9.6-12.0); Platelet Count 194 T/CUMM (130-400); Red Blood Count 3.73 MC/CUMM (3.8-5.5); Red Cell Distribution Width 14.4 % (9.3-17.3); White Blood Count 8.1 T/CUMM (4-12)
[2020-11-04 06:30] LABS: Band Neutrophils 2 % (0-10); Hypochromasia Slight; Lymphocytes 7 % (20-55); Platelet Estimate Normal; Segmented Neutrophils 91 % (50-85); Total Cells Counted 100
[2020-11-04 06:31] LABS: Alanine Aminotransferase 12 U/L (13-56); Albumin 1.2 G/DL (3.4-5.0); Alkaline Phosphatase 221 U/L (45-117); Aspartate Amino Transferase 41 U/L (0-37); Bilirubin,Total < 0.39 MG/DL (0.2-1.0); Blood Urea Nitrogen 24 MG/DL (7-18); Calcium 7.2 MG/DL (8.5-10.1); Carbon Dioxide 19 MMOL/L (21-32); Estimated Glom Filtration Rate 25 ML/MIN; Glucose 341 MG/DL (74-106); Microcytosis Slight; Sodium 136 MMOL/L (136-145); Total Protein 5.8 G/DL (6.4-8.3)
[2020-11-04] MEDS: INSULIN REGULAR 100 UNIT/ML SUBCUT SCH ×2 (08:14→15:47)
[2020-11-04] MEDS: FUROSEMIDE 40 MG/4 ML VIAL IV SCH ×2 (08:14→15:47)
[2020-11-04] MEDS: metOLazone 5 MG TABLET PO SCH (08:15)
[2020-11-04] MEDS: carvediloL 6.25 MG TABLET PO SCH ×2 (08:15→21:31)
[2020-11-04] MEDS: POTASSIUM CHLORIDE 20 MEQ TABLET PO SCH ×2 (08:15→21:28)
[2020-11-04] MEDS: guaiFENesin/DM ER 600-30 MG TABLET PO SCH ×2 (08:15→21:28)
[2020-11-04] MEDS: PANTOPRAZOLE 40 MG TABLET PO SCH ×2 (08:15→15:48)
[2020-11-04] MEDS: amLODIPine 10 MG TABLET PO SCH (08:15)
[2020-11-04] MEDS: APIXABAN 2.5 MG TABLET PO SCH (21:31)
[2020-11-04] MEDS: MICONAZOLE 2% VAG CREAM 45 GM TUBE VAG SCH (21:33)
[2020-11-04] MEDS: ACETAMINOPHEN 500 MG TABLET PO PRN (21:43)
[2020-11-05] MEDS: cefTRIAXone 2,000 MG in SYRINGE 1 EACH IV SCH (00:37)
[2020-11-05] MEDS ORDERED: traMADol 50 MG TABLET PO ONE (01:02)
[2020-11-05] MEDS: ERYTHROMYCIN INJ 250 MG in SODIUM CHLORIDE 0.9% 100 ML IV SCH (04:38)
[2020-11-05 06:19] LABS: Albumin 1.2 G/DL (3.4-5.0); Bilirubin,Total 0.4 MG/DL (0.2-1.0); Calcium 7.2 MG/DL (8.5-10.1); Ferritin 1144.8 ng/ml (8-252); Osmolality,Calculated 293.4 MOS/KG (273-304); Potassium 3.8 MMOL/L (3.5-5.1); Total Protein 5.8 G/DL (6.4-8.3)
[2020-11-05] MEDS: INSULIN REGULAR 100 UNIT/ML SUBCUT SCH ×2 (08:05→16:46)
[2020-11-05] MEDS: carvediloL 6.25 MG TABLET PO SCH (08:37)
[2020-11-05] MEDS: FUROSEMIDE 40 MG/4 ML VIAL IV SCH ×2 (08:37→15:52)
[2020-11-05] MEDS: POTASSIUM CHLORIDE 20 MEQ TABLET PO SCH (08:37)
[2020-11-05] MEDS: guaiFENesin/DM ER 600-30 MG TABLET PO SCH (08:37)
[2020-11-05] MEDS: APIXABAN 2.5 MG TABLET PO SCH (08:37)
[2020-11-05] MEDS: metOLazone 5 MG TABLET PO SCH (08:37)
[2020-11-05] MEDS: amLODIPine 10 MG TABLET PO SCH (08:37)
[2020-11-05] MEDS: PANTOPRAZOLE 40 MG TABLET PO SCH ×2 (08:37→15:52)
[2020-11-05] MEDS: AZITHROMYCIN 40 MG/ML 15 ML/BOTTLE PO SCH (11:17)
[2020-11-05] MEDS: DEXAMETHASONE 4 MG/1 ML VIAL IV SCH (11:17)
[2020-11-05] MEDS ORDERED: HEPARIN 10,000 UNIT/10 ML VIAL IV PRN (13:10)
[2020-11-05] MEDS: PROMETHAZINE INJ 25 MG in SODIUM CHLORIDE 0.9% 50 ML IV PRN (15:57)
[2020-11-05] MEDS ORDERED: INSULIN GLARGINE 100 UNIT/ML SUBCUT SCH (21:00)
[2020-11-06] MEDS: PROMETHAZINE INJ 25 MG in SODIUM CHLORIDE 0.9% 50 ML IV PRN ×3 (00:38→09:26)
[2020-11-06] MEDS: carvediloL 6.25 MG TABLET PO SCH ×3 (00:42→21:35)
[2020-11-06] MEDS: APIXABAN 2.5 MG TABLET PO SCH ×3 (00:49→21:36)
[2020-11-06] MEDS: POTASSIUM CHLORIDE 20 MEQ TABLET PO SCH ×3 (00:49→21:36)
[2020-11-06] MEDS: MICONAZOLE 2% VAG CREAM 45 GM TUBE VAG SCH ×2 (00:49→22:19)
[2020-11-06] MEDS: DEXAMETHASONE 4 MG/1 ML VIAL IV SCH ×3 (00:50→23:42)
[2020-11-06] MEDS: guaiFENesin/DM ER 600-30 MG TABLET PO SCH ×3 (00:50→21:37)
[2020-11-06] MEDS: cefTRIAXone 2,000 MG in SYRINGE 1 EACH IV SCH (01:08)
[2020-11-06 06:59] LABS: Basophils % 0.1 % (0.0-0.8); Hematocrit 30.7 VOL% (35.7-47.0); Hemoglobin 9.9 GM/DL (12.0-16.0); Immature Granulocytes % 2.2 %; Immature Granulocytes Absolute 0.27 #; Lymphocytes # 0.9 10*3/uL (1.4-4.0); Lymphocytes % 7.1 % (21.3-54.2); Mean Corpuscular HGB Conc 32.2 GM/DL (32-36); Mean Corpuscular Volume 79.7 FL (87-102); Mean Platelet Volume 11.8 FL (9.6-12.0); Monocytes % 4.7 % (1.7-12.7); Neutrophils % 85.9 % (38.7-73.9); Platelet Count 232 T/CUMM (130-400); Red Blood Count 3.85 MC/CUMM (3.8-5.5); Red Cell Distribution Width 14.3 % (9.3-17.3)
[2020-11-06 07:05] LABS: Alanine Aminotransferase 10 U/L (13-56); Albumin 1.1 G/DL (3.4-5.0); Alkaline Phosphatase 195 U/L (45-117); Aspartate Amino Transferase 30 U/L (0-37); Bilirubin,Total < 0.39 MG/DL (0.2-1.0); Blood Urea Nitrogen 26 MG/DL (7-18); Calcium 7.3 MG/DL (8.5-10.1); Carbon Dioxide 24 MMOL/L (21-32); Estimated Glom Filtration Rate 30 ML/MIN; Glucose 384 MG/DL (74-106); Osmolality,Calculated 286.4 MOS/KG (273-304); Potassium 3.4 MMOL/L (3.5-5.1); Sodium 133 MMOL/L (136-145); Total Protein 5.6 G/DL (6.4-8.3)
[2020-11-06] MEDS: FUROSEMIDE 40 MG/4 ML VIAL IV SCH ×2 (09:10→15:48)
[2020-11-06] MEDS: amLODIPine 10 MG TABLET PO SCH (09:10)
[2020-11-06] MEDS: INSULIN REGULAR 100 UNIT/ML SUBCUT SCH ×2 (09:10→15:50)
[2020-11-06] MEDS: metOLazone 5 MG TABLET PO SCH (09:10)
[2020-11-06] MEDS: AZITHROMYCIN 40 MG/ML 15 ML/BOTTLE PO SCH (09:10)
[2020-11-06] MEDS: PANTOPRAZOLE 40 MG TABLET PO SCH ×2 (09:10→15:48)
[2020-11-06] MEDS: SCOPOLAMINE 1.5 MG PATCH TRANSDERM SCH (09:13)
[2020-11-06] MEDS: ACETAMINOPHEN 500 MG TABLET PO PRN ×2 (15:48→21:37)
[2020-11-06] MEDS: INSULIN GLARGINE 100 UNIT/ML SUBCUT SCH (21:36)
[2020-11-07 05:48] LABS: Basophils % 0.2 % (0.0-0.8); Hematocrit 33.9 VOL% (35.7-47.0); Hemoglobin 10.6 GM/DL (12.0-16.0); Immature Granulocytes % 2.6 %; Immature Granulocytes Absolute 0.28 #; Lymphocytes # 0.8 10*3/uL (1.4-4.0); Lymphocytes % 7.1 % (21.3-54.2); Mean Corpuscular HGB Conc 31.3 GM/DL (32-36); Mean Corpuscular Volume 82.9 FL (87-102); Mean Platelet Volume 12.1 FL (9.6-12.0); Monocytes % 3.2 % (1.7-12.7); Neutrophils % 86.9 % (38.7-73.9); Platelet Count 256 T/CUMM (130-400); Red Blood Count 4.09 MC/CUMM (3.8-5.5); Red Cell Distribution Width 14.1 % (9.3-17.3); White Blood Count 10.8 T/CUMM (4-12)
[2020-11-07 06:26] LABS: Alanine Aminotransferase 10 U/L (13-56); Albumin 1.1 G/DL (3.4-5.0); Alkaline Phosphatase 207 U/L (45-117); Aspartate Amino Transferase 25 U/L (0-37); Bilirubin,Total < 0.39 MG/DL (0.2-1.0); Blood Urea Nitrogen 37 MG/DL (7-18); Calcium 7.3 MG/DL (8.5-10.1); Carbon Dioxide 23 MMOL/L (21-32); Estimated Glom Filtration Rate 27 ML/MIN; Ferritin 1256.6 ng/ml (8-252); Glucose 466 MG/DL (74-106); Osmolality,Calculated 288.8 MOS/KG (273-304); Potassium 3.9 MMOL/L (3.5-5.1); Sodium 130 MMOL/L (136-145); Total Protein 6.1 G/DL (6.4-8.3)
[2020-11-07] MEDS: ACETAMINOPHEN 500 MG TABLET PO PRN ×2 (06:47→19:11)
[2020-11-07] MEDS: FUROSEMIDE 40 MG/4 ML VIAL IV SCH ×2 (09:09→16:21)
[2020-11-07] MEDS: INSULIN REGULAR 100 UNIT/ML SUBCUT SCH ×2 (09:09→16:21)
[2020-11-07] MEDS: PANTOPRAZOLE 40 MG TABLET PO SCH ×2 (09:10→16:51)
[2020-11-07] MEDS: carvediloL 6.25 MG TABLET PO SCH ×2 (09:10→20:50)
[2020-11-07] MEDS: guaiFENesin/DM ER 600-30 MG TABLET PO SCH ×2 (09:10→20:50)
[2020-11-07] MEDS: APIXABAN 2.5 MG TABLET PO SCH ×2 (09:11→20:50)
[2020-11-07] MEDS: AZITHROMYCIN 40 MG/ML 15 ML/BOTTLE PO SCH (09:11)
[2020-11-07] MEDS: metOLazone 5 MG TABLET PO SCH (09:11)
[2020-11-07] MEDS: POTASSIUM CHLORIDE 20 MEQ TABLET PO SCH ×2 (09:11→20:50)
[2020-11-07] MEDS: amLODIPine 10 MG TABLET PO SCH (09:11)
[2020-11-07] MEDS: DEXAMETHASONE 4 MG/1 ML VIAL IV SCH ×2 (12:58→22:57)
[2020-11-07] MEDS: MICONAZOLE 2% VAG CREAM 45 GM TUBE VAG SCH (20:50)
[2020-11-07] MEDS: INSULIN GLARGINE 100 UNIT/ML SUBCUT SCH (20:57)
[2020-11-08 05:51] LABS: Basophils % 0.2 % (0.0-0.8); Hematocrit 32.5 VOL% (35.7-47.0); Hemoglobin 10.2 GM/DL (12.0-16.0); Immature Granulocytes % 4.9 %; Immature Granulocytes Absolute 0.58 #; Lymphocytes # 0.9 10*3/uL (1.4-4.0); Lymphocytes % 7.5 % (21.3-54.2); Mean Corpuscular HGB Conc 31.4 GM/DL (32-36); Mean Corpuscular Volume 81.7 FL (87-102); Mean Platelet Volume 10.9 FL (9.6-12.0); Monocytes % 6.1 % (1.7-12.7); Neutrophils % 81.3 % (38.7-73.9); Platelet Count 299 T/CUMM (130-400); Red Blood Count 3.98 MC/CUMM (3.8-5.5); Red Cell Distribution Width 13.8 % (9.3-17.3); White Blood Count 11.7 T/CUMM (4-12)
[2020-11-08 06:25] LABS: Albumin 1.1 G/DL (3.4-5.0); Bilirubin,Total 0.5 MG/DL (0.2-1.0); Osmolality,Calculated 295.4 MOS/KG (273-304); Potassium 3.5 MMOL/L (3.5-5.1); Total Protein 5.7 G/DL (6.4-8.3)
[2020-11-08 06:35] LABS: Band Neutrophils 1 % (0-10); Lymphocytes 6 % (20-55); Myelocytes 3 %; Platelet Estimate Normal; Segmented Neutrophils 83 % (50-85); Smudge Cells Few; Total Cells Counted 100
[2020-11-08 06:36] LABS: Anisocytosis 1+
[2020-11-08] MEDS ORDERED: INSULIN GLARGINE 100 UNIT/ML SUBCUT ONE (08:07)
[2020-11-08] MEDS: FUROSEMIDE 40 MG/4 ML VIAL IV SCH ×2 (08:28→16:26)
[2020-11-08] MEDS: carvediloL 6.25 MG TABLET PO SCH ×2 (08:28→20:52)
[2020-11-08] MEDS: POTASSIUM CHLORIDE 20 MEQ TABLET PO SCH ×2 (08:28→20:52)
[2020-11-08] MEDS: AZITHROMYCIN 40 MG/ML 15 ML/BOTTLE PO SCH (08:28)
[2020-11-08] MEDS: metOLazone 5 MG TABLET PO SCH (08:28)
[2020-11-08] MEDS: amLODIPine 10 MG TABLET PO SCH (08:28)
[2020-11-08] MEDS: PANTOPRAZOLE 40 MG TABLET PO SCH ×2 (08:29→16:26)
[2020-11-08] MEDS: guaiFENesin/DM ER 600-30 MG TABLET PO SCH (08:29)
[2020-11-08] MEDS: APIXABAN 2.5 MG TABLET PO SCH ×2 (08:29→20:52)
[2020-11-08] MEDS: INSULIN REGULAR 100 UNIT/ML SUBCUT SCH ×5 (09:23→21:25)
[2020-11-08] MEDS: ACETAMINOPHEN 500 MG TABLET PO PRN ×2 (09:27→19:26)
[2020-11-08] MEDS: PROMETHAZINE 25 MG TABLET PO PRN (20:52)
[2020-11-08] MEDS ORDERED: INSULIN GLARGINE 100 UNIT/ML SUBCUT SCH ×2 (21:00)
[2020-11-08] MEDS: MICONAZOLE 2% VAG CREAM 45 GM TUBE VAG SCH (21:03)
[2020-11-09] MEDS: INSULIN REGULAR 100 UNIT/ML SUBCUT SCH ×4 (02:01→13:54)
[2020-11-09] MEDS: PROMETHAZINE 25 MG TABLET PO PRN (04:58)
[2020-11-09] MEDS: ACETAMINOPHEN 500 MG TABLET PO PRN ×2 (04:58→10:58)
[2020-11-09 06:41] LABS: Osmolality,Calculated 280.2 MOS/KG (273-304); Potassium 3.2 MMOL/L (3.5-5.1)
[2020-11-09] MEDS: PANTOPRAZOLE 40 MG TABLET PO SCH (08:30)
[2020-11-09] MEDS: carvediloL 6.25 MG TABLET PO SCH (08:30)
[2020-11-09] MEDS: metOLazone 5 MG TABLET PO SCH (08:30)
[2020-11-09] MEDS: POTASSIUM CHLORIDE 20 MEQ TABLET PO SCH (08:30)
[2020-11-09] MEDS: FUROSEMIDE 40 MG/4 ML VIAL IV SCH (08:30)
[2020-11-09] MEDS: APIXABAN 2.5 MG TABLET PO SCH (08:30)
[2020-11-09] MEDS: amLODIPine 10 MG TABLET PO SCH (08:30)
[2020-11-09] MEDS: AZITHROMYCIN 40 MG/ML 15 ML/BOTTLE PO SCH ×2 (08:35→10:21)
[2020-11-09] MEDS: SCOPOLAMINE 1.5 MG PATCH TRANSDERM SCH (08:35)
[2020-11-09 11:10] VITALS: BP 120/86
== END 2020-11-09 14:20 | disposition home or self-care (01) | DRG 673 ==
LOC: N.EDINP 12:42 → N.ED 12:42 → SUATTDRO 15:26 → N.EDINP 18:22 → N.3E 18:44 → SUATTDRO 10-22 12:11 → N.2E 11-02 14:09
PROVIDERS: ADMIT Internal Medicine; ATTEND Internal Medicine

== ENCOUNTER 2021-01-10 17:31 | Observation (INO) ==
[2021-01-10 18:58] LABS: Basophils # 0.1 10*3/uL (0.0-0.2); Basophils % 0.7 % (0.0-0.8); Eosinophils # 0.2 10*3/uL (0.0-0.87); Eosinophils % 2.2 % (0.00-10.9); Hematocrit 24.2 VOL% (35.7-47.0); Hemoglobin 7.8 GM/DL (12.0-16.0); Immature Granulocytes % 0.4 %; Immature Granulocytes Absolute 0.03 #; Lymphocytes # 1.6 10*3/uL (1.4-4.0); Lymphocytes % 23.3 % (21.3-54.2); Mean Corpuscular HGB Conc 32.2 GM/DL (32-36); Mean Corpuscular Volume 82.9 FL (87-102); Mean Platelet Volume 11.6 FL (9.6-12.0); Monocytes % 7.3 % (1.7-12.7); NRBC # 0.02 10*3/uL; Neutrophils % 66.1 % (38.7-73.9); Platelet Count 320 T/CUMM (130-400); Red Blood Count 2.92 MC/CUMM (3.8-5.5); Red Cell Distribution Width 16.6 % (9.3-17.3)
[2021-01-10 19:11] LABS: Calcium 7.6 MG/DL (8.5-10.1); Osmolality,Calculated 285.8 MOS/KG (273-304); Potassium 2.8 MMOL/L (3.5-5.1)
[2021-01-10] MEDS ORDERED: ACETAMINOPHEN 500 MG TABLET PO STA (19:47)
[2021-01-10] MEDS ORDERED: GLUCAGON 1 MG VIAL IM PRN (20:02)
[2021-01-10] MEDS ORDERED: DEXTROSE 50% 25 GM/50 ML VIAL IV PRN (20:02)
[2021-01-10] MEDS ORDERED: ACETAMINOPHEN 325 MG TABLET PO PRN (20:02)
[2021-01-10] MEDS ORDERED: ONDANSETRON 4 MG/2 ML VIAL IV PRN (20:02)
[2021-01-10] MEDS: INSULIN REGULAR 100 UNIT/ML SUBCUT SCH (21:30)
[2021-01-10] MEDS ORDERED: PNEUMOCOCCAL VACCINE (13 VALENT) 0.5 ML SYRINGE IM ONE (22:34)
[2021-01-11 05:38] LABS: Basophils # 0.1 10*3/uL (0.0-0.2); Basophils % 0.6 % (0.0-0.8); Eosinophils # 0.2 10*3/uL (0.0-0.87); Eosinophils % 2.5 % (0.00-10.9); Hemoglobin 7.6 GM/DL (12.0-16.0); Immature Granulocytes % 0.1 %; Immature Granulocytes Absolute 0.01 #; Lymphocytes % 46.5 % (21.3-54.2); Mean Corpuscular HGB Conc 31.7 GM/DL (32-36); Mean Platelet Volume 10.5 FL (9.6-12.0); Monocytes % 10.7 % (1.7-12.7); Neutrophils % 39.6 % (38.7-73.9); Platelet Count 303 T/CUMM (130-400); Red Blood Count 2.89 MC/CUMM (3.8-5.5); Red Cell Distribution Width 16.5 % (9.3-17.3); White Blood Count 8.7 T/CUMM (4-12)
[2021-01-11] MEDS ORDERED: POTASSIUM CHLORIDE 20 MEQ TABLET PO PRN (05:59)
[2021-01-11 06:02] LABS: Calcium 8.1 MG/DL (8.5-10.1); Osmolality,Calculated 281.4 MOS/KG (273-304); Potassium 3.6 MMOL/L (3.5-5.1)
[2021-01-11] MEDS: INSULIN REGULAR 100 UNIT/ML SUBCUT SCH ×3 (08:10→15:40)
[2021-01-11] MEDS ORDERED: LIDOCAINE 1%/EPI INJ 20 ML VIAL ONE (08:55)
[2021-01-11] MEDS ORDERED: BUPIVACAINE MPF 0.25% 30 ML VIAL ONE (08:55)
[2021-01-11] MEDS ORDERED: HEPARIN 5,000 UNIT/1 ML VIAL ONE (08:55)
[2021-01-11] MEDS ORDERED: propofoL 200 MG/20 ML VIAL IV ONE (09:23)
[2021-01-11] MEDS ORDERED: MIDAZOLAM 2 MG/2 ML VIAL ONE ×2 (09:23→10:31)
[2021-01-11] MEDS ORDERED: fentaNYL 100 MCG/2 ML VIAL ONE (09:23)
[2021-01-11] MEDS ORDERED: SODIUM CHLORIDE 0.9% 100 ML IV ONE (09:23)
[2021-01-11] MEDS ORDERED: LIDOCAINE 2% 5 ML VIAL ONE (09:23)
[2021-01-11] MEDS ORDERED: ONDANSETRON 4 MG/2 ML VIAL ONE (10:30)
[2021-01-11] MEDS ORDERED: SODIUM CHLORIDE 0.9% 250 ML IV SCH (10:30)
[2021-01-11] MEDS ORDERED: ceFAZolin 1,000 MG VIAL ONE (10:34)
[2021-01-11] MEDS ORDERED: DEXTROSE 50% 25 GM/50 ML VIAL IV PRN (11:34)
[2021-01-11 15:38] VITALS: BP 172/92
== END 2021-01-11 17:00 | disposition home or self-care (01) ==
LOC: N.ED 17:31 → N.EDINP 17:31 → N.3E 22:13
PROVIDERS: ADMIT Surgery; ATTEND Surgery

== ENCOUNTER 2021-01-22 14:51 | Inpatient (IN) ==
[2021-01-22 15:11] LABS: ABG Base Excess 2.5 MMOL/L (-2.5-2.5); ABG HCO3 26.6 MMOL/L (20-26); ABG PH 7.495 (7.35-7.45); ABG TCO2 23.4 MMOL/L (23-27)
[2021-01-22 15:12] LABS: Basophils # 0.1 10*3/uL (0.0-0.2); Basophils % 0.3 % (0.0-0.8); Eosinophils # 0.1 10*3/uL (0.0-0.87); Eosinophils % 0.5 % (0.00-10.9); Hematocrit 24.3 VOL% (35.7-47.0); Hemoglobin 7.5 GM/DL (12.0-16.0); Immature Granulocytes % 3.9 %; Immature Granulocytes Absolute 0.81 #; Lymphocytes # 7.6 10*3/uL (1.4-4.0); Lymphocytes % 36.6 % (21.3-54.2); Mean Corpuscular HGB Conc 30.9 GM/DL (32-36); Mean Corpuscular Volume 83.8 FL (87-102); Mean Platelet Volume 11.1 FL (9.6-12.0); Monocytes % 3.4 % (1.7-12.7); NRBC # 0.05 10*3/uL; Neutrophils % 55.3 % (38.7-73.9); Platelet Count 348 T/CUMM (130-400); Red Cell Distribution Width 15.1 % (9.3-17.3); White Blood Count 20.6 T/CUMM (4-12)
[2021-01-22] MEDS ORDERED: MIDAZOLAM 100 MG in SODIUM CHLORIDE 0.9% 80 ML IV PRN (15:40)
[2021-01-22] MEDS ORDERED: INSULIN LISPRO 100 UNIT/ML SUBCUT SCH (16:00)
[2021-01-22] MEDS ORDERED: GLUCAGON 1 MG VIAL IM PRN (16:23)
[2021-01-22] MEDS ORDERED: DOPamine 800 MG/250 ML PREMIX IV PRN (16:35)
[2021-01-22 16:39] LABS: Alanine Aminotransferase 108 U/L (13-56); Albumin 1.3 G/DL (3.4-5.0); Alkaline Phosphatase 247 U/L (45-117); Aspartate Amino Transferase 180 U/L (0-37); Bilirubin,Total < 0.39 MG/DL (0.2-1.0); Blood Urea Nitrogen 8 MG/DL (7-18); Calcium 6.3 MG/DL (8.5-10.1); Carbon Dioxide 24 MMOL/L (21-32); Estimated Glom Filtration Rate 81 ML/MIN; Glucose 263 MG/DL (74-106); Osmolality,Calculated 287.3 MOS/KG (273-304); Sodium 141 MMOL/L (136-145); Total Protein 4.8 G/DL (6.4-8.2)
[2021-01-22 16:44] LABS: Potassium 1.6 MMOL/L (3.5-5.1)
[2021-01-22 17:27] LABS: Band Neutrophils 2 % (0-10); INR 1.1; Lymphocytes 42 % (20-55); PT Patient Result 11.8 SECS (9.8-11.9); Partial Thromboplastin Time 54.3 SECS (23.9-33.8); Segmented Neutrophils 52 % (50-85); Total Cells Counted 100
[2021-01-22 17:28] LABS: Macrocytosis Slight; Platelet Estimate Adequate
[2021-01-22] MEDS ORDERED: ETOMIDATE 20 MG/10 ML VIAL IV ONE (18:01)
[2021-01-22] MEDS ORDERED: ROCURONIUM 100 MG/10 ML VIAL IV ONE (18:02)
[2021-01-22] MEDS: fentaNYL INJ 1,250 MCG in SODIUM CHLORIDE 0.9% 225 ML IV PRN (19:13)
[2021-01-22] MEDS: CISATRACURIUM 200 MG in SODIUM CHLORIDE 0.9% 180 ML IV PRN (19:13)
[2021-01-22] MEDS: NOREPINEPHRINE 8 MG in SODIUM CHLORIDE 0.9% 242 ML IV SCH (19:15)
[2021-01-22] MEDS ORDERED: POTASSIUM CHLORIDE RIDER 100 ML IV PRN (19:17)
[2021-01-22] MEDS ORDERED: POTASSIUM CHLORIDE RIDER 100 ML IV ONE (19:20)
[2021-01-22 19:56] LABS: Basophils % 0.3 % (0.0-0.8); Eosinophils % 0.3 % (0.00-10.9); Hematocrit 24.5 VOL% (35.7-47.0); Hemoglobin 7.7 GM/DL (12.0-16.0); Immature Granulocytes Absolute 0.11 #; Lymphocytes # 1.4 10*3/uL (1.4-4.0); Lymphocytes % 12.6 % (21.3-54.2); Mean Corpuscular HGB Conc 31.4 GM/DL (32-36); Mean Corpuscular Volume 81.7 FL (87-102); Mean Platelet Volume 11.3 FL (9.6-12.0); Monocytes % 5.4 % (1.7-12.7); Neutrophils % 80.4 % (38.7-73.9); Platelet Count 316 T/CUMM (130-400); White Blood Count 11.4 T/CUMM (4-12)
[2021-01-22 20:24] LABS: Alanine Aminotransferase 115 U/L (13-56); Albumin 1.5 G/DL (3.4-5.0); Alkaline Phosphatase 311 U/L (45-117); Amylase 31 U/L (25-115); Aspartate Amino Transferase 170 U/L (0-37); Bilirubin,Total < 0.39 MG/DL (0.2-1.0); Blood Urea Nitrogen 14 MG/DL (7-18); Calcium 7.6 MG/DL (8.5-10.1); Carbon Dioxide 27 MMOL/L (21-32); Estimated Glom Filtration Rate 43 ML/MIN; Glucose 237 MG/DL (74-106); Osmolality,Calculated 281.8 MOS/KG (273-304); Sodium 137 MMOL/L (136-145); Total Protein 5.4 G/DL (6.4-8.2)
[2021-01-22 20:25] LABS: Troponin I 0.577 NG/ML (0.00-0.045)
[2021-01-22 20:27] LABS: Potassium 2.4 MMOL/L (3.5-5.1)
[2021-01-22] MEDS ORDERED: POTASSIUM CHLORIDE 20 MEQ TABLET PO ONE (20:53)
[2021-01-22] MEDS: INSULIN GLARGINE 100 UNIT/ML SUBCUT SCH (20:57)
[2021-01-22] MEDS: INSULIN REGULAR 100 UNIT/ML IV SCH (21:14)
[2021-01-22 21:52] LABS: ABG Base Excess 4.7 MMOL/L (-2.5-2.5); ABG HCO3 28.7 MMOL/L (20-26); ABG PCO2 29.4 MM HG (35-48); ABG PH 7.568 (7.35-7.45); ABG TCO2 25.3 MMOL/L (23-27)
[2021-01-23] MEDS: INSULIN REGULAR 100 UNIT/ML IV SCH ×7 (00:33→23:49)
[2021-01-23 01:53] LABS: Basophils % 0.5 % (0.0-0.8); Eosinophils # 0.1 10*3/uL (0.0-0.87); Eosinophils % 1.3 % (0.00-10.9); Hematocrit 20.7 VOL% (35.7-47.0); Hemoglobin 6.6 GM/DL (12.0-16.0); Immature Granulocytes % 0.6 %; Immature Granulocytes Absolute 0.05 #; Lymphocytes # 1.7 10*3/uL (1.4-4.0); Lymphocytes % 21.5 % (21.3-54.2); Mean Corpuscular HGB Conc 31.9 GM/DL (32-36); Mean Corpuscular Volume 82.1 FL (87-102); Mean Platelet Volume 10.9 FL (9.6-12.0); Monocytes % 4.3 % (1.7-12.7); Neutrophils % 71.8 % (38.7-73.9); Platelet Count 260 T/CUMM (130-400); Red Blood Count 2.52 MC/CUMM (3.8-5.5); Red Cell Distribution Width 15.3 % (9.3-17.3); White Blood Count 7.7 T/CUMM (4-12)
[2021-01-23 02:12] LABS: Partial Thromboplastin Time 22.7 SECS (23.9-33.8)
[2021-01-23 02:17] LABS: Calcium 7.4 MG/DL (8.5-10.1); Osmolality,Calculated 277.8 MOS/KG (273-304)
[2021-01-23 02:22] LABS: Potassium 2.4 MMOL/L (3.5-5.1); Troponin I 0.614 NG/ML (0.00-0.045)
[2021-01-23] MEDS ORDERED: POTASSIUM CHLORIDE 20 MEQ/15 ML UDCUP PO ONE (02:25)
[2021-01-23] MEDS: POTASSIUM CHLORIDE RIDER 20 MEQ in PREMIX 1 EACH IV PRN ×4 (02:46→11:18)
[2021-01-23] MEDS: fentaNYL INJ 1,250 MCG in SODIUM CHLORIDE 0.9% 225 ML IV PRN ×3 (03:55→23:35)
[2021-01-23 04:26] LABS: ABG PCO2 29.9 MM HG (35-48); ABG PH 7.568 (7.35-7.45); ABG TCO2 25.9 MMOL/L (23-27)
[2021-01-23 04:36] LABS: Basophils % 0.5 % (0.0-0.8); Eosinophils # 0.1 10*3/uL (0.0-0.87); Eosinophils % 1.9 % (0.00-10.9); Hematocrit 20.7 VOL% (35.7-47.0); Hemoglobin 6.6 GM/DL (12.0-16.0); Immature Granulocytes % 0.5 %; Immature Granulocytes Absolute 0.03 #; Lymphocytes # 1.8 10*3/uL (1.4-4.0); Lymphocytes % 28.9 % (21.3-54.2); Mean Corpuscular HGB Conc 31.9 GM/DL (32-36); Mean Corpuscular Volume 81.5 FL (87-102); Mean Platelet Volume 10.9 FL (9.6-12.0); Monocytes % 5.1 % (1.7-12.7); NRBC # 0.02 10*3/uL; Neutrophils % 63.1 % (38.7-73.9); Platelet Count 245 T/CUMM (130-400); Red Blood Count 2.54 MC/CUMM (3.8-5.5); Red Cell Distribution Width 15.1 % (9.3-17.3); White Blood Count 6.3 T/CUMM (4-12)
[2021-01-23 04:53] LABS: PT Patient Result 11.4 SECS (9.8-11.9)
[2021-01-23 05:08] LABS: Eosinophils 1 % (0-10); Lymphocytes 30 % (20-55); Nucleated Red Blood Cells 1 (0-5); Platelet Estimate Adequate; Segmented Neutrophils 65 % (50-85); Total Cells Counted 100
[2021-01-23 05:09] LABS: Hypochromasia 2+; Microcytosis 1+
[2021-01-23 06:22] LABS: Alanine Aminotransferase 88 U/L (13-56); Albumin 1.3 G/DL (3.4-5.0); Alkaline Phosphatase 235 U/L (45-117); Aspartate Amino Transferase 83 U/L (0-37); Bilirubin,Total < 0.39 MG/DL (0.2-1.0); Blood Urea Nitrogen 17 MG/DL (7-18); Calcium 7.3 MG/DL (8.5-10.1); Carbon Dioxide 26 MMOL/L (21-32); Estimated Glom Filtration Rate 39 ML/MIN; Glucose 136 MG/DL (74-106); HDL Cholesterol 61 MG/DL (40-60); Osmolality,Calculated 280.5 MOS/KG (273-304); Potassium 3.4 MMOL/L (3.5-5.1); Risk Ratio 2.97; Sodium 139 MMOL/L (136-145); Triglycerides 204 MG/DL (2-150); VLDL CHOLESTEROL 40.8 MG/DL
[2021-01-23] MEDS ORDERED: MAGNESIUM SULF RIDER 2 GM/50 ML PREMIX IV ONE (08:00)
[2021-01-23] MEDS: PANTOPRAZOLE 40 MG VIAL IV SCH (08:24)
[2021-01-23] MEDS ORDERED: PANTOPRAZOLE 40 MG TABLET PO SCH (09:00)
[2021-01-23] MEDS ORDERED: POTASSIUM PHOSPHATE 20 MMOL in SODIUM CHLORIDE 0.9% 100 ML IV ONE (09:00)
[2021-01-23] MEDS: INSULIN GLARGINE 100 UNIT/ML SUBCUT SCH (09:09)
[2021-01-23] MEDS: PIPERACILLIN/TAZOBACTAM 3,375 MG in SODIUM CHLORIDE 0.9% 100 ML IV SCH ×2 (09:32→20:49)
[2021-01-23 09:52] LABS: Basophils % 0.7 % (0.0-0.8); Eosinophils # 0.1 10*3/uL (0.0-0.87); Hematocrit 23.5 VOL% (35.7-47.0); Hemoglobin 7.3 GM/DL (12.0-16.0); Immature Granulocytes % 0.7 %; Immature Granulocytes Absolute 0.04 #; Lymphocytes # 1.7 10*3/uL (1.4-4.0); Lymphocytes % 27.4 % (21.3-54.2); Mean Corpuscular HGB Conc 31.1 GM/DL (32-36); Mean Platelet Volume 10.4 FL (9.6-12.0); Monocytes % 5.4 % (1.7-12.7); NRBC # 0.02 10*3/uL; Neutrophils % 63.8 % (38.7-73.9); Platelet Count 207 T/CUMM (130-400); Red Blood Count 2.83 MC/CUMM (3.8-5.5); Red Cell Distribution Width 15.6 % (9.3-17.3); White Blood Count 6.1 T/CUMM (4-12)
[2021-01-23 10:00] LABS: Partial Thromboplastin Time 30.2 SECS (23.9-33.8)
[2021-01-23 10:06] LABS: Calcium 7.3 MG/DL (8.5-10.1); Osmolality,Calculated 277.7 MOS/KG (273-304); Potassium 3.2 MMOL/L (3.5-5.1)
[2021-01-23 10:11] LABS: Troponin I 0.318 NG/ML (0.00-0.045)
[2021-01-23 10:11] LABS: Eosinophils 1 % (0-10); Hypochromasia 1+; Lymphocytes 35 % (20-55); Microcytosis 1+; Platelet Estimate Adequate; Segmented Neutrophils 61 % (50-85); Total Cells Counted 100
[2021-01-23] MEDS ORDERED: NOREPINEPHRINE 4 MG/4 ML VIAL IV ONE (10:55)
[2021-01-23] MEDS ORDERED: SODIUM CHLORIDE 0.9% 1,000 ML IV PRN (11:38)
[2021-01-23 13:50] LABS: Basophils % 0.6 % (0.0-0.8); Eosinophils # 0.1 10*3/uL (0.0-0.87); Eosinophils % 1.8 % (0.00-10.9); Hematocrit 21.6 VOL% (35.7-47.0); Hemoglobin 7.1 GM/DL (12.0-16.0); Immature Granulocytes % 0.3 %; Immature Granulocytes Absolute 0.02 #; Lymphocytes # 1.6 10*3/uL (1.4-4.0); Lymphocytes % 25.2 % (21.3-54.2); Mean Corpuscular HGB Conc 32.9 GM/DL (32-36); Mean Corpuscular Volume 81.8 FL (87-102); Mean Platelet Volume 11.3 FL (9.6-12.0); Monocytes % 4.2 % (1.7-12.7); NRBC # 0.02 10*3/uL; Neutrophils % 67.9 % (38.7-73.9); Platelet Count 211 T/CUMM (130-400); Red Blood Count 2.64 MC/CUMM (3.8-5.5); Red Cell Distribution Width 15.6 % (9.3-17.3); White Blood Count 6.2 T/CUMM (4-12)
[2021-01-23 14:00] LABS: PT Patient Result 11.4 SECS (9.8-11.9); Partial Thromboplastin Time 24.7 SECS (23.9-33.8)
[2021-01-23 14:20] LABS: Calcium 7.1 MG/DL (8.5-10.1); Osmolality,Calculated 276.7 MOS/KG (273-304); Potassium 4.1 MMOL/L (3.5-5.1)
[2021-01-23 14:24] LABS: Troponin I 0.245 NG/ML (0.00-0.045)
[2021-01-23] MEDS: NOREPINEPHRINE 8 MG in SODIUM CHLORIDE 0.9% 242 ML IV SCH (15:57)
[2021-01-23] MEDS: CISATRACURIUM 200 MG in SODIUM CHLORIDE 0.9% 180 ML IV PRN (16:00)
[2021-01-23 19:36] LABS: Basophils % 0.5 % (0.0-0.8); Eosinophils # 0.1 10*3/uL (0.0-0.87); Eosinophils % 1.8 % (0.00-10.9); Hematocrit 27.6 VOL% (35.7-47.0); Immature Granulocytes % 0.4 %; Immature Granulocytes Absolute 0.03 #; Lymphocytes # 1.2 10*3/uL (1.4-4.0); Lymphocytes % 15.5 % (21.3-54.2); Mean Corpuscular Volume 81.2 FL (87-102); Mean Platelet Volume 10.5 FL (9.6-12.0); Monocytes % 3.8 % (1.7-12.7); Platelet Count 211 T/CUMM (130-400); Red Cell Distribution Width 15.5 % (9.3-17.3); White Blood Count 7.9 T/CUMM (4-12)
[2021-01-23 19:50] LABS: Hemoglobin 9.1 GM/DL (12.0-16.0)
[2021-01-23 19:56] LABS: Calcium 7.2 MG/DL (8.5-10.1); Osmolality,Calculated 276.7 MOS/KG (273-304); PT Patient Result 11.1 SECS (9.8-11.9); Partial Thromboplastin Time 25.7 SECS (23.9-33.8); Potassium 3.9 MMOL/L (3.5-5.1)
[2021-01-23 20:03] LABS: Troponin I 0.165 NG/ML (0.00-0.045)
[2021-01-24 03:28] LABS: ABG Base Excess 0.2 MMOL/L (-2.5-2.5); ABG HCO3 24.6 MMOL/L (20-26); ABG PCO2 32.1 MM HG (35-48); ABG TCO2 21.3 MMOL/L (23-27)
[2021-01-24 03:41] LABS: Basophils # 0.1 10*3/uL (0.0-0.2); Basophils % 0.5 % (0.0-0.8); Eosinophils # 0.1 10*3/uL (0.0-0.87); Eosinophils % 1.1 % (0.00-10.9); Hematocrit 27.6 VOL% (35.7-47.0); Hemoglobin 9.2 GM/DL (12.0-16.0); Immature Granulocytes % 0.7 %; Immature Granulocytes Absolute 0.07 #; Lymphocytes % 9.3 % (21.3-54.2); Mean Corpuscular HGB Conc 33.3 GM/DL (32-36); Mean Corpuscular Volume 81.9 FL (87-102); Mean Platelet Volume 11.7 FL (9.6-12.0); Neutrophils % 85.4 % (38.7-73.9); Platelet Count 221 T/CUMM (130-400); Red Blood Count 3.37 MC/CUMM (3.8-5.5); Red Cell Distribution Width 15.8 % (9.3-17.3); White Blood Count 10.4 T/CUMM (4-12)
[2021-01-24 03:48] LABS: Calcium 7.5 MG/DL (8.5-10.1); Osmolality,Calculated 276.8 MOS/KG (273-304); Potassium 4.2 MMOL/L (3.5-5.1)
[2021-01-24 03:54] LABS: Troponin I 0.093 NG/ML (0.00-0.045)
[2021-01-24 04:11] LABS: PT Patient Result 11.1 SECS (9.8-11.9); Partial Thromboplastin Time 29.4 SECS (23.9-33.8)
[2021-01-24] MEDS: INSULIN REGULAR 100 UNIT/ML IV SCH ×2 (04:41→07:28)
[2021-01-24] MEDS: PANTOPRAZOLE 40 MG VIAL IV SCH (08:05)
[2021-01-24] MEDS: PIPERACILLIN/TAZOBACTAM 3,375 MG in SODIUM CHLORIDE 0.9% 100 ML IV SCH ×2 (08:12→21:19)
[2021-01-24 09:02] LABS: Basophils % 0.4 % (0.0-0.8); Eosinophils # 0.2 10*3/uL (0.0-0.87); Eosinophils % 1.9 % (0.00-10.9); Hematocrit 29.1 VOL% (35.7-47.0); Hemoglobin 9.1 GM/DL (12.0-16.0); Immature Granulocytes % 0.8 %; Immature Granulocytes Absolute 0.09 #; Lymphocytes # 1.3 10*3/uL (1.4-4.0); Mean Corpuscular HGB Conc 31.3 GM/DL (32-36); Mean Corpuscular Volume 84.6 FL (87-102); Mean Platelet Volume 10.8 FL (9.6-12.0); Monocytes % 2.9 % (1.7-12.7); Platelet Count 224 T/CUMM (130-400); Red Blood Count 3.44 MC/CUMM (3.8-5.5); Red Cell Distribution Width 16.1 % (9.3-17.3); White Blood Count 11.4 T/CUMM (4-12)
[2021-01-24 09:13] LABS: PT Patient Result 11.4 SECS (9.8-11.9); Partial Thromboplastin Time 29.4 SECS (23.9-33.8)
[2021-01-24 09:19] LABS: ABG Base Excess -0.2 MMOL/L (-2.5-2.5); ABG HCO3 24.3 MMOL/L (20-26); ABG Oxygen Saturation 99.9 % (95-100); ABG PCO2 33.7 MM HG (35-48); ABG PH 7.447 (7.35-7.45); ABG TCO2 20.6 MMOL/L (23-27)
[2021-01-24 09:22] LABS: Albumin 1.3 G/DL (3.4-5.0); Bilirubin,Total 0.4 MG/DL (0.2-1.0); Calcium 7.3 MG/DL (8.5-10.1); Potassium 3.9 MMOL/L (3.5-5.1); Total Protein 5.1 G/DL (6.4-8.2); Troponin I 0.063 NG/ML (0.00-0.045)
[2021-01-24 09:33] LABS: Eosinophils 2 % (0-10); Hypochromasia 1+; Lymphocytes 9 % (20-55); Microcytosis 1+; Platelet Estimate Adequate; Segmented Neutrophils 88 % (50-85); Total Cells Counted 100
[2021-01-24] MEDS: INSULIN GLARGINE 100 UNIT/ML SUBCUT SCH (09:34)
[2021-01-24] MEDS: fentaNYL INJ 1,250 MCG in SODIUM CHLORIDE 0.9% 225 ML IV PRN (10:40)
[2021-01-24] MEDS ORDERED: HEPARIN 10,000 UNIT/10 ML VIAL IV PRN (11:19)
[2021-01-24] MEDS: INSULIN REGULAR 100 UNIT/ML SUBCUT SCH ×4 (13:47→20:25)
[2021-01-24 14:15] LABS: Basophils # 0.1 10*3/uL (0.0-0.2); Basophils % 0.6 % (0.0-0.8); Eosinophils # 0.2 10*3/uL (0.0-0.87); Eosinophils % 1.7 % (0.00-10.9); Hematocrit 32.6 VOL% (35.7-47.0); Hemoglobin 10.3 GM/DL (12.0-16.0); Immature Granulocytes % 0.8 %; Immature Granulocytes Absolute 0.11 #; Lymphocytes # 1.5 10*3/uL (1.4-4.0); Lymphocytes % 10.1 % (21.3-54.2); Mean Corpuscular HGB Conc 31.6 GM/DL (32-36); Mean Corpuscular Volume 83.6 FL (87-102); Monocytes % 3.1 % (1.7-12.7); Neutrophils % 83.7 % (38.7-73.9); Platelet Count 262 T/CUMM (130-400); Red Cell Distribution Width 16.3 % (9.3-17.3); White Blood Count 14.5 T/CUMM (4-12)
[2021-01-24 14:25] LABS: Calcium 7.6 MG/DL (8.5-10.1); INR 1.1; PT Patient Result 11.9 SECS (9.8-11.9); Partial Thromboplastin Time 31.3 SECS (23.9-33.8); Potassium 3.4 MMOL/L (3.5-5.1)
[2021-01-24 14:43] LABS: Band Neutrophils 7 % (0-10); Eosinophils 4 % (0-10); Lymphocytes 8 % (20-55); Segmented Neutrophils 79 % (50-85); Total Cells Counted 100
[2021-01-24 14:44] LABS: Burr Cells Few; Hypochromasia Slight; Microcytosis Slight; Ovalocytes Few; Platelet Estimate Normal; Polychromasia Slight
[2021-01-24] MEDS: POTASSIUM CHLORIDE RIDER 20 MEQ in PREMIX 1 EACH IV PRN (15:36)
[2021-01-24] MEDS: NOREPINEPHRINE 8 MG in SODIUM CHLORIDE 0.9% 242 ML IV SCH (15:39)
[2021-01-25] MEDS: INSULIN REGULAR 100 UNIT/ML SUBCUT SCH ×6 (00:27→19:08)
[2021-01-25 03:35] LABS: Basophils # 0.1 10*3/uL (0.0-0.2); Basophils % 0.5 % (0.0-0.8); Eosinophils # 0.3 10*3/uL (0.0-0.87); Eosinophils % 1.8 % (0.00-10.9); Hematocrit 31.1 VOL% (35.7-47.0); Hemoglobin 9.7 GM/DL (12.0-16.0); Immature Granulocytes % 1.2 %; Immature Granulocytes Absolute 0.19 #; Lymphocytes # 2.8 10*3/uL (1.4-4.0); Lymphocytes % 17.4 % (21.3-54.2); Mean Corpuscular HGB Conc 31.2 GM/DL (32-36); Mean Corpuscular Volume 85.4 FL (87-102); Mean Platelet Volume 11.2 FL (9.6-12.0); Monocytes % 4.4 % (1.7-12.7); Neutrophils % 74.7 % (38.7-73.9); Platelet Count 249 T/CUMM (130-400); Red Blood Count 3.64 MC/CUMM (3.8-5.5); Red Cell Distribution Width 16.1 % (9.3-17.3)
[2021-01-25 03:37] LABS: ABG Base Excess -1.7 MMOL/L (-2.5-2.5); ABG Oxygen Saturation 99.9 % (95-100); ABG PCO2 42.1 MM HG (35-48); ABG PH 7.358 (7.35-7.45); ABG TCO2 21.5 MMOL/L (23-27)
[2021-01-25 03:52] LABS: Albumin 1.2 G/DL (3.4-5.0); Bilirubin,Total 0.5 MG/DL (0.2-1.0); Calcium 7.5 MG/DL (8.5-10.1); Osmolality,Calculated 275.7 MOS/KG (273-304); Potassium 4.3 MMOL/L (3.5-5.1); Total Protein 5.7 G/DL (6.4-8.2)
[2021-01-25 04:25] LABS: Band Neutrophils 2 % (0-10); Eosinophils 2 % (0-10); Lymphocytes 18 % (20-55); Segmented Neutrophils 74 % (50-85)
[2021-01-25 04:27] LABS: Hypochromasia 1+; Platelet Estimate Normal; Reactive Lymphocytes Few
[2021-01-25 04:28] LABS: Polychromasia Few; Total Cells Counted 100
[2021-01-25] MEDS: fentaNYL INJ 1,250 MCG in SODIUM CHLORIDE 0.9% 225 ML IV PRN (05:47)
[2021-01-25] MEDS: PANTOPRAZOLE 40 MG VIAL IV SCH (08:17)
[2021-01-25] MEDS: INSULIN GLARGINE 100 UNIT/ML SUBCUT SCH (08:17)
[2021-01-25] MEDS: PIPERACILLIN/TAZOBACTAM 3,375 MG in SODIUM CHLORIDE 0.9% 100 ML IV SCH ×2 (08:17→20:15)
[2021-01-25] MEDS ORDERED: VANCOMYCIN INJ 750 MG in SODIUM CHLORIDE 0.9% 250 ML IV PRN (14:45)
[2021-01-25] MEDS ORDERED: VANCOMYCIN INJ 1,000 MG in SODIUM CHLORIDE 0.9% 250 ML IV SCH (15:00)
[2021-01-25] MEDS ORDERED: VANCOMYCIN INJ 1,750 MG in SODIUM CHLORIDE 0.9% 500 ML IV ONE (15:30)
[2021-01-25] MEDS: fentaNYL 25 MCG/HR PATCH TRANSDERM SCH (15:37)
[2021-01-25] MEDS: NOREPINEPHRINE 8 MG in SODIUM CHLORIDE 0.9% 242 ML IV SCH (17:45)
[2021-01-26] MEDS: INSULIN REGULAR 100 UNIT/ML SUBCUT SCH ×7 (00:56→23:48)
[2021-01-26 03:36] LABS: ABG Base Excess -2.3 MMOL/L (-2.5-2.5); ABG HCO3 21.4 MMOL/L (20-26); ABG Oxygen Saturation 99.2 % (95-100); ABG PCO2 32.9 MM HG (35-48); ABG PH 7.432 (7.35-7.45); ABG PO2 200.7 MM HG (80-95); ABG TCO2 22.5 MMOL/L (23-27)
[2021-01-26 03:42] LABS: Basophils # 0.1 10*3/uL (0.0-0.2); Basophils % 0.5 % (0.0-0.8); Eosinophils # 0.4 10*3/uL (0.0-0.87); Eosinophils % 2.7 % (0.00-10.9); Hematocrit 28.5 VOL% (35.7-47.0); Hemoglobin 8.7 GM/DL (12.0-16.0); Immature Granulocytes % 0.9 %; Immature Granulocytes Absolute 0.12 #; Lymphocytes # 1.9 10*3/uL (1.4-4.0); Lymphocytes % 13.7 % (21.3-54.2); Mean Corpuscular HGB Conc 30.5 GM/DL (32-36); Mean Corpuscular Volume 86.4 FL (87-102); Monocytes % 5.7 % (1.7-12.7); NRBC # 0.02 10*3/uL; Neutrophils % 76.5 % (38.7-73.9); Platelet Count 221 T/CUMM (130-400); Red Cell Distribution Width 15.7 % (9.3-17.3); White Blood Count 13.6 T/CUMM (4-12)
[2021-01-26 04:02] LABS: Calcium 7.3 MG/DL (8.5-10.1); Eosinophils 3 % (0-10); Hypochromasia Slight; Lymphocytes 15 % (20-55); Osmolality,Calculated 276.8 MOS/KG (273-304); Platelet Estimate Normal; Potassium 3.6 MMOL/L (3.5-5.1); Segmented Neutrophils 80 % (50-85); Total Cells Counted 100
[2021-01-26 04:11] LABS: Osmolality,Calculated 278.7 MOS/KG (273-304); Potassium 3.7 MMOL/L (3.5-5.1)
[2021-01-26] MEDS: PIPERACILLIN/TAZOBACTAM 3,375 MG in SODIUM CHLORIDE 0.9% 100 ML IV SCH ×2 (08:46→20:37)
[2021-01-26] MEDS: PANTOPRAZOLE 40 MG VIAL IV SCH (08:47)
[2021-01-26] MEDS: INSULIN GLARGINE 100 UNIT/ML SUBCUT SCH (08:47)
[2021-01-26] MEDS: NOREPINEPHRINE 8 MG in SODIUM CHLORIDE 0.9% 242 ML IV SCH (16:58)
[2021-01-26] MEDS: cloNIDine 0.1 MG TABLET PO SCH (18:47)
[2021-01-26] MEDS: carvediloL 6.25 MG TABLET PO SCH (18:47)
[2021-01-26] MEDS: MORPHINE 4 MG/1 ML VIAL IV PRN (19:16)
[2021-01-26] MEDS ORDERED: VANCOMYCIN INJ 750 MG in SODIUM CHLORIDE 0.9% 250 ML IV ONE (21:00)
[2021-01-27 03:54] LABS: Basophils # 0.1 10*3/uL (0.0-0.2); Basophils % 0.5 % (0.0-0.8); Eosinophils # 0.3 10*3/uL (0.0-0.87); Eosinophils % 3.1 % (0.00-10.9); Hematocrit 26.5 VOL% (35.7-47.0); Hemoglobin 7.9 GM/DL (12.0-16.0); Immature Granulocytes % 0.6 %; Immature Granulocytes Absolute 0.06 #; Lymphocytes # 2.1 10*3/uL (1.4-4.0); Lymphocytes % 21.9 % (21.3-54.2); Mean Corpuscular HGB Conc 29.8 GM/DL (32-36); Mean Corpuscular Volume 88.3 FL (87-102); Mean Platelet Volume 11.5 FL (9.6-12.0); Monocytes % 9.1 % (1.7-12.7); NRBC # 0.03 10*3/uL; Neutrophils % 64.8 % (38.7-73.9); Platelet Count 233 T/CUMM (130-400); Red Cell Distribution Width 15.4 % (9.3-17.3); White Blood Count 9.4 T/CUMM (4-12)
[2021-01-27 03:56] LABS: ABG Base Excess -1.6 MMOL/L (-2.5-2.5); ABG HCO3 23.1 MMOL/L (20-26); ABG PCO2 33.3 MM HG (35-48); ABG PH 7.433 (7.35-7.45); ABG TCO2 20.6 MMOL/L (23-27)
[2021-01-27 04:12] LABS: Calcium 7.4 MG/DL (8.5-10.1); Osmolality,Calculated 280.5 MOS/KG (273-304); Potassium 3.3 MMOL/L (3.5-5.1)
[2021-01-27] MEDS: INSULIN REGULAR 100 UNIT/ML SUBCUT SCH ×5 (04:12→19:54)
[2021-01-27 04:43] LABS: Burr Cells Slight; Eosinophils 3 % (0-10); Hypochromasia 1+; Lymphocytes 26 % (20-55); Microcytosis 1+; Nucleated Red Blood Cells 1 (0-5); Ovalocytes Slight; Platelet Estimate Adequate; Segmented Neutrophils 65 % (50-85); Total Cells Counted 100
[2021-01-27] MEDS: POTASSIUM CHLORIDE RIDER 20 MEQ in PREMIX 1 EACH IV PRN (05:53)
[2021-01-27] MEDS: PIPERACILLIN/TAZOBACTAM 3,375 MG in SODIUM CHLORIDE 0.9% 100 ML IV SCH ×2 (08:22→21:07)
[2021-01-27] MEDS: amLODIPine 2.5 MG TABLET PO SCH (08:24)
[2021-01-27] MEDS: INSULIN GLARGINE 100 UNIT/ML SUBCUT SCH (08:31)
[2021-01-27] MEDS: carvediloL 6.25 MG TABLET PO SCH ×2 (08:31→21:07)
[2021-01-27] MEDS: PANTOPRAZOLE 40 MG VIAL IV SCH (08:32)
[2021-01-27] MEDS: MORPHINE 4 MG/1 ML VIAL IV PRN ×2 (13:35→21:08)
[2021-01-27] MEDS: hydrALAZINE 20 MG/1 ML VIAL IV PRN (14:26)
[2021-01-27] MEDS: NOREPINEPHRINE 8 MG in SODIUM CHLORIDE 0.9% 242 ML IV SCH (16:59)
[2021-01-27] MEDS: DEXTROSE 50% 25 GM/50 ML VIAL IV PRN (19:50)
[2021-01-27] MEDS: cloNIDine 0.1 MG TABLET PO SCH (21:07)
[2021-01-28] MEDS: INSULIN REGULAR 100 UNIT/ML SUBCUT SCH ×6 (00:26→20:39)
[2021-01-28 04:15] LABS: Basophils # 0.1 10*3/uL (0.0-0.2); Basophils % 0.7 % (0.0-0.8); Eosinophils # 0.4 10*3/uL (0.0-0.87); Eosinophils % 5.3 % (0.00-10.9); Hematocrit 23.4 VOL% (35.7-47.0); Hemoglobin 7.2 GM/DL (12.0-16.0); Immature Granulocytes % 1.2 %; Immature Granulocytes Absolute 0.09 #; Lymphocytes # 1.8 10*3/uL (1.4-4.0); Lymphocytes % 23.3 % (21.3-54.2); Mean Corpuscular HGB Conc 30.8 GM/DL (32-36); Mean Corpuscular Volume 86.3 FL (87-102); Mean Platelet Volume 10.8 FL (9.6-12.0); Monocytes % 11.5 % (1.7-12.7); NRBC # 0.03 10*3/uL; Platelet Count 212 T/CUMM (130-400); Red Blood Count 2.71 MC/CUMM (3.8-5.5); Red Cell Distribution Width 15.6 % (9.3-17.3); White Blood Count 7.5 T/CUMM (4-12)
[2021-01-28 04:22] LABS: ABG Base Excess -3.2 MMOL/L (-2.5-2.5); ABG HCO3 21.8 MMOL/L (20-26); ABG PCO2 35.8 MM HG (35-48); ABG PH 7.385 (7.35-7.45); ABG TCO2 20.2 MMOL/L (23-27)
[2021-01-28 04:28] LABS: Calcium 7.5 MG/DL (8.5-10.1); Osmolality,Calculated 284.4 MOS/KG (273-304); Potassium 3.1 MMOL/L (3.5-5.1)
[2021-01-28 04:35] LABS: Band Neutrophils 1 % (0-10); Eosinophils 12 % (0-10); Hypochromasia 2+; Lymphocytes 21 % (20-55); Microcytosis 1+; Ovalocytes Slight; Platelet Estimate Adequate; Segmented Neutrophils 61 % (50-85); Total Cells Counted 100
[2021-01-28] MEDS: DEXTROSE 50% 25 GM/50 ML VIAL IV PRN (04:37)
[2021-01-28] MEDS: PANTOPRAZOLE 40 MG VIAL IV SCH (09:02)
[2021-01-28] MEDS: carvediloL 6.25 MG TABLET PO SCH ×2 (09:03→20:59)
[2021-01-28] MEDS: fentaNYL 25 MCG/HR PATCH TRANSDERM SCH (09:03)
[2021-01-28] MEDS: amLODIPine 2.5 MG TABLET PO SCH (09:04)
[2021-01-28] MEDS: INSULIN GLARGINE 100 UNIT/ML SUBCUT SCH (09:04)
[2021-01-28] MEDS: PIPERACILLIN/TAZOBACTAM 3,375 MG in SODIUM CHLORIDE 0.9% 100 ML IV SCH ×2 (09:06→20:59)
[2021-01-28] MEDS: POTASSIUM CHLORIDE RIDER 20 MEQ in PREMIX 1 EACH IV PRN ×2 (09:54→12:32)
[2021-01-28] MEDS: MORPHINE 4 MG/1 ML VIAL IV PRN (16:31)
[2021-01-28] MEDS: cloNIDine 0.1 MG TABLET PO SCH (20:59)
[2021-01-29] MEDS: DEXTROSE 50% 25 GM/50 ML VIAL IV PRN (00:18)
[2021-01-29] MEDS: INSULIN REGULAR 100 UNIT/ML SUBCUT SCH ×7 (00:26→23:43)
[2021-01-29 04:42] LABS: ABG Base Excess -3.3 MMOL/L (-2.5-2.5); ABG HCO3 21.7 MMOL/L (20-26); ABG PCO2 35.7 MM HG (35-48); ABG PH 7.382 (7.35-7.45); ABG TCO2 19.4 MMOL/L (23-27)
[2021-01-29 04:50] LABS: Basophils # 0.1 10*3/uL (0.0-0.2); Basophils % 0.8 % (0.0-0.8); Eosinophils # 0.5 10*3/uL (0.0-0.87); Eosinophils % 5.8 % (0.00-10.9); Hematocrit 22.5 VOL% (35.7-47.0); Hemoglobin 7.1 GM/DL (12.0-16.0); Immature Granulocytes % 3.8 %; Lymphocytes # 2.1 10*3/uL (1.4-4.0); Lymphocytes % 26.9 % (21.3-54.2); Mean Corpuscular HGB Conc 31.6 GM/DL (32-36); Mean Corpuscular Volume 83.6 FL (87-102); Mean Platelet Volume 11.3 FL (9.6-12.0); Monocytes % 10.6 % (1.7-12.7); NRBC # 0.03 10*3/uL; Neutrophils % 52.1 % (38.7-73.9); Platelet Count 244 T/CUMM (130-400); Red Blood Count 2.69 MC/CUMM (3.8-5.5); Red Cell Distribution Width 15.6 % (9.3-17.3); White Blood Count 7.9 T/CUMM (4-12)
[2021-01-29 05:11] LABS: Calcium 7.9 MG/DL (8.5-10.1); Osmolality,Calculated 290.3 MOS/KG (273-304); Potassium 3.6 MMOL/L (3.5-5.1)
[2021-01-29] MEDS: PANTOPRAZOLE 40 MG VIAL IV SCH (08:30)
[2021-01-29] MEDS: carvediloL 6.25 MG TABLET PO SCH ×2 (08:33→20:37)
[2021-01-29] MEDS: amLODIPine 2.5 MG TABLET PO SCH (08:33)
[2021-01-29] MEDS: PIPERACILLIN/TAZOBACTAM 3,375 MG in SODIUM CHLORIDE 0.9% 100 ML IV SCH ×2 (08:34→20:20)
[2021-01-29] MEDS: INSULIN GLARGINE 100 UNIT/ML SUBCUT SCH (08:55)
[2021-01-29] MEDS: DESITIN 4OZ/NYSTATIN 15 GRAM MIXTURE PASTE TOP SCH ×2 (11:32→20:20)
[2021-01-29] MEDS: hydrALAZINE 20 MG/1 ML VIAL IV PRN (15:40)
[2021-01-29 16:20] LABS: Calcium 8.3 MG/DL (8.5-10.1); Osmolality,Calculated 280.4 MOS/KG (273-304); Potassium 3.2 MMOL/L (3.5-5.1)
[2021-01-29] MEDS: POTASSIUM CHLORIDE RIDER 20 MEQ in PREMIX 1 EACH IV PRN ×2 (16:37→20:24)
[2021-01-29] MEDS: ONDANSETRON 4 MG/2 ML VIAL IV PRN (20:25)
[2021-01-29] MEDS ORDERED: METOPROLOL TARTRATE 5 MG/5 ML VIAL IV ONE (20:37)
[2021-01-29] MEDS: cloNIDine 0.1 MG TABLET PO SCH (20:37)
[2021-01-29] MEDS ORDERED: PHENOL 1.4% THROAT SPRAY 177 ML BOTTLE PO PRN (23:55)
[2021-01-29] MEDS: MORPHINE 4 MG/1 ML VIAL IV PRN (23:55)
[2021-01-30 04:40] LABS: ABG Base Excess 0.7 MMOL/L (-2.5-2.5); ABG HCO3 25.1 MMOL/L (20-26); ABG PCO2 45.7 MM HG (35-48); ABG PH 7.367 (7.35-7.45); ABG TCO2 24.4 MMOL/L (23-27)
[2021-01-30 04:55] LABS: Basophils # 0.1 10*3/uL (0.0-0.2); Eosinophils # 0.5 10*3/uL (0.0-0.87); Eosinophils % 4.8 % (0.00-10.9); Hematocrit 25.5 VOL% (35.7-47.0); Hemoglobin 8.2 GM/DL (12.0-16.0); Immature Granulocytes % 2.9 %; Immature Granulocytes Absolute 0.31 #; Lymphocytes # 2.5 10*3/uL (1.4-4.0); Lymphocytes % 22.7 % (21.3-54.2); Mean Corpuscular HGB Conc 32.2 GM/DL (32-36); Mean Corpuscular Volume 83.3 FL (87-102); Mean Platelet Volume 10.3 FL (9.6-12.0); Monocytes % 9.9 % (1.7-12.7); NRBC # 0.02 10*3/uL; Neutrophils % 58.7 % (38.7-73.9); Platelet Count 342 T/CUMM (130-400); Red Blood Count 3.06 MC/CUMM (3.8-5.5); Red Cell Distribution Width 15.6 % (9.3-17.3); White Blood Count 10.8 T/CUMM (4-12)
[2021-01-30 05:06] LABS: Calcium 8.2 MG/DL (8.5-10.1); Osmolality,Calculated 280.5 MOS/KG (273-304); Potassium 3.7 MMOL/L (3.5-5.1)
[2021-01-30] MEDS: INSULIN REGULAR 100 UNIT/ML SUBCUT SCH ×6 (05:22→23:23)
[2021-01-30] MEDS: POTASSIUM CHLORIDE RIDER 20 MEQ in PREMIX 1 EACH IV PRN (06:19)
[2021-01-30] MEDS: PANTOPRAZOLE 40 MG VIAL IV SCH ×2 (08:48→20:36)
[2021-01-30] MEDS: ALBUTEROL 2.5 MG/3 ML NEB RESP TX PRN (08:49)
[2021-01-30] MEDS: ONDANSETRON 4 MG/2 ML VIAL IV PRN ×3 (09:15→23:14)
[2021-01-30] MEDS: INSULIN GLARGINE 100 UNIT/ML SUBCUT SCH (09:40)
[2021-01-30] MEDS: DESITIN 4OZ/NYSTATIN 15 GRAM MIXTURE PASTE TOP SCH ×2 (09:40→20:40)
[2021-01-30] MEDS: amLODIPine 2.5 MG TABLET PO SCH (09:40)
[2021-01-30] MEDS: carvediloL 6.25 MG TABLET PO SCH ×2 (09:40→21:38)
[2021-01-30] MEDS: hydrALAZINE 20 MG/1 ML VIAL IV PRN ×2 (12:27→21:08)
[2021-01-30] MEDS ORDERED: NITROGLYCERIN SL 0.4 MG TABLET SL ONE ×2 (12:39→12:41)
[2021-01-30] MEDS: MORPHINE 4 MG/1 ML VIAL IV PRN (12:44)
[2021-01-30 13:16] LABS: Alanine Aminotransferase 66 U/L (13-56); Albumin 1.3 G/DL (3.4-5.0); Alkaline Phosphatase 513 U/L (45-117); Aspartate Amino Transferase 48 U/L (0-37); Bilirubin,Total < 0.39 MG/DL (0.2-1.0); Blood Urea Nitrogen 24 MG/DL (7-18); Calcium 8.7 MG/DL (8.5-10.1); Carbon Dioxide 26 MMOL/L (21-32); Estimated Glom Filtration Rate 21 ML/MIN; Glucose 134 MG/DL (74-106); Potassium 4.1 MMOL/L (3.5-5.1); Sodium 143 MMOL/L (136-145); Total Protein 6.7 G/DL (6.4-8.2)
[2021-01-30] MEDS ORDERED: hydrALAZINE 20 MG/1 ML VIAL IV SCH (16:38)
[2021-01-30] MEDS: PROMETHAZINE INJ 12.5 MG in SODIUM CHLORIDE 0.9% 50 ML IV PRN (16:44)
[2021-01-30] MEDS ORDERED: METOPROLOL TARTRATE 5 MG/5 ML VIAL IV PRN (17:42)
[2021-01-30] MEDS: ENALAPRIL 2.5 MG/2 ML VIAL IV SCH ×2 (18:37→23:15)
[2021-01-30] MEDS: cloNIDine 0.1 MG TABLET PO SCH (21:38)
[2021-01-31 03:56] LABS: Basophils # 0.2 10*3/uL (0.0-0.2); Basophils % 1.1 % (0.0-0.8); Eosinophils # 0.5 10*3/uL (0.0-0.87); Eosinophils % 3.3 % (0.00-10.9); Hemoglobin 8.2 GM/DL (12.0-16.0); Immature Granulocytes % 1.8 %; Immature Granulocytes Absolute 0.25 #; Lymphocytes # 2.6 10*3/uL (1.4-4.0); Lymphocytes % 18.8 % (21.3-54.2); Mean Corpuscular HGB Conc 30.4 GM/DL (32-36); Mean Corpuscular Volume 87.7 FL (87-102); Mean Platelet Volume 9.9 FL (9.6-12.0); Monocytes % 7.4 % (1.7-12.7); NRBC # 0.02 10*3/uL; Neutrophils % 67.6 % (38.7-73.9); Platelet Count 424 T/CUMM (130-400); Red Blood Count 3.08 MC/CUMM (3.8-5.5); Red Cell Distribution Width 15.4 % (9.3-17.3); White Blood Count 13.7 T/CUMM (4-12)
[2021-01-31 04:13] LABS: Calcium 8.7 MG/DL (8.5-10.1); Osmolality,Calculated 292.8 MOS/KG (273-304); Potassium 4.2 MMOL/L (3.5-5.1)
[2021-01-31] MEDS: INSULIN REGULAR 100 UNIT/ML SUBCUT SCH ×5 (04:33→20:11)
[2021-01-31] MEDS: ENALAPRIL 2.5 MG/2 ML VIAL IV SCH ×3 (06:05→17:08)
[2021-01-31] MEDS: amLODIPine 2.5 MG TABLET PO SCH (08:10)
[2021-01-31] MEDS: carvediloL 6.25 MG TABLET PO SCH ×2 (08:10→20:31)
[2021-01-31] MEDS: INSULIN GLARGINE 100 UNIT/ML SUBCUT SCH (08:10)
[2021-01-31] MEDS: PANTOPRAZOLE 40 MG VIAL IV SCH ×2 (08:20→20:31)
[2021-01-31] MEDS: fentaNYL 25 MCG/HR PATCH TRANSDERM SCH (08:21)
[2021-01-31] MEDS: MORPHINE 4 MG/1 ML VIAL IV PRN ×3 (08:39→20:39)
[2021-01-31] MEDS: DESITIN 4OZ/NYSTATIN 15 GRAM MIXTURE PASTE TOP SCH ×2 (08:40→20:32)
[2021-01-31] MEDS: ERYTHROMYCIN INJ 250 MG in SODIUM CHLORIDE 0.9% 100 ML IV SCH ×3 (11:13→22:26)
[2021-01-31] MEDS: ALBUTEROL 2.5 MG/3 ML NEB RESP TX PRN (14:55)
[2021-01-31] MEDS: cloNIDine 0.1 MG TABLET PO SCH (20:31)
[2021-01-31] MEDS: lisinopriL 20 MG TABLET PO SCH (20:31)
[2021-01-31] MEDS: ONDANSETRON 4 MG/2 ML VIAL IV PRN (20:38)
[2021-02-01] MEDS: ONDANSETRON 4 MG/2 ML VIAL IV PRN (02:47)
[2021-02-01] MEDS: MORPHINE 4 MG/1 ML VIAL IV PRN (03:28)
[2021-02-01] MEDS: ERYTHROMYCIN INJ 250 MG in SODIUM CHLORIDE 0.9% 100 ML IV SCH ×4 (03:29→21:53)
[2021-02-01 03:56] LABS: Basophils # 0.1 10*3/uL (0.0-0.2); Basophils % 0.9 % (0.0-0.8); Eosinophils # 0.4 10*3/uL (0.0-0.87); Eosinophils % 4.2 % (0.00-10.9); Hematocrit 25.5 VOL% (35.7-47.0); Hemoglobin 7.8 GM/DL (12.0-16.0); Immature Granulocytes % 0.9 %; Immature Granulocytes Absolute 0.09 #; Lymphocytes # 2.6 10*3/uL (1.4-4.0); Lymphocytes % 25.9 % (21.3-54.2); Mean Corpuscular HGB Conc 30.6 GM/DL (32-36); Mean Corpuscular Volume 85.9 FL (87-102); Mean Platelet Volume 9.7 FL (9.6-12.0); Monocytes % 8.7 % (1.7-12.7); Neutrophils % 59.4 % (38.7-73.9); Platelet Count 451 T/CUMM (130-400); Red Blood Count 2.97 MC/CUMM (3.8-5.5); Red Cell Distribution Width 14.9 % (9.3-17.3); White Blood Count 10.1 T/CUMM (4-12)
[2021-02-01 04:04] LABS: Calcium 8.1 MG/DL (8.5-10.1); Osmolality,Calculated 281.4 MOS/KG (273-304); Potassium 3.9 MMOL/L (3.5-5.1)
[2021-02-01 04:08] LABS: Albumin 1.4 G/DL (3.4-5.0); Calcium 8.6 MG/DL (8.5-10.1); Osmolality,Calculated 279.5 MOS/KG (273-304); Potassium 3.8 MMOL/L (3.5-5.1); Total Protein 6.4 G/DL (6.4-8.2)
[2021-02-01] MEDS: INSULIN REGULAR 100 UNIT/ML SUBCUT SCH ×4 (08:15→21:15)
[2021-02-01] MEDS: lisinopriL 20 MG TABLET PO SCH ×2 (09:23→21:52)
[2021-02-01] MEDS: carvediloL 6.25 MG TABLET PO SCH ×2 (09:23→21:52)
[2021-02-01] MEDS: PROMETHAZINE INJ 12.5 MG in SODIUM CHLORIDE 0.9% 50 ML IV PRN (09:24)
[2021-02-01] MEDS: PANTOPRAZOLE 40 MG VIAL IV SCH ×2 (09:25→21:58)
[2021-02-01] MEDS: INSULIN GLARGINE 100 UNIT/ML SUBCUT SCH (09:26)
[2021-02-01] MEDS: DESITIN 4OZ/NYSTATIN 15 GRAM MIXTURE PASTE TOP SCH ×2 (10:01→21:53)
[2021-02-01 16:43] LABS: % Iron Saturation 20.8 % (18-50); Ferritin 1073.8 ng/ml (8-252)
[2021-02-01 16:48] LABS: Vitamin B12 > 2000 PG/ML (211-911)
[2021-02-01] MEDS: SEVELAMER CARBONATE 800 MG TABLET PO SCH (17:30)
[2021-02-01] MEDS: cloNIDine 0.1 MG TABLET PO SCH (21:52)
[2021-02-01] MEDS: levETIRAcetam 250 MG TABLET PO SCH (21:52)
[2021-02-02] MEDS: MORPHINE 4 MG/1 ML VIAL IV PRN ×4 (03:11→21:15)
[2021-02-02] MEDS: ONDANSETRON 4 MG/2 ML VIAL IV PRN ×4 (03:14→21:17)
[2021-02-02] MEDS: ERYTHROMYCIN INJ 250 MG in SODIUM CHLORIDE 0.9% 100 ML IV SCH ×4 (03:14→21:19)
[2021-02-02 06:33] LABS: Basophils # 0.1 10*3/uL (0.0-0.2); Eosinophils # 0.4 10*3/uL (0.0-0.87); Eosinophils % 4.9 % (0.00-10.9); Hematocrit 23.2 VOL% (35.7-47.0); Hemoglobin 7.4 GM/DL (12.0-16.0); Immature Granulocytes % 0.5 %; Immature Granulocytes Absolute 0.04 #; Lymphocytes # 2.2 10*3/uL (1.4-4.0); Lymphocytes % 26.1 % (21.3-54.2); Mean Corpuscular HGB Conc 31.9 GM/DL (32-36); Mean Corpuscular Volume 83.8 FL (87-102); Mean Platelet Volume 9.9 FL (9.6-12.0); Monocytes % 8.9 % (1.7-12.7); Neutrophils % 58.6 % (38.7-73.9); Platelet Count 409 T/CUMM (130-400); Red Blood Count 2.77 MC/CUMM (3.8-5.5); Red Cell Distribution Width 14.6 % (9.3-17.3); White Blood Count 8.3 T/CUMM (4-12)
[2021-02-02 06:47] LABS: Calcium 8.4 MG/DL (8.5-10.1); Osmolality,Calculated 285.3 MOS/KG (273-304); Potassium 3.6 MMOL/L (3.5-5.1)
[2021-02-02] MEDS: INSULIN REGULAR 100 UNIT/ML SUBCUT SCH ×4 (07:50→20:38)
[2021-02-02] MEDS: lisinopriL 20 MG TABLET PO SCH ×2 (09:38→20:37)
[2021-02-02] MEDS: levETIRAcetam 250 MG TABLET PO SCH ×2 (09:40→20:38)
[2021-02-02] MEDS: SEVELAMER CARBONATE 800 MG TABLET PO SCH ×3 (09:40→17:23)
[2021-02-02] MEDS: carvediloL 6.25 MG TABLET PO SCH ×2 (09:41→20:37)
[2021-02-02] MEDS: INSULIN GLARGINE 100 UNIT/ML SUBCUT SCH (09:41)
[2021-02-02] MEDS: FERROUS SULFATE 325 MG TABLET PO SCH (09:41)
[2021-02-02] MEDS: DESITIN 4OZ/NYSTATIN 15 GRAM MIXTURE PASTE TOP SCH ×2 (09:42→20:37)
[2021-02-02] MEDS: PANTOPRAZOLE 40 MG VIAL IV SCH ×2 (09:42→21:17)
[2021-02-02] MEDS: hydrALAZINE 20 MG/1 ML VIAL IV PRN (12:51)
[2021-02-02] MEDS ORDERED: EPOETIN ALFA-EPBX 10,000 UNIT/ML VIAL SUBCUT SCH (15:43)
[2021-02-02] MEDS: cloNIDine 0.1 MG TABLET PO SCH (20:37)
[2021-02-02] MEDS: CHOLECALCIFEROL 400 UNIT TABLET PO SCH (20:37)
[2021-02-03] MEDS: ERYTHROMYCIN INJ 250 MG in SODIUM CHLORIDE 0.9% 100 ML IV SCH ×4 (03:14→21:52)
[2021-02-03] MEDS: ONDANSETRON 4 MG/2 ML VIAL IV PRN ×4 (04:26→21:51)
[2021-02-03] MEDS: MORPHINE 4 MG/1 ML VIAL IV PRN ×4 (04:27→21:47)
[2021-02-03 06:21] LABS: Basophils # 0.1 10*3/uL (0.0-0.2); Basophils % 0.9 % (0.0-0.8); Eosinophils # 0.3 10*3/uL (0.0-0.87); Eosinophils % 3.8 % (0.00-10.9); Hematocrit 23.8 VOL% (35.7-47.0); Hemoglobin 7.5 GM/DL (12.0-16.0); Immature Granulocytes % 0.3 %; Immature Granulocytes Absolute 0.03 #; Lymphocytes # 2.6 10*3/uL (1.4-4.0); Lymphocytes % 29.4 % (21.3-54.2); Mean Corpuscular HGB Conc 31.5 GM/DL (32-36); Mean Corpuscular Volume 83.2 FL (87-102); Mean Platelet Volume 10.1 FL (9.6-12.0); Monocytes % 7.5 % (1.7-12.7); Neutrophils % 58.1 % (38.7-73.9); Platelet Count 417 T/CUMM (130-400); Red Blood Count 2.86 MC/CUMM (3.8-5.5); Red Cell Distribution Width 14.5 % (9.3-17.3); White Blood Count 8.7 T/CUMM (4-12)
[2021-02-03] MEDS: SEVELAMER CARBONATE 800 MG TABLET PO SCH ×3 (10:29→18:39)
[2021-02-03] MEDS: levETIRAcetam 250 MG TABLET PO SCH ×2 (10:29→21:47)
[2021-02-03] MEDS: FERROUS SULFATE 325 MG TABLET PO SCH (10:29)
[2021-02-03] MEDS: CHOLECALCIFEROL 400 UNIT TABLET PO SCH ×2 (10:29→21:46)
[2021-02-03] MEDS: lisinopriL 20 MG TABLET PO SCH ×2 (10:30→21:47)
[2021-02-03] MEDS: PANTOPRAZOLE 40 MG VIAL IV SCH ×2 (10:30→21:52)
[2021-02-03] MEDS: INSULIN GLARGINE 100 UNIT/ML SUBCUT SCH (10:30)
[2021-02-03] MEDS: carvediloL 6.25 MG TABLET PO SCH ×2 (10:30→21:47)
[2021-02-03] MEDS: INSULIN REGULAR 100 UNIT/ML SUBCUT SCH ×4 (10:31→20:42)
[2021-02-03] MEDS: DESITIN 4OZ/NYSTATIN 15 GRAM MIXTURE PASTE TOP SCH ×2 (10:32→21:46)
[2021-02-03] MEDS: cloNIDine 0.1 MG TABLET PO SCH (21:47)
[2021-02-04] MEDS: ERYTHROMYCIN INJ 250 MG in SODIUM CHLORIDE 0.9% 100 ML IV SCH ×4 (03:28→22:25)
[2021-02-04] MEDS: ONDANSETRON 4 MG/2 ML VIAL IV PRN ×3 (03:31→17:59)
[2021-02-04] MEDS: MORPHINE 4 MG/1 ML VIAL IV PRN ×4 (03:32→21:20)
[2021-02-04 06:19] LABS: Basophils # 0.1 10*3/uL (0.0-0.2); Basophils % 1.1 % (0.0-0.8); Eosinophils # 0.5 10*3/uL (0.0-0.87); Eosinophils % 5.3 % (0.00-10.9); Hematocrit 25.1 VOL% (35.7-47.0); Immature Granulocytes % 0.3 %; Immature Granulocytes Absolute 0.03 #; Lymphocytes # 2.3 10*3/uL (1.4-4.0); Lymphocytes % 23.7 % (21.3-54.2); Mean Corpuscular HGB Conc 31.9 GM/DL (32-36); Mean Corpuscular Volume 83.1 FL (87-102); Mean Platelet Volume 10.3 FL (9.6-12.0); Monocytes % 6.4 % (1.7-12.7); Neutrophils % 63.2 % (38.7-73.9); Platelet Count 465 T/CUMM (130-400); Red Blood Count 3.02 MC/CUMM (3.8-5.5); Red Cell Distribution Width 14.4 % (9.3-17.3); White Blood Count 9.8 T/CUMM (4-12)
[2021-02-04 06:45] LABS: Calcium 8.2 MG/DL (8.5-10.1); Osmolality,Calculated 281.3 MOS/KG (273-304); Potassium 3.4 MMOL/L (3.5-5.1)
[2021-02-04] MEDS: INSULIN REGULAR 100 UNIT/ML SUBCUT SCH ×4 (08:02→21:15)
[2021-02-04] MEDS: CHOLECALCIFEROL 400 UNIT TABLET PO SCH ×2 (10:22→21:14)
[2021-02-04] MEDS: lisinopriL 20 MG TABLET PO SCH ×2 (10:22→21:14)
[2021-02-04] MEDS: SEVELAMER CARBONATE 800 MG TABLET PO SCH ×3 (10:22→16:34)
[2021-02-04] MEDS: levETIRAcetam 250 MG TABLET PO SCH ×2 (10:23→21:14)
[2021-02-04] MEDS: carvediloL 6.25 MG TABLET PO SCH ×2 (10:23→21:14)
[2021-02-04] MEDS: FERROUS SULFATE 325 MG TABLET PO SCH (10:23)
[2021-02-04] MEDS: INSULIN GLARGINE 100 UNIT/ML SUBCUT SCH (10:23)
[2021-02-04] MEDS: PANTOPRAZOLE 40 MG VIAL IV SCH (10:23)
[2021-02-04] MEDS: DESITIN 4OZ/NYSTATIN 15 GRAM MIXTURE PASTE TOP SCH ×2 (10:24→21:20)
[2021-02-04] MEDS: PANTOPRAZOLE 40 MG TABLET PO SCH (18:04)
[2021-02-04] MEDS: cloNIDine 0.1 MG TABLET PO SCH (21:14)
[2021-02-05] MEDS: ERYTHROMYCIN INJ 250 MG in SODIUM CHLORIDE 0.9% 100 ML IV SCH ×3 (03:21→17:06)
[2021-02-05] MEDS: MORPHINE 4 MG/1 ML VIAL IV PRN ×3 (05:00→17:07)
[2021-02-05] MEDS: PANTOPRAZOLE 40 MG TABLET PO SCH ×2 (07:27→18:23)
[2021-02-05] MEDS: INSULIN REGULAR 100 UNIT/ML SUBCUT SCH ×3 (07:41→17:22)
[2021-02-05] MEDS: levETIRAcetam 250 MG TABLET PO SCH (09:49)
[2021-02-05] MEDS: CHOLECALCIFEROL 400 UNIT TABLET PO SCH (09:49)
[2021-02-05] MEDS: FERROUS SULFATE 325 MG TABLET PO SCH (09:49)
[2021-02-05] MEDS: SEVELAMER CARBONATE 800 MG TABLET PO SCH ×3 (09:49→17:06)
[2021-02-05] MEDS: INSULIN GLARGINE 100 UNIT/ML SUBCUT SCH (09:49)
[2021-02-05] MEDS: lisinopriL 20 MG TABLET PO SCH (09:49)
[2021-02-05] MEDS: carvediloL 6.25 MG TABLET PO SCH (09:49)
[2021-02-05] MEDS: DESITIN 4OZ/NYSTATIN 15 GRAM MIXTURE PASTE TOP SCH (09:50)
[2021-02-05 15:43] VITALS: BP 136/73
== END 2021-02-05 18:25 | DRG 207 ==
LOC: EDBD → N.ED 14:51 → SUATTDRO 15:40 → N.EDINP 15:40 → N.CC 17:05 → N.3E 02-01 18:00
PROVIDERS: ADMIT Internal Medicine; ATTEND Internal Medicine

== ENCOUNTER 2022-06-02 20:15 | Inpatient (IN) ==
[2022-06-02] MEDS ORDERED: ONDANSETRON ODT 4 MG TABLET PO STA (22:40)
[2022-06-02] MEDS ORDERED: ACETAMINOPHEN 500 MG TABLET PO STA (22:41)
[2022-06-02] MEDS ORDERED: hydrALAZINE 20 MG/1 ML VIAL IV STA (22:41)
[2022-06-02 22:45] LABS: Basophils # 0.1 10*3/uL (0.0-0.2); Basophils % 0.8 % (0.0-0.8); Eosinophils # 0.5 10*3/uL (0.0-0.87); Eosinophils % 4.9 % (0.00-10.9); Hematocrit 29.5 VOL% (35.7-47.0); Hemoglobin 9.2 GM/DL (12.0-16.0); Immature Granulocytes % 0.4 %; Immature Granulocytes Absolute 0.04 #; Lymphocytes # 1.8 10*3/uL (1.4-4.0); Lymphocytes % 19.3 % (21.3-54.2); Mean Corpuscular HGB Conc 31.2 GM/DL (32-36); Mean Corpuscular Volume 89.4 FL (87-102); Mean Platelet Volume 11.6 FL (9.6-12.0); Monocytes # 0.7 10*3/uL (0.11-0.8); Monocytes % 7.9 % (1.7-12.7); Neutrophils % 66.7 % (38.7-73.9); Platelet Count 180 T/CUMM (130-400); Red Cell Distribution Width 15.3 % (9.3-17.3); White Blood Count 9.1 T/CUMM (4-12)
[2022-06-02 23:00] LABS: Albumin 3.3 G/DL (3.4-5.0); Bilirubin,Total 0.4 MG/DL (0.20-1.00); Potassium 4.3 MMOL/L (3.5-5.1); Total Protein 8.1 G/DL (6.4-8.2)
[2022-06-02] MEDS ORDERED: ONDANSETRON 4 MG/2 ML VIAL IV ONE (23:20)
[2022-06-02 23:30] LABS: PT Patient Result 11.4 SECS (10.1-12.1)
[2022-06-03] MEDS ORDERED: LABETALOL 20 MG/4 ML SYRINGE IV STA
[2022-06-03] MEDS ORDERED: PROMETHAZINE 25 MG/1 ML VIAL IM STA (00:39)
[2022-06-03] MEDS ORDERED: GLUCAGON 1 MG VIAL IM PRN (02:20)
[2022-06-03] MEDS ORDERED: DEXTROSE 10% 250 ML BAG IV PRN (02:20)
[2022-06-03] MEDS ORDERED: hydrALAZINE 20 MG/1 ML VIAL IV PRN (02:20)
[2022-06-03] MEDS ORDERED: PROMETHAZINE 25 MG/1 ML VIAL IM PRN (02:20)
[2022-06-03] MEDS ORDERED: ALUMINUM/MAGNES/SIMETH MAX STR 30 ML UDCUP PO PRN (02:20)
[2022-06-03 03:07] LABS: Basophils # 0.1 10*3/uL (0.0-0.2); Basophils % 0.6 % (0.0-0.8); Eosinophils # 0.4 10*3/uL (0.0-0.87); Eosinophils % 3.8 % (0.00-10.9); Hemoglobin 8.2 GM/DL (12.0-16.0); Immature Granulocytes % 0.4 %; Immature Granulocytes Absolute 0.04 #; Lymphocytes # 1.7 10*3/uL (1.4-4.0); Lymphocytes % 17.9 % (21.3-54.2); Mean Corpuscular HGB Conc 31.5 GM/DL (32-36); Mean Corpuscular Volume 87.5 FL (87-102); Mean Platelet Volume 11.7 FL (9.6-12.0); Monocytes # 0.8 10*3/uL (0.11-0.8); Monocytes % 8.3 % (1.7-12.7); Platelet Count 154 T/CUMM (130-400); Red Blood Count 2.97 MC/CUMM (3.8-5.5); Red Cell Distribution Width 15.4 % (9.3-17.3); White Blood Count 9.4 T/CUMM (4-12)
[2022-06-03 03:22] LABS: Calcium 8.5 MG/DL (8.5-10.1); Osmolality,Calculated 296.5 MOS/KG (273-304); Potassium 3.9 MMOL/L (3.5-5.1)
[2022-06-03] MEDS ORDERED: INSULIN REGULAR 100 UNIT/ML SUBCUT SCH (09:00)
[2022-06-03] MEDS: ONDANSETRON 4 MG/2 ML VIAL IV PRN (10:30)
[2022-06-03] MEDS: INSULIN GLARGINE 100 UNIT/ML SUBCUT SCH (10:31)
[2022-06-03] MEDS: INSULIN REGULAR 100 UNIT/ML SUBCUT SCH ×4 (10:31→20:49)
[2022-06-03] MEDS: PANTOPRAZOLE 40 MG VIAL IV SCH (10:33)
[2022-06-03] MEDS: ACETAMINOPHEN 325 MG TABLET PO PRN (10:33)
[2022-06-03] MEDS: amLODIPine 2.5 MG TABLET PO SCH (10:34)
[2022-06-03] MEDS: carvediloL 6.25 MG TABLET PO SCH ×2 (10:34→20:51)
[2022-06-03] MEDS: HEPARIN 5,000 UNIT/1 ML VIAL SUBCUT SCH ×2 (10:34→20:55)
[2022-06-03] MEDS: DOCUSATE SODIUM 100 MG CAPSULE PO SCH ×2 (10:34→20:51)
[2022-06-03] MEDS: POTASSIUM CHLORIDE 20 MEQ TABLET PO SCH ×2 (10:34→20:51)
[2022-06-03] MEDS: SEVELAMER CARBONATE 800 MG TABLET PO SCH ×3 (10:35→17:08)
[2022-06-03] MEDS ORDERED: HEPARIN 10,000 UNIT/10 ML VIAL IV SCH (13:30)
[2022-06-03] MEDS: cloNIDine 0.1 MG TABLET PO SCH (20:51)
[2022-06-03] MEDS: guaiFENesin/DM ER 600-30 MG TABLET PO SCH (21:29)
[2022-06-04] MEDS: ONDANSETRON 4 MG/2 ML VIAL IV PRN ×2 (00:06→14:02)
[2022-06-04] MEDS: ACETAMINOPHEN 325 MG TABLET PO PRN (04:07)
[2022-06-04] MEDS ORDERED: PHENOL 1.4% THROAT SPRAY 177 ML BOTTLE PO PRN (04:12)
[2022-06-04 05:26] LABS: Calcium 8.2 MG/DL (8.5-10.1); Osmolality,Calculated 268.7 MOS/KG (273-304); Potassium 4.6 MMOL/L (3.5-5.1)
[2022-06-04 07:35] LABS: Basophils # 0.1 10*3/uL (0.0-0.2); Basophils % 0.7 % (0.0-0.8); Eosinophils # 0.3 10*3/uL (0.0-0.87); Eosinophils % 3.5 % (0.00-10.9); Hematocrit 27.7 VOL% (35.7-47.0); Hemoglobin 8.5 GM/DL (12.0-16.0); Immature Granulocytes % 0.3 %; Immature Granulocytes Absolute 0.03 #; Lymphocytes # 1.5 10*3/uL (1.4-4.0); Lymphocytes % 17.8 % (21.3-54.2); Mean Corpuscular HGB Conc 30.7 GM/DL (32-36); Mean Corpuscular Volume 89.1 FL (87-102); Monocytes # 0.8 10*3/uL (0.11-0.8); Monocytes % 9.6 % (1.7-12.7); Neutrophils % 68.1 % (38.7-73.9); Platelet Count 166 T/CUMM (130-400); Red Blood Count 3.11 MC/CUMM (3.8-5.5); Red Cell Distribution Width 15.7 % (9.3-17.3); White Blood Count 8.6 T/CUMM (4-12)
[2022-06-04] MEDS: INSULIN REGULAR 100 UNIT/ML SUBCUT SCH ×4 (08:08→20:32)
[2022-06-04] MEDS: SEVELAMER CARBONATE 800 MG TABLET PO SCH ×3 (08:10→18:03)
[2022-06-04 10:24] LABS: Bacteria,Urine Many /HPF (Few); RBC,Urine 1 /HPF (0-4); Squamous Epithelial Cell,Urine Many /HPF (0-10); Urine Appearance Clear (Clear); Urine Color Yellow (Yellow)
[2022-06-04 10:25] LABS: Bilirubin,Urine Negative (Negative); Blood, Urine Small mg/dL (Negative); Glucose,Urine (UA) 100 mg/dL (Negative); Ketones,Urine Negative (Negative); Nitrite,Urine Negative (Negative); Protein,Urine >=300 mg/dL (Negative); Urine Urobilinogen 0.2 eU/dL (<2.0)
[2022-06-04 10:31] LABS: Barbiturates Screen,Urine Negative (Negative); Benzodiazepines Screen,Urine Negative (Negative); Cannabinoid Screen,Urine Negative (Negative); Opiate Screen,Urine Negative (Negative); Phencyclidine Screen,Urine Negative (Negative)
[2022-06-04] MEDS ORDERED: SKIN HEALING OINT (AQUAPHOR) 50 GM TUBE TOP PRN (11:20)
[2022-06-04] MEDS: HEPARIN 5,000 UNIT/1 ML VIAL SUBCUT SCH ×2 (11:48→20:32)
[2022-06-04] MEDS: amLODIPine 2.5 MG TABLET PO SCH (11:49)
[2022-06-04] MEDS: DOCUSATE SODIUM 100 MG CAPSULE PO SCH ×2 (11:49→20:32)
[2022-06-04] MEDS: PANTOPRAZOLE 40 MG VIAL IV SCH (11:49)
[2022-06-04] MEDS: guaiFENesin/DM ER 600-30 MG TABLET PO SCH ×2 (11:49→20:31)
[2022-06-04] MEDS: POTASSIUM CHLORIDE 20 MEQ TABLET PO SCH ×2 (11:49→20:32)
[2022-06-04] MEDS: carvediloL 6.25 MG TABLET PO SCH ×2 (11:50→20:32)
[2022-06-04] MEDS: CLINDAMYCIN INJ 600 MG/50 ML PREMIX IV SCH ×2 (12:17→20:32)
[2022-06-04] MEDS: INSULIN GLARGINE 100 UNIT/ML SUBCUT SCH (12:23)
[2022-06-04] MEDS: cloNIDine 0.1 MG TABLET PO SCH (20:32)
[2022-06-05] MEDS: ONDANSETRON 4 MG/2 ML VIAL IV PRN ×2 (00:43→05:26)
[2022-06-05] MEDS: CLINDAMYCIN INJ 600 MG/50 ML PREMIX IV SCH ×2 (05:24→16:43)
[2022-06-05 06:04] LABS: Basophils # 0.1 10*3/uL (0.0-0.2); Basophils % 0.7 % (0.0-0.8); Eosinophils # 0.3 10*3/uL (0.0-0.87); Eosinophils % 4.8 % (0.00-10.9); Hematocrit 27.9 VOL% (35.7-47.0); Hemoglobin 8.5 GM/DL (12.0-16.0); Immature Granulocytes % 0.4 %; Immature Granulocytes Absolute 0.03 #; Lymphocytes # 1.5 10*3/uL (1.4-4.0); Lymphocytes % 22.6 % (21.3-54.2); Mean Corpuscular HGB Conc 30.5 GM/DL (32-36); Mean Platelet Volume 11.7 FL (9.6-12.0); Monocytes # 0.7 10*3/uL (0.11-0.8); Monocytes % 9.9 % (1.7-12.7); Neutrophils % 61.6 % (38.7-73.9); Platelet Count 154 T/CUMM (130-400); Red Cell Distribution Width 15.4 % (9.3-17.3); White Blood Count 6.7 T/CUMM (4-12)
[2022-06-05 06:24] LABS: Osmolality,Calculated 277.2 MOS/KG (273-304); Potassium 4.8 MMOL/L (3.5-5.1)
[2022-06-05] MEDS: INSULIN REGULAR 100 UNIT/ML SUBCUT SCH ×3 (08:36→16:43)
[2022-06-05] MEDS: SEVELAMER CARBONATE 800 MG TABLET PO SCH ×3 (09:44→16:34)
[2022-06-05] MEDS: DOCUSATE SODIUM 100 MG CAPSULE PO SCH (09:44)
[2022-06-05] MEDS: POTASSIUM CHLORIDE 20 MEQ TABLET PO SCH (09:44)
[2022-06-05] MEDS: carvediloL 6.25 MG TABLET PO SCH ×2 (09:44→16:34)
[2022-06-05] MEDS: HEPARIN 5,000 UNIT/1 ML VIAL SUBCUT SCH (09:44)
[2022-06-05] MEDS: guaiFENesin/DM ER 600-30 MG TABLET PO SCH (09:45)
[2022-06-05] MEDS: INSULIN GLARGINE 100 UNIT/ML SUBCUT SCH (09:45)
[2022-06-05] MEDS: amLODIPine 2.5 MG TABLET PO SCH ×2 (09:45→16:34)
[2022-06-05 16:24] VITALS: BP 185/101
[2022-06-05] MEDS: PANTOPRAZOLE 40 MG VIAL IV SCH (16:43)
== END 2022-06-05 17:46 | disposition home or self-care (01) | DRG 254 ==
LOC: N.EDINP 20:15 → N.ED 20:15 → SUATTDRO 06-03 02:20 → N.EDINP 06-03 03:34 → N.5E 06-03 03:35 → SUATTDRO 06-03 09:07
PROVIDERS: ADMIT Obstetrics & Gynecology; ATTEND Internal Medicine

== ENCOUNTER 2022-07-13 18:46 | Inpatient (IN) ==
[2022-07-13] MEDS ORDERED: METOCLOPRAMIDE 10 MG/2 ML VIAL IV STA (19:32)
[2022-07-13] MEDS ORDERED: ONDANSETRON 4 MG/2 ML VIAL IV STA (19:32)
[2022-07-13] MEDS ORDERED: hydrALAZINE 20 MG/1 ML VIAL IV STA (19:43)
[2022-07-13] MEDS ORDERED: ALBUTEROL/IPRATROPIUM 3 ML NEB RESP TX STA (19:43)
[2022-07-13] MEDS ORDERED: PIPERACILLIN/TAZOBACTAM 3,375 MG in SODIUM CHLORIDE 0.9% 100 ML IV STA (19:57)
[2022-07-13 20:13] LABS: Albumin 3.4 G/DL (3.4-5.0); Bilirubin,Total 0.5 MG/DL (0.20-1.00); Calcium 8.6 MG/DL (8.5-10.1); Osmolality,Calculated 283.4 MOS/KG (273-304); Potassium 4.7 MMOL/L (3.5-5.1); Total Protein 7.5 G/DL (6.4-8.2)
[2022-07-13] MEDS: SODIUM CHLORIDE 0.9% 1,000 ML IV STA (20:15)
[2022-07-13] MEDS: SODIUM CHLORIDE 0.9% 250 ML IV STA (20:16)
[2022-07-13 20:25] LABS: Basophils % 0.4 % (0.0-0.8); Eosinophils # 0.1 10*3/uL (0.0-0.87); Eosinophils % 1.5 % (0.00-10.9); Hemoglobin 9.8 GM/DL (12.0-16.0); Immature Granulocytes % 0.4 %; Immature Granulocytes Absolute 0.02 #; Lymphocytes # 1.3 10*3/uL (1.4-4.0); Lymphocytes % 27.7 % (21.3-54.2); Mean Corpuscular HGB Conc 31.6 GM/DL (32-36); Mean Corpuscular Volume 86.4 FL (87-102); Monocytes # 0.7 10*3/uL (0.11-0.8); Monocytes % 14.6 % (1.7-12.7); Neutrophils % 55.4 % (38.7-73.9); Platelet Count 137 T/CUMM (130-400); Red Blood Count 3.59 MC/CUMM (3.8-5.5); Red Cell Distribution Width 15.9 % (9.3-17.3); White Blood Count 4.7 T/CUMM (4-12)
[2022-07-13] MEDS ORDERED: SODIUM CHLORIDE 0.9% 250 ML IV STA (21:04)
[2022-07-13] MEDS ORDERED: ACETAMINOPHEN 325 MG TABLET PO PRN (23:39)
[2022-07-13] MEDS ORDERED: GLUCAGON 1 MG VIAL IM PRN (23:39)
[2022-07-13] MEDS ORDERED: DEXTROSE 10% 250 ML BAG IV PRN (23:43)
[2022-07-14] MEDS: ALBUTEROL/IPRATROPIUM 3 ML NEB RESP TX SCH ×7 (00:16→23:15)
[2022-07-14] MEDS: hydrOXYzine HCL 25 MG TABLET PO SCH ×3 (00:49→21:20)
[2022-07-14] MEDS: PIPERACILLIN/TAZOBACTAM 3,375 MG in SODIUM CHLORIDE 0.9% 100 ML IV SCH ×3 (00:49→23:49)
[2022-07-14] MEDS: INSULIN REGULAR 100 UNIT/ML SUBCUT SCH ×4 (02:29→17:59)
[2022-07-14 06:15] LABS: Basophils % 0.5 % (0.0-0.8); Eosinophils % 1.9 % (0.00-10.9); Hematocrit 31.3 VOL% (35.7-47.0); Hemoglobin 10.1 GM/DL (12.0-16.0); Immature Granulocytes % 0.5 %; Lymphocytes % 27.5 % (21.3-54.2); Mean Corpuscular HGB Conc 32.3 GM/DL (32-36); Mean Corpuscular Volume 85.8 FL (87-102); Monocytes % 18.6 % (1.7-12.7); Platelet Count 122 T/CUMM (130-400); Red Blood Count 3.65 MC/CUMM (3.8-5.5); Red Cell Distribution Width 16.1 % (9.3-17.3); White Blood Count 4.3 T/CUMM (4-12)
[2022-07-14 06:16] LABS: Eosinophils # 0.1 10*3/uL (0.0-0.87); Immature Granulocytes Absolute 0.02 #; Lymphocytes # 1.2 10*3/uL (1.4-4.0); Monocytes # 0.8 10*3/uL (0.11-0.8)
[2022-07-14 06:23] LABS: Eosinophils 5 % (0-10); Hypochromia Slight; Lymphocytes 29 % (20-55); Microcytosis Slight; Platelet Estimate Normal; Total Cells Counted 100
[2022-07-14 06:26] LABS: Albumin 3.3 G/DL (3.4-5.0); Bilirubin,Total 0.6 MG/DL (0.20-1.00); Calcium 8.5 MG/DL (8.5-10.1); Osmolality,Calculated 286.2 MOS/KG (273-304); Total Protein 7.4 G/DL (6.4-8.2)
[2022-07-14] MEDS: SODIUM CHLORIDE 0.9% 250 ML IV STA (07:50)
[2022-07-14] MEDS: SODIUM CHLORIDE 0.9% 1,000 ML IV STA (07:50)
[2022-07-14] MEDS: PANTOPRAZOLE 40 MG TABLET PO SCH ×2 (08:20→17:57)
[2022-07-14] MEDS: carvediloL 6.25 MG TABLET PO SCH ×2 (08:21→17:57)
[2022-07-14] MEDS: DOCUSATE SODIUM 100 MG CAPSULE PO SCH ×2 (08:21→21:20)
[2022-07-14] MEDS: amLODIPine 2.5 MG TABLET PO SCH (08:21)
[2022-07-14] MEDS: POTASSIUM CHLORIDE 20 MEQ TABLET PO SCH ×2 (08:21→21:20)
[2022-07-14] MEDS: SEVELAMER CARBONATE 800 MG TABLET PO SCH ×3 (08:21→17:57)
[2022-07-14] MEDS: INSULIN GLARGINE 100 UNIT/ML SUBCUT SCH (08:21)
[2022-07-14] MEDS ORDERED: NON-FORMULARY MEDICATION (Docusate Sodium Cap [Colace Cap] 100 MG) PO SCH (09:00)
[2022-07-14] MEDS ORDERED: INSULIN REGULAR 100 UNIT/ML SUBCUT SCH (09:00)
[2022-07-14] MEDS ORDERED: PANTOPRAZOLE 40 MG TABLET PO SCH (09:00)
[2022-07-14] MEDS: cloNIDine 0.1 MG TABLET PO SCH (21:20)
[2022-07-15] MEDS: INSULIN REGULAR 100 UNIT/ML SUBCUT SCH ×4 (02:20→18:32)
[2022-07-15] MEDS: ALBUTEROL/IPRATROPIUM 3 ML NEB RESP TX SCH ×6 (03:05→23:48)
[2022-07-15 05:48] LABS: Basophils % 0.3 % (0.0-0.8); Eosinophils # 0.2 10*3/uL (0.0-0.87); Eosinophils % 5.8 % (0.00-10.9); Hematocrit 28.6 VOL% (35.7-47.0); Immature Granulocytes % 0.3 %; Immature Granulocytes Absolute 0.01 #; Lymphocytes # 0.9 10*3/uL (1.4-4.0); Lymphocytes % 28.6 % (21.3-54.2); Mean Corpuscular HGB Conc 31.5 GM/DL (32-36); Mean Corpuscular Volume 86.9 FL (87-102); Mean Platelet Volume 12.9 FL (9.6-12.0); Monocytes # 0.4 10*3/uL (0.11-0.8); Monocytes % 12.9 % (1.7-12.7); Neutrophils % 52.1 % (38.7-73.9); Platelet Count 97 T/CUMM (130-400); Red Blood Count 3.29 MC/CUMM (3.8-5.5); Red Cell Distribution Width 15.8 % (9.3-17.3); White Blood Count 3.3 T/CUMM (4-12)
[2022-07-15 06:16] LABS: Hypochromia Slight; Microcytosis Slight; Platelet Estimate Decreased
[2022-07-15 06:21] LABS: Bilirubin,Total 0.5 MG/DL (0.20-1.00); Calcium 8.2 MG/DL (8.5-10.1); Osmolality,Calculated 289.4 MOS/KG (273-304)
[2022-07-15 06:25] LABS: Potassium 6.2 MMOL/L (3.5-5.1)
[2022-07-15] MEDS: PANTOPRAZOLE 40 MG TABLET PO SCH ×2 (14:07→17:51)
[2022-07-15] MEDS: carvediloL 6.25 MG TABLET PO SCH ×2 (14:07→17:51)
[2022-07-15] MEDS: SEVELAMER CARBONATE 800 MG TABLET PO SCH ×3 (14:08→17:50)
[2022-07-15] MEDS: DOCUSATE SODIUM 100 MG CAPSULE PO SCH ×2 (14:08→20:34)
[2022-07-15] MEDS: hydrOXYzine HCL 25 MG TABLET PO SCH ×2 (14:08→20:32)
[2022-07-15] MEDS: POTASSIUM CHLORIDE 20 MEQ TABLET PO SCH ×2 (14:08→20:32)
[2022-07-15] MEDS: amLODIPine 2.5 MG TABLET PO SCH (14:09)
[2022-07-15] MEDS: INSULIN GLARGINE 100 UNIT/ML SUBCUT SCH (14:16)
[2022-07-15] MEDS: PIPERACILLIN/TAZOBACTAM 3,375 MG in SODIUM CHLORIDE 0.9% 100 ML IV SCH (14:19)
[2022-07-15] MEDS: cloNIDine 0.1 MG TABLET PO SCH (20:32)
[2022-07-16] MEDS: PIPERACILLIN/TAZOBACTAM 3,375 MG in SODIUM CHLORIDE 0.9% 100 ML IV SCH ×2 (00:54→12:07)
[2022-07-16] MEDS: INSULIN REGULAR 100 UNIT/ML SUBCUT SCH ×4 (02:13→18:16)
[2022-07-16] MEDS: ALBUTEROL/IPRATROPIUM 3 ML NEB RESP TX SCH ×5 (04:35→19:50)
[2022-07-16 05:22] LABS: Basophils % 0.6 % (0.0-0.8); Eosinophils # 0.2 10*3/uL (0.0-0.87); Eosinophils % 6.5 % (0.00-10.9); Hematocrit 27.5 VOL% (35.7-47.0); Hemoglobin 8.6 GM/DL (12.0-16.0); Lymphocytes # 1.3 10*3/uL (1.4-4.0); Mean Corpuscular HGB Conc 31.3 GM/DL (32-36); Mean Platelet Volume 12.7 FL (9.6-12.0); Monocytes # 0.4 10*3/uL (0.11-0.8); Monocytes % 10.8 % (1.7-12.7); Neutrophils % 42.1 % (38.7-73.9); Platelet Count 71 T/CUMM (130-400); Red Blood Count 3.16 MC/CUMM (3.8-5.5); Red Cell Distribution Width 15.8 % (9.3-17.3); White Blood Count 3.3 T/CUMM (4-12)
[2022-07-16 05:38] LABS: Albumin 2.8 G/DL (3.4-5.0); Bilirubin,Total 0.4 MG/DL (0.20-1.00); Calcium 8.3 MG/DL (8.5-10.1); Potassium 4.6 MMOL/L (3.5-5.1); Total Protein 6.9 G/DL (6.4-8.2)
[2022-07-16 05:40] LABS: Platelet Estimate Decreased
[2022-07-16] MEDS ORDERED: fentaNYL 100 MCG/2 ML VIAL ONE (06:48)
[2022-07-16] MEDS ORDERED: MIDAZOLAM 2 MG/2 ML VIAL ONE ×2 (06:48→07:23)
[2022-07-16] MEDS ORDERED: LIDOCAINE 2% 5 ML VIAL ONE (06:50)
[2022-07-16] MEDS ORDERED: ONDANSETRON 4 MG/2 ML VIAL ONE (06:50)
[2022-07-16] MEDS ORDERED: propofoL 200 MG/20 ML VIAL IV ONE (06:50)
[2022-07-16] MEDS ORDERED: BUPIVACAINE MPF 0.25% 10 ML VIAL ONE (06:51)
[2022-07-16] MEDS ORDERED: KETAMINE 500 MG/10 ML VIAL ONE (06:53)
[2022-07-16] MEDS ORDERED: SODIUM CHLORIDE 0.9% 250 ML IV SCH (07:30)
[2022-07-16] MEDS ORDERED: LIDOCAINE 1% 5 ML VIAL ONE (07:46)
[2022-07-16] MEDS ORDERED: ONDANSETRON 4 MG/2 ML VIAL IV PRN (08:46)
[2022-07-16] MEDS ORDERED: HYDROmorphone 1 MG/1 ML SYRINGE IV PRN (08:46)
[2022-07-16] MEDS: hydrOXYzine HCL 25 MG TABLET PO SCH ×2 (10:04→20:32)
[2022-07-16] MEDS: carvediloL 6.25 MG TABLET PO SCH ×2 (10:04→16:54)
[2022-07-16] MEDS: DOCUSATE SODIUM 100 MG CAPSULE PO SCH ×2 (10:04→20:32)
[2022-07-16] MEDS: POTASSIUM CHLORIDE 20 MEQ TABLET PO SCH ×2 (10:04→20:32)
[2022-07-16] MEDS: SEVELAMER CARBONATE 800 MG TABLET PO SCH ×3 (10:04→16:53)
[2022-07-16] MEDS: INSULIN GLARGINE 100 UNIT/ML SUBCUT SCH (10:04)
[2022-07-16] MEDS: PANTOPRAZOLE 40 MG TABLET PO SCH ×2 (10:05→16:54)
[2022-07-16] MEDS: amLODIPine 2.5 MG TABLET PO SCH (10:05)
[2022-07-16] MEDS ORDERED: ONDANSETRON 4 MG/2 ML VIAL IV ONE (10:06)
[2022-07-16] MEDS: ONDANSETRON 4 MG/2 ML VIAL IV PRN ×2 (10:08→16:54)
[2022-07-16] MEDS: cloNIDine 0.1 MG TABLET PO SCH (20:32)
[2022-07-17] MEDS: PIPERACILLIN/TAZOBACTAM 3,375 MG in SODIUM CHLORIDE 0.9% 100 ML IV SCH ×3 (00:10→23:15)
[2022-07-17] MEDS: ALBUTEROL/IPRATROPIUM 3 ML NEB RESP TX SCH ×8 (00:15→23:36)
[2022-07-17] MEDS: INSULIN REGULAR 100 UNIT/ML SUBCUT SCH ×4 (01:28→17:09)
[2022-07-17] MEDS: ONDANSETRON 4 MG/2 ML VIAL IV PRN (03:00)
[2022-07-17 05:44] LABS: Basophils % 0.6 % (0.0-0.8); Eosinophils # 0.2 10*3/uL (0.0-0.87); Eosinophils % 5.4 % (0.00-10.9); Hematocrit 27.5 VOL% (35.7-47.0); Hemoglobin 8.6 GM/DL (12.0-16.0); Lymphocytes # 1.2 10*3/uL (1.4-4.0); Lymphocytes % 33.2 % (21.3-54.2); Mean Corpuscular HGB Conc 31.3 GM/DL (32-36); Mean Corpuscular Volume 88.1 FL (87-102); Monocytes # 0.3 10*3/uL (0.11-0.8); Monocytes % 8.2 % (1.7-12.7); Neutrophils % 52.6 % (38.7-73.9); Platelet Count 60 T/CUMM (130-400); Red Blood Count 3.12 MC/CUMM (3.8-5.5); Red Cell Distribution Width 15.8 % (9.3-17.3); White Blood Count 3.6 T/CUMM (4-12)
[2022-07-17 06:02] LABS: Albumin 2.7 G/DL (3.4-5.0); Bilirubin,Total 0.4 MG/DL (0.20-1.00); Calcium 7.5 MG/DL (8.5-10.1); Hypochromia Slight; Microcytosis Slight; Osmolality,Calculated 282.2 MOS/KG (273-304); Platelet Estimate Decreased; Total Protein 6.9 G/DL (6.4-8.2)
[2022-07-17 06:11] LABS: Potassium 6.4 MMOL/L (3.5-5.1)
[2022-07-17] MEDS: SEVELAMER CARBONATE 800 MG TABLET PO SCH ×3 (11:02→17:09)
[2022-07-17] MEDS: PANTOPRAZOLE 40 MG TABLET PO SCH ×2 (11:02→17:09)
[2022-07-17] MEDS: DOCUSATE SODIUM 100 MG CAPSULE PO SCH ×2 (11:03→20:48)
[2022-07-17] MEDS: POTASSIUM CHLORIDE 20 MEQ TABLET PO SCH ×2 (11:03→20:49)
[2022-07-17] MEDS: hydrOXYzine HCL 25 MG TABLET PO SCH ×2 (11:55→20:49)
[2022-07-17] MEDS: carvediloL 6.25 MG TABLET PO SCH ×2 (11:55→17:09)
[2022-07-17] MEDS: amLODIPine 2.5 MG TABLET PO SCH (11:55)
[2022-07-17] MEDS: INSULIN GLARGINE 100 UNIT/ML SUBCUT SCH (11:57)
[2022-07-17] MEDS: cloNIDine 0.1 MG TABLET PO SCH (20:49)
[2022-07-18] MEDS: ALBUTEROL/IPRATROPIUM 3 ML NEB RESP TX SCH ×3 (03:09→11:35)
[2022-07-18 05:26] LABS: Eosinophils # 0.2 10*3/uL (0.0-0.87); Eosinophils % 5.8 % (0.00-10.9); Hematocrit 28.2 VOL% (35.7-47.0); Hemoglobin 8.8 GM/DL (12.0-16.0); Immature Granulocytes % 0.3 %; Immature Granulocytes Absolute 0.01 #; Lymphocytes # 1.4 10*3/uL (1.4-4.0); Lymphocytes % 34.6 % (21.3-54.2); Mean Corpuscular HGB Conc 31.2 GM/DL (32-36); Mean Corpuscular Volume 87.6 FL (87-102); Mean Platelet Volume 12.7 FL (9.6-12.0); Monocytes # 0.3 10*3/uL (0.11-0.8); Monocytes % 7.1 % (1.7-12.7); Neutrophils % 51.2 % (38.7-73.9); Platelet Count 79 T/CUMM (130-400); Red Blood Count 3.22 MC/CUMM (3.8-5.5); Red Cell Distribution Width 15.7 % (9.3-17.3)
[2022-07-18 05:52] LABS: Anisocytosis Slight; Hypochromia Slight; Platelet Estimate Decreased; Poikilocytosis Slight
[2022-07-18 05:55] LABS: Alanine Aminotransferase 31 U/L (13-56); Albumin 2.7 G/DL (3.4-5.0); Alkaline Phosphatase 160 U/L (45-117); Aspartate Amino Transferase 27 U/L (0-37); Bilirubin,Total < 0.39 MG/DL (0.20-1.00); Blood Urea Nitrogen 36 MG/DL (7-18); Calcium 7.8 MG/DL (8.5-10.1); Carbon Dioxide 26 MMOL/L (21-32); Chloride 104 MMOL/L (98-107); Glucose 165 MG/DL (74-106); Osmolality,Calculated 286.7 MOS/KG (273-304); Potassium 5.4 MMOL/L (3.5-5.1); Sodium 138 MMOL/L (136-145); Total Protein 7.2 G/DL (6.4-8.2)
[2022-07-18] MEDS: INSULIN REGULAR 100 UNIT/ML SUBCUT SCH ×3 (06:39→11:15)
[2022-07-18] MEDS: DOCUSATE SODIUM 100 MG CAPSULE PO SCH (09:38)
[2022-07-18] MEDS: amLODIPine 2.5 MG TABLET PO SCH (09:38)
[2022-07-18] MEDS: POTASSIUM CHLORIDE 20 MEQ TABLET PO SCH (09:38)
[2022-07-18] MEDS: PANTOPRAZOLE 40 MG TABLET PO SCH (09:38)
[2022-07-18] MEDS: SEVELAMER CARBONATE 800 MG TABLET PO SCH ×2 (09:38→11:44)
[2022-07-18] MEDS: INSULIN GLARGINE 100 UNIT/ML SUBCUT SCH (09:39)
[2022-07-18] MEDS: hydrOXYzine HCL 25 MG TABLET PO SCH (09:39)
[2022-07-18] MEDS: carvediloL 6.25 MG TABLET PO SCH (09:39)
[2022-07-18 11:15] VITALS: BP 159/79
[2022-07-18] MEDS: PIPERACILLIN/TAZOBACTAM 3,375 MG in SODIUM CHLORIDE 0.9% 100 ML IV SCH (11:44)
== END 2022-07-18 13:25 | disposition home or self-care (01) | DRG 952 ==
LOC: N.3E 18:46 → N.ED 18:46 → N.3E 21:46
PROVIDERS: ADMIT Family Medicine; ATTEND Family Medicine